=== PATIENT | female | born 1935 | race Caucasian/White ===

== ENCOUNTER 2018-07-14 20:12 | Emergency (ER) | payer MEDICARE, OTHER ==
[~2018-07-14] VITALS: Ht 170.2 cm; Wt 65.8 kg
[~2018-07-14 20:12] MED LIST: ATORVASTATIN CA10 MG PO; CLARITIN10 M1 PO; CLONIDINE HCL0.1 MG PO; FLONASE16 GM IH; HYDROXYZINE HCL10 MG PO; IBUPROFEN200 MG PO; LANSOPRAZOLE30 MG PO; LEVAQUIN500 MG PO; LOPRESSOR50 MG PO; LOSARTAN POTAS100 MG PO; MECLIZINE HCL12.5 MG PO; METOPROLOL TART50 MG PO; MIRALAX17 GM PO; MYRBETRIQ25 MG PO; NORCO 5-325 TA1 EACH PO; NORVASC10 MG PO; NORVASC5 MG PO; PRESERVISION T1 EACH PO; PRINIVIL10 MG PO; SUCRALFATE1 GM PO; TESSALON PERLE100 MG PO; XANAX0.25 MG PO; ZOLPIDEM TARTRA10 MG PO
--- OUTSIDE RECORDS SUMMARY | 2018-07-14 20:19 | XMS REPORT | Continuity of Care Document ---
Author Author [facility] Interface Address Unknown Phone Unavailable Problems Problem Status Onset Date Classification Date Reported Comments Source ABD PAIN Active 03/18/2016 [facility] PROCTITIS, CONSTIPATION, GI BLEED Active 03/18/2016 [facility] FECAL IMPACTION Active 03/18/2016 [facility] 241.0 THYROID NODULE Active 03/17/2014 [facility] VERTIGO Active 02/21/2013 [facility] DIZZINESS Active 02/21/2013 [facility] Nodular thyroid disease Active Problem 02/28/2018 [facility] Hyperlipidemia, unspecified Active Problem 02/28/2018 [facility] Nodular goiter Active Problem 05/25/2017 [facility] GERD Active Problem 02/28/2018 [facility] Insomnia Active Problem 02/28/2018 [facility] Hyperlipidemia Active Problem 02/28/2018 [facility] CIDP Active Problem 02/28/2018 [facility] Other pruritus Active Problem 02/28/2018 [facility] Anxiety Active Problem 02/28/2018 [facility] Vertigo Active Problem 02/28/2018 [facility] Schatzki's ring Active Problem 02/28/2018 [facility] Dysphagia, unspecified type Active Problem 02/28/2018 [facility] Generalized anxiety disorder Active Diagnosis 02/28/2018 [facility] Benign essential hypertension Active Problem 02/28/2018 [facility] Diverticulosis of intestine without bleeding, unspecified intestinal tract location Active Problem 02/28/2018 [facility] Goiter Active Problem 02/28/2018 [facility] Hiatal hernia Active Problem 02/28/2018 [facility] Benign essential tremor Active Problem 02/28/2018 [facility] Gastroesophageal reflux disease, esophagitis presence not specified Active Problem 02/28/2018 [facility] Primary insomnia Active Problem 02/28/2018 [facility] Insomnia Active Problem 09/26/2014 [facility] URI Active Diagnosis 12/24/2013 [facility] Cough Active Diagnosis 02/16/2013 [facility] Anxiety Active Problem 09/26/2014 [facility] GERD Active Problem 09/26/2014 [facility] HTN Active Problem 09/04/2014 [facility] CIDP Active Problem 09/26/2014 [facility] Allergic dermatitis Active Diagnosis 04/15/2014 [facility] Generalized anxiety disorder Active Problem 09/26/2014 [facility] Adverse effect of unspecified drugs, medicaments and biological substances, initial encounter Active Diagnosis 05/17/2017 [facility] HTN , benign Active Problem 09/26/2014 [facility] Seasonal allergies Active Diagnosis 12/24/2013 [facility] Left shoulder pain Active Diagnosis 12/24/2013 [facility] Thyroid nodule Active Problem 03/11/2016 [facility] Goiter Active Problem 09/26/2014 [facility] Benign essential tremor Active Problem 09/26/2014 [facility] Allergic rhinitis Active Diagnosis 04/15/2014 [facility] Post-nasal drip Active Diagnosis 04/15/2014 [facility] Radiculopathy Active Diagnosis 12/24/2013 [facility] Benign positional vertigo Active Diagnosis 12/24/2013 [facility] Radiculopathy affecting upper extremity Active Diagnosis 12/24/2013 [facility] Vertigo Active Diagnosis 04/15/2014 [facility] Itchy skin Active Diagnosis 04/15/2014 [facility] Edema, lower extremity Active Diagnosis 04/15/2014 [facility] Hospital discharge follow-up Active Diagnosis 04/15/2014 [facility] Cellulitis of hand Active Diagnosis 04/15/2014 [facility] HLD Active Problem 09/26/2014 [facility] Hematuria Active Diagnosis 07/29/2015 [facility] Body mass index of 22.0 to 22.9 in adult Active Diagnosis 07/16/2015 [facility] Hyperglycemia Active Diagnosis 07/22/2015 [facility] Normal body mass index Active Diagnosis 07/16/2015 [facility] Abnormal finding on urinalysis Active Diagnosis 07/16/2015 [facility] Pneumonia Active Diagnosis 08/05/2015 [facility] Essential tremor Active Diagnosis 07/16/2015 [facility] Cough Active Diagnosis 08/05/2015 [facility] Urinary tract infection Active Diagnosis 08/05/2015 [facility] Essential hypertension Active Diagnosis 07/22/2015 [facility] Prediabetes Active Diagnosis 07/22/2015 [facility] Dysuria Active Diagnosis 07/22/2015 [facility] Sinusitis Active Diagnosis 11/20/2015 [facility] Chronic hoarseness Active Diagnosis 11/20/2015 [facility] Gastroenteritis Active Diagnosis 07/11/2015 [facility] Abdominal pain Active Diagnosis 07/11/2015 [facility] Lower respiratory tract infection Active Diagnosis 07/11/2015 [facility] Recurrent pneumonia Active Diagnosis 10/27/2015 [facility] URI with cough and congestion Active Diagnosis 07/25/2016 [facility] Body mass index of 19 or less in adult Active Diagnosis 06/09/2016 [facility] Underweight Active Diagnosis 06/09/2016 [facility] Upper respiratory tract infection, unspecified type Active Diagnosis 06/09/2016 [facility] Routine general medical examination at a health care facility Active Diagnosis 06/09/2016 [facility] Degenerative disc disease Resolved Problem 03/24/2016 [facility] Hiatal hernia Resolved Problem 03/24/2016 [facility] Hypertension Resolved Problem 03/24/2016 [facility] Impaired glucose tolerance Resolved Problem 03/24/2016 [facility] Neuropathy Resolved Problem 03/24/2016 [facility] NONTOX UNINODULAR GOITER Active [facility] FECAL IMPACTION Active [facility] Medications Medication Details Route Status Patient Instructions Ordering Provider Order Date Source Toprol XL 1 tablet Orally Active 25 MG Orally Once a day Harrison 05/30/2017 [facility] Ceftin 1 tablet Orally Active 250 MG Orally Twice a day Lewis 07/14/2016 [facility] Amoxicillin 1 capsule Orally Active 250 MG Orally every 8 hrs Rendon Orourke 06/01/2016 [facility] Tylenol 650 mg, 2 tab, Route: PO, Drug form: TAB, Q6H, Dosing Weight 58.182, kg, PRN Pain Score 4-6, Start date: 03/20/16 15:41:00 [employer], Duration: 30 day, Stop date: 04/19/16 15:40:00 CSTNotes: Do not exceed 4 gm/day. (Same as: Tylenol) No Longer Active 03/20/2016 [facility] Losartan 100 mg, 2 tab, Route: PO, Drug form: TAB, QAM, Dosing Weight 58.182, kg, Start date: 03/20/16 9:00:00 [employer], Duration: 30 day, Stop date: 04/18/16 9:00:00 CSTNotes: (Same as: Cozamicaela) No Longer Active 03/20/2016 [facility] Streptococcus pneumoniae serotype 1 capsular antigen diphtheria [id number] protein conjugate vaccine / Streptococcus pneumoniae serotype 14 capsular antigen diphtheria [id number] protein conjugate vaccine / Streptococcus pneumoniae serotype 18C capsular antigen d 0.5 mL, Route: IM, Drug Form: INJ, Daily, Start date: 03/20/16 9:00:00 [employer], Stop date: 03/20/16 15:00:00 CSTNotes: Lightly roll vial (DO NOT SHAKE) before administration. (Same as: Prevnar 13) Inactive 03/20/2016 [facility] zolpidem 5 mg, 1 tab, Route: PO, Drug form: TAB, Bedtime, Dosing Weight 58.182, kg, Start date: 03/19/16 21:00:00 [employer], Duration: 30 day, Stop date: 04/17/16 21:00:00 CSTNotes: (Same As: Ambien) No Longer Active 03/20/2016 [facility] Dulcolax Laxative 10 mg, 1 supp, Route: ID, Drug form: SUPP, BID, Dosing Weight 58.182, kg, Start date: 03/19/16 17:00:00 [employer], Duration: 30 day, Stop date: 04/18/16 9:00:00 CSTNotes: (Same As: Dulcolax, Bisco-Lax) No Longer Active 03/19/2016 [facility] Miralax 17 gm, 1 pkt, Route: PO, Drug form: PWDR, BID, Dosing Weight 58.182, kg, Start date: 03/19/16 17:00:00 [employer], Duration: 30 day, Stop date: 04/18/16 9:00:00 CSTNotes: Dissolve in 8 oz of water or juice. (Same as: Miralax) No Longer Active 03/19/2016 [facility] oxybutynin 5 mg, 1 tab, Route: PO, Drug form: TAB, BID, Dosing Weight 58.182, kg, Start date: 03/19/16 17:00:00 [employer], Duration: 30 day, Stop date: 04/18/16 9:00:00 CSTNotes: Same as: Ditropan) No Longer Active 03/19/2016 [facility] Amlodipine 5 mg, 1 tab, Route: PO, Drug form: TAB, QPM, Dosing Weight 58.182, kg, Start date: 03/19/16 17:00:00 [employer], Duration: 30 day, Stop date: 04/17/16 17:00:00 CSTNotes: (Same as: Norvasc) No Longer Active 03/19/2016 [facility] Protonix 40 mg, 1 pkt, Route: NG, Drug form: GRAN/REC, Before Dinner, Dosing Weight 58.182, kg, Start date: 03/19/16 16:30:00 [employer], Duration: 30 day, Stop date: 04/17/16 16:30:00 [employer] No Longer Active 03/19/2016 [facility] Sodium Chloride 0.154 MEQ/ML Injectable Solution 1,000 mL, Rate: 100 ml/hr, Infuse over: 10 hr, Route: IV, Dosing Weight 58.182 kg, Total Volume: 1,000, Start date: 03/19/16 12:33:00 [employer], Duration: 30 day, Stop date: 04/18/16 12:32:00 [employer] No Longer Active 03/19/2016 [facility] Golytely 4,000 ml, Route: PO, Drug Form: PDR/REC, Dosing Weight 58.182, kg, ONCE, Start date: 03/19/16 12:32:00 [employer], Duration: 1 doses or times, Stop date: 03/19/16 12:32:00 CSTNotes: (polyethylene glycol electr olyte solution 4 Liter bottle) (Same as: Golytely, Colyte) Inactive 03/19/2016 [facility] Lactulose 20 gm, 30 ml, Route: PO, Drug Form: SYRP, Dosing Weight 58.182, kg, Daily, PRN Constipation, Start date: 03/19/16 12:32:00 [employer], Duration: 30 day, Stop date: 04/18/16 12:31:00 CSTNotes: (Same as:Chronulac) No Longer Active 03/19/2016 [facility] zolpidem 5 mg, 1 tab, Route: PO, Drug form: TAB, Bedtime, Dosing Weight 58.182, kg, PRN Sleep, Start date: 03/19/16 12:30:00 [employer], Duration: 30 day, Stop date: 04/18/16 12:29:00 CSTNotes: (Same As: Ambien) No Longer Active 03/19/2016 [facility] Meclizine 25 mg, 1 tab, Route: PO, Drug form: TAB, TID, Dosing Weight 58.182, kg, PRN Dizziness, Start date: 03/19/16 12:30:00 [employer], Duration: 30 day, Stop date: 04/18/16 12:29:00 CSTNotes: (Same as: Antivert) No Longer Active 03/19/2016 [facility] Clonidine Hydrochloride 0.1 MG Oral Tablet 0.1 mg, 1 tab, Route: PO, Drug form: TAB, Daily, Dosing Weight 58.182, kg, PRN Elevated BP, Start date: 03/19/16 12:29:00 [employer], Duration: 30 day, Stop date: 04/18/16 12:28:00 [employer] DES[employer], htnNotes: (Same As: Catapres) No Longer Active 03/19/2016 [facility] Alprazolam 0.25 MG Oral Tablet 0.25 mg, 1 tab, Route: PO, Drug form: TAB, BID, Dosing Weight 58.182, kg, PRN as needed for anxiety, Start date: 03/19/16 12:29:00 [employer], Duration: 30 day, Stop date: 04/18/16 12:28:00 CSTNotes: With food or milk (Same as: Xanax) No Longer Active 03/19/2016 [facility] oxybutynin 5 mg oral tablet 5 mg=1 tab, PO, BID, # 60 tab, 1 Refill(s) Active 03/19/2016 [facility] Alprazolam 0.25 MG Oral Tablet 0.25 mg=1 tab, PO, BID, PRN anxiety, stress, # 20 tab, 0 Refill(s) Active 03/19/2016 [facility] meclizine 25 mg oral tablet 25 mg=1 tab, PO, TID, PRN for dizziness, # 60 tab, 0 Refill(s) Active 03/19/2016 [facility] zolpidem 10 mg oral tablet 10 mg=1 tab, PO, Bedtime, # 14 tab, 0 Refill(s) No Longer Active 03/19/2016 [facility] Ondansetron 4 mg, 2 mL, Route: IVP, Drug form: INJ, Q6H, Dosing Weight 54.545, kg, PRN Nausea & Vomiting, Start date: 03/19/16 9:22:00 [employer], Duration: 30 day, Stop date: 04/18/16 9:21:00 CSTNotes: (Same as: Zofran) MEDICATION WASTE Product Size: 4 mg Product Wasted: ___ mg No Longer Active 03/19/2016 [facility] Docusate 100 mg, 1 cap, Route: PO, Drug form: CAP, BID, Dosing Weight 54.545, kg, PRN Constipation, Start date: 03/19/16 9:22:00 [employer], Duration: 30 day, Stop date: 04/18/16 9:21:00 CSTNotes: (Same as: Colace) (Do Not Crush) No Longer Active 03/19/2016 [facility] Zofran 4 mg, Route: IVP, Drug form: INJ, ONCE, Dosing Weight 54.545, kg, Priority: STAT, Start date: 03/19/16 7:28:00 [employer] DES[employer], Stop date: 03/19/16 7:28:00 [employer] Inactive 03/19/2016 [facility] Medrol (Mathew) as directed Orally Active 4 mg Orally as directed [facility] 11/05/2015 [facility] Augmentin 1 tablet Orally Active 875-125 MG Orally every 12 hrs Justice Orourke 10/21/2015 [facility] Macrobid 1 capsule with food Orally Active 100 mg Orally every 12 hrs Silvestre 07/31/2015 [facility] Bromfed DM 10 ml as needed Orally Active 30-2-10 MG/5ML Orally every 6 hrs prn Perry 07/31/2015 [facility] Zithromax Z-Mathew 2 tablets on the first day, then 1 tablet daily for 4 days Orally Active 250 MG Orally Once a day Perry 07/31/2015 [facility] Macrobid 1 capsule with food Orally Active 100 mg Orally every 12 hrs Silvestre 07/17/2015 [facility] Zithromax Z-Mathew 2 tablets on the first day, then 1 tablet daily for 4 days Orally Active 250 MG Orally Once a day Perry 07/17/2015 [facility] Medrol (Mathew) as directed Orally Active 4 mg Orally as directed [facility] Orourke 07/08/2015 [facility] Levaquin 1 tablet Orally No Longer Active 500 mg Orally Once a day Silvestre 07/07/2015 [facility] Klonopin 1/2 half tablet Orally No Longer Active 1 MG Orally Twice a day JusticeSharad 08/26/2014 [facility] Lipitor 1 tablet Orally Active 10 mg Orally Once a day Ghebranious 08/26/2014 [facility] Hydrochlorothiazide 1 tablet Orally Active 25 MG Orally Once a day Ghebranious 04/08/2014 [facility] Antivert 1 tablet Orally Active 25 MG Orally tid as needed for dizziness Justice Orourke 03/17/2014 [facility] Antivert 1 tablet Orally Active 25 MG Orally tid as needed for dizziness Lewis 03/17/2014 [facility] HydrOXYzine HCl 1 tablet as needed Orally Active 10 mg Orally Three times a day prn Lewis 11/12/2013 [facility] Bromfed DM 10 ml as needed Orally Active 30-2-10 MG/5ML Orally every 6 hrs Ghebranious 11/04/2013 [facility] Zanaflex 1 tablet as needed Orally Active 2 MG Orally qhs prn Ghebranious 11/04/2013 [facility] Naprosyn 1 tablet as needed Orally Active 500 mg Orally every 12 hrs Ghebranious 11/04/2013 [facility] Keflex 1 capsule Orally Active 500 mg Orally Twice a day Ghebranious 11/04/2013 [facility] Ceftin 1 tablet Orally Active 250 MG Orally twice a day (bid) Ghebranious 03/11/2013 [facility] Neurontin 1 capsule Orally Active 100 mg Orally Three times a day Ghebranious 02/25/2013 [facility] zolpidem 10 mg oral tablet 10 mg, 1 tab, PO, Bedtime, PRN, 30 tab, Insomnia, Substitution Allowed, TAB Active 02/23/2013 [facility] meclizine 25 mg oral tablet 25 mg, 1 tab, PO, TID, 90 tab, Substitution Allowed, TAB Active 02/23/2013 [facility] losartan 50 mg oral tablet 100 mg, 2 tab, PO, QAM, 30 tab, Substitution Allowed, TAB Active 02/23/2013 [facility] fluocinonide topical 0.05% cream 1 appl, TOP, BID, 60 gm, Substitution Allowed, CRM Active 02/23/2013 [facility] clonidine 0.1 mg oral tablet 0.1 mg, 1 tab, PO, Daily, PRN, 30 tab, Other -See Comment | SBP>135, Substitution Allowed, TAB Active 02/23/2013 [facility] amLODipine 5 mg oral tablet 5 mg, 1 tab, PO, QPM, 30 tab, Substitution Allowed, TAB Active 02/23/2013 [facility] losartan 100 mg, 2 tab, Route: PO, Drug form: TAB, QAM, Dosing Weight 68.182, kg, Start date: 02/23/13 9:00:00, Duration: 30 day, Stop date: 03/24/13 9:00:00(Same as: Hiwot) Inactive 02/23/2013 [facility] lansoprazole 30 mg, Route: PO, Drug form: DRC, QAM, Dosing Weight 68.182, kg, Start date: 02/23/13 9:00:00, Duration: 30 day, Stop date: 03/24/13 9:00:00 No Longer Active 02/23/2013 [facility] Protonix 40 mg, 1 tab, Route: PO, Drug form: ECTAB, Before Breakfast, Start date: 02/23/13 7:30:00, Duration: 30 day, Stop date: 03/24/13 7:30:00Tablet should not be chewed or crushed. (Same as: Protonix) Inactive Ghebranious 02/23/2013 [facility] fluocinonide topical 0.05% cream 1 appl, Route: TOP, BID, Drug form: CRM, Start date: 02/22/13 17:00:00, Duration: 30 day, Stop date: 03/24/13 9:00:00(Same as: Lidex) No Longer Active ebranious 02/22/2013 [facility] amLODipine 5 mg, 1 tab, Route: PO, Drug form: TAB, QPM, Dosing Weight 68.182, kg, Start date: 02/22/13 17:00:00, Duration: 30 day, Stop date: 03/23/13 17:00:00(Same as: Norvasc) No Longer Active ebranious 02/22/2013 [facility] zolpidem 10 mg, 1 tab, Route: PO, Drug form: TAB, Bedtime, Dosing Weight 68.182, kg, PRN Insomnia, Start date: 02/22/13 13:19:00, Duration: 30 day, Stop date: 03/24/13 13:18:00(Same As: Ambien) No Longer Active ebranious 02/22/2013 [facility] clonidine 0.1 mg oral tablet 0.1 mg, 1 tab, Route: PO, Drug form: TAB, Daily, Dosing Weight 68.182, kg, PRN Other -See Comment, Start date: 02/22/13 13:19:00, Duration: 30 day, Stop date: 03/24/13 13:18:00, SBP>135(Same As: Catapres) [facility] meclizine 25 mg oral tablet, chewable 25 mg, 1 tab, CHEW, TID, PRN, 60 tab, for motion sickness, Substitution Allowed, CHEWTAB On Hold Ghebranious 02/22/2013 [facility] Pepcid 20 mg, 1 tab, Route: PO, Drug form: TAB, BID, Dosing Weight 68.182, kg, Start date: 02/22/13 9:00:00, Duration: 30 day, Stop date: 03/23/13 17:00:00(Same as: Pepcid) No Longer Active [place] 02/22/2013 [facility] aspirin 325 mg tablet 325 mg, Route: PO, Drug form: TAB, Daily, Dosing Weight 68.182, kg, Start date: 02/22/13 9:00:00, Duration: 30 day, Stop date: 03/23/13 9:00:00 No Longer Active Jassi 02/22/2013 [facility] Antivert 25 mg, 1 tab, Route: PO, Drug form: TAB, TID, Dosing Weight 68.182, kg, Start date: 02/22/13 9:00:00, Duration: 30 day, Stop date: 03/23/13 17:00:00(Same as: Antivert) [facility] SoluMedrol 100 mg, 1.6 mL, Route: IVP, Drug form: INJ, ONCE, Dosing Weight 68.182, kg, Priority: NOW, Start date: 02/22/13 8:46:00, Stop date: 02/22/13 8:46:00(Same as:Solu-Medrol, A-Methapred) [facility] atropine 0.5 mg, 5 mL, Route: IVP, Drug form: INJ, PRN, PRN Bradycardia, Start date: 02/21/13 17:59:00, Duration: 30 day, Stop date: 03/23/13 16:58:00 [facility] nitroglycerin 0.4 mg sublingual tablet 0.4 mg, 1 tab, Route: SL, Drug form: TAB, Q5Min, PRN Chest Pain, Start date: 02/21/13 17:59:00, Duration: 30 day, Stop date: 03/23/13 16:58:00(Same as:Nitroquick, Nitrostat) "Do Not Crush" Sublingual tablet [facility] Saline Flush 0.9% 5 ml, Route: IVP, Drug Form: INJ, Dosing Weight 68.182, kg, PRN, PRN Line Flush, Start date: 02/21/13 17:06:00, Duration: 30 day, Stop date: 03/23/13 16:05:00Same as: BD Posiflush Sterile No Longer Active [facility] 02/21/2013 [facility] ondansetron 4 mg, 2 mL, Route: IVP, Drug form: INJ, Q8H, Dosing Weight 68.182, kg, PRN Nausea & Vomiting, Start date: 02/21/13 17:06:00, Duration: 30 day, Stop date: 03/23/13 17:05:00(Same as: Zofran) No Longer Active [facility] 02/21/2013 [facility] acetaminophen 650 mg, 20.3 mL, Route: PO, Drug form: LIQ, Q4H, Dosing Weight 68.182, kg, PRN Pain 1-3/Temp > 100.4 F, Start date: 02/21/13 17:06:00, Duration: 30 day, Stop date: 03/23/13 17:05:00Max [id number]/day (4 gm/day). (Same as: Tylenol) No Longer Active [facility] 02/21/2013 [facility] docusate 100 mg, 1 cap, Route: PO, Drug form: CAP, BID, Dosing Weight 68.182, kg, PRN Constipation, Start date: 02/21/13 17:06:00, Duration: 30 day, Stop date: 03/23/13 17:05:00(Same as: Colace) (Do Not Crush) No Longer Active [facility] 02/21/2013 [facility] meclizine 25 mg, 1 tab, Route: PO, Drug form: TAB, QID, Dosing Weight 68.182, kg, Priority: STAT, Start date: 02/21/13 17:06:00, Duration: 30 day, Stop date: 03/23/13 17:00:00(Same as: Antivert) No Longer Active [facility] 02/21/2013 [facility] clonidine 0.1 mg oral tablet 0.1 mg, PO, Daily, PRN, 60 tab, as needed for diastolic BP > 90, Substitution Allowed On Hold [facility] 02/21/2013 [facility] fluocinonide topical 0.05% cream 1 appl, TOP, BID, 15 gm, Substitution Allowed, to affected area, CRMto affected area [facility] zolpidem 10 mg oral tablet 10 mg, 1 tab, PO, Bedtime, PRN, for sleep, Substitution Allowed, TAB On Hold ious 02/21/2013 [facility] amLODipine 5 mg oral tablet 5 mg, 1 tab, PO, QPM, 30 tab, Substitution Allowed, TAB [facility] losartan 100 mg oral tablet 100 mg, 1 tab, PO, QAM, 30 tab, Substitution Allowed, TAB [facility] lansoprazole 30 mg oral delayed release capsule 30 mg, 1 cap, PO, QAM, 30 cap, Substitution Allowed On Hold 02/21/2013 [facility] aspirin 81 mg tablet, chewable 1 tab, Route: PO, ONCE, Dosing Weight 68.182, kg, Start date: 02/21/13 11:21:00, Stop date: 02/21/13 11:21:00 Inactive Jassi 02/21/2013 [facility] SoluMedrol 100 mg, Route: IV, ONCE, Dosing Weight 68.182, kg, Start date: 02/21/13 11:21:00, Stop date: 02/21/13 11:21:00 Inactive Jassi 02/21/2013 [facility] meclizine 25 mg, Route: PO, Drug form: TAB, ONCE, Dosing Weight 68.182, kg, Priority: STAT, Start date: 02/21/13 11:20:00, Stop date: 02/21/13 11:20:00 Inactive Jassi 02/21/2013 [facility] Lidex as directed Externally Active 0.05 % Externally twice a day (bid) as needed (prn) Gilberto 02/11/2013 [facility] Lidex as directed Externally Active 0.05 % Externally twice a day (bid) as needed (prn) Ghebranious 02/11/2013 [facility] Zolpidem Tartrate 1 tablet orally Active 10 mg orally once every night as needed Justice Orourke 12/26/2012 [facility] Zolpidem Tartrate 1 tablet Orally Active 5 MG Orally once every night as needed ebranious 12/26/2012 [facility] Zolpidem Tartrate 1 tablet PO Active 10 mg PO once every night as needed Ghebranious 12/26/2012 [facility] Zolpidem Tartrate 1 tablet at bedtime Orally Active 5 MG Orally qhs Ghebranious 12/26/2012 [facility] Zolpidem Tartrate 1 tablet orally Active 10 mg orally once every night as needed Lewis 12/26/2012 [facility] Alprazolam 1 tablet Orally Active 0.25 MG Orally once a day prn USE SPARINGLY Justice Orourke 09/13/2012 [facility] Alprazolam 1 tablet Orally Active 0.25 MG Orally once a day prn Rendon Orourke 09/13/2012 [facility] Alprazolam 1 tablet Orally Active 0.25 MG Orally daily as needed ebranious 09/13/2012 [facility] Atorvastatin Calcium 1 tablet Orally Active 10 mg Orally Once a day Justice Orourke [facility] Losartan Potassium 1 tablet orally Active 100 mg orally Once a day Justice Orourke [facility] Lansoprazole 1 tablet Orally Active 30 mg Orally once a day Lewis [facility] Clonidine HCl 1 tablet Orally No Longer Active 0.1 MG Orally once every night Justice Orourke [facility] Amlodipine Besylate 1 tablet orally Active 5 MG orally once a day Ghebranious [facility] HydrOXYzine HCl TAKE 1 TABLET THREE TIMES DAILY NEEDED NA Active 10 MG Justice Orourke [facility] Lipitor 1 tablet Orally Active 10 Orally Once a day Justice Orourke [facility] Atorvastatin Calcium 1 tablet Orally Active 10 MG Orally Once a day Justice Orourke [facility] Lansoprazole TAKE 1 CAPSULE EVERY DAY NA Active 30 MG Justice Orourke [facility] Amlodipine Besylate 1 tablet by mouth Active 5 MG by mouth daily Justice Orourke [facility] Losartan Potassium 1 tablet Orally Active 100 mg Orally Once a day Justice Orourke [facility] Oxybutynin Chloride 1 tablet Orally Active 5 MG Orally Twice a day Justice Orourke [facility] Antivert 1 tablet as needed Orally Active 25 MG Orally three times a day (tid) as needed (prn) Melquiades [facility] Zofran Unknown Orally Active 4 MG Orally Ghebranious [facility] Amlodipine Besylate 1 tablet orally Active 5 MG orally once a day Justice Orourke [facility] Oxybutynin Chloride 1 tablet Orally Active 5 MG Orally Twice a day Lewis [facility] Losartan Potassium TAKE 1 TABLET ONE TIME DAILY NA Active 100 MG Lewis [facility] Allergies, Adverse Reactions, Alerts Substance Category Reaction Severity Reaction type Status Date Reported Comments Source Morphine Sulfate Adverse Reaction Info Not Available Adverse Reaction Active 05/12/2017 [facility] Aspir-81 Adverse Reaction Info Not Available Adverse Reaction Active 05/12/2017 [facility] aspirin drug allergy Allergy [facility] morphine drug allergy Allergy [facility] Immunizations Immunization Date Given Site Status Last Updated Comments Source pneumococcal 13-valent vaccine 03/20/2016 Not Given [facility] Results Order Name Results Value Reference Range Date Interpretation Comments Source CHEM PANEL eGFR 86 mL/min/1.73m2 03/21/2016 Result Comment: The eGFR is calculated using the CKD-EPI formula. In most young, healthy individuals the eGFR will be >90 mL/min/1.73m2. The eGFR declines with age. An eGFR of 60-89 may be normal in some populations, particularly the elderly, for whom the CKD-EPI formula has not been extensively validated. Use of the eGFR is not recommended in the following populations: Individuals with unstable creatinine concentrations, including patients and those with serious co-morbid conditions. Patients with extremes in muscle mass or diet. The data above are obtained from the National Kidney Disease Education Program (NKDEP) which additionally recommends that when the eGFR is used in patients with extremes of body mass index for purposes of drug dosing, the eGFR should be multiplied by the estimated BMI. [facility] CHEM PANEL Chloride Lvl 109 meq/L 95 - 109 03/21/2016 [facility] CHEM PANEL Potassium Lvl 3.1 meq/L 3.5 - 5.1 03/21/2016 [facility] CHEM PANEL Sodium Lvl 145 meq/L 135 - 145 03/21/2016 [facility] CHEM PANEL Calcium Lvl 7.6 mg/dL 8.5 - 10.5 03/21/2016 [facility] CHEM PANEL CO2 28 meq/L 24 - 32 03/21/2016 [facility] CHEM PANEL Creatinine Lvl 0.58 mg/dL 0.50 - 1.40 03/21/2016 [facility] CHEM PANEL BUN 6 mg/dL 7 - 22 03/21/2016 [facility] CHEM PANEL Glucose Lvl 69 mg/dL 70 - 99 03/21/2016 [facility] CHEM PANEL AGAP 11.1 meq/L 10.0 - 20.0 03/21/2016 [facility] HEMATOLOGY WBC 6.1 K/CMM 3.7 - 10.4 03/21/2016 [facility] HEMATOLOGY RBC 3.60 M/CMM 4.20 - 5.40 03/21/2016 [facility] HEMATOLOGY Hct 31.1 % 36.0 - 48.0 03/21/2016 [facility] HEMATOLOGY Hgb 10.0 g/dL 12.0 - 16.0 03/21/2016 [facility] HEMATOLOGY MPV 9.1 fL 7.4 - 10.4 03/21/2016 [facility] MCH 27.8 pg 27.0 - 31.0 03/21/2016 [facility] MCHC 32.2 g/dL 32.0 - 36.0 03/21/2016 [facility] HEMATOLOGY RDW 13.7 % 11.5 - 14.5 03/21/2016 [facility] HEMATOLOGY Platelet 158 K/CMM 133 - 450 03/21/2016 [facility] HEMATOLOGY MCV 86.5 fL 80.0 - 98.0 03/21/2016 [facility] HEMATOLOGY Lymphocytes 39.3 % 20.0 - 40.0 03/21/2016 [facility] Lymphocytes # 2.4 K/CMM 1.0 - 5.5 03/21/2016 [facility] HEMATOLOGY Segs-Bands # 3.1 K/CMM 1.5 - 8.1 03/21/2016 [facility] HEMATOLOGY Monocytes # 0.5 K/CMM 0.0 - 0.8 03/21/2016 [facility] HEMATOLOGY Eosinophils # 0.1 K/CMM 0.0 - 0.5 03/21/2016 [facility] HEMATOLOGY Segs 50.0 % 45.0 - 75.0 03/21/2016 [facility] HEMATOLOGY Monocytes 8.5 % 2.0 - 12.0 03/21/2016 [facility] HEMATOLOGY Eosinophils 1.8 % 0.0 - 4.0 03/21/2016 [facility] HEMATOLOGY Basophils 0.4 % 0.0 - 1.0 03/21/2016 [facility] HEMATOLOGY Hct 32.6 % 36.0 - 48.0 03/19/2016 [facility] HEMATOLOGY Hgb 10.6 g/dL 12.0 - 16.0 03/19/2016 [facility] URINE AND STOOL Occult Bld Stl Positive *ABN* (03/19/16 5:42 AM) Negative 03/19/2016 [facility] URINE AND STOOL UA Sq Epi Occasional /LPF Few /LPF 03/19/2016 [facility] URINE AND STOOL UA WBC 1 /HPF 0 - 5 03/19/2016 [facility] URINE AND STOOL UA Urobilinogen <=1.0 mg/dL 0.1 - 1.0 03/19/2016 [facility] URINE AND STOOL UA RBC 1 /HPF 0 - 2 03/19/2016 [facility] URINE AND STOOL UA Color Ltyellow 03/19/2016 [facility] URINE AND STOOL UA pH 7.0 5.0 - 8.0 03/19/2016 [facility] URINE AND STOOL UA Protein Negative mg/dL Negative mg/dL 03/19/2016 [facility] URINE AND STOOL UA Spec Grav 1.016 <=1.030 03/19/2016 [facility] URINE AND STOOL UA Glucose Negative mg/dL Negative mg/dL 03/19/2016 [facility] URINE AND STOOL UA Turbidity Clear (03/19/16 5:16 AM) Clear 03/19/2016 [facility] URINE AND STOOL UA Blood Negative (03/19/16 5:16 AM) Negative 03/19/2016 [facility] URINE AND STOOL UA Nitrite Negative (03/19/16 5:16 AM) Negative 03/19/2016 [facility] URINE AND STOOL UA Ketones Negative mg/dL Negative mg/dL 03/19/2016 [facility] URINE AND STOOL UA Bili Negative *NA* (03/19/16 5:16 AM) Negative 03/19/2016 [facility] URINE AND STOOL UA Leuk Est Negative (03/19/16 5:16 AM) Negative 03/19/2016 [facility] BLOOD BANK RESULTS ABO/Rh A POS 03/19/2016 [facility] BLOOD BANK RESULTS Antibody Scrn Negative (03/19/16 3:34 AM) 03/19/2016 [facility] HEMATOLOGY PT 13.0 s 12.0 - 14.7 03/19/2016 [facility] HEMATOLOGY INR 0.96 0.85 - 1.17 03/19/2016 [facility] HEMATOLOGY PTT 33.7 s 22.9 - 35.8 03/19/2016 [facility] CHEM PANEL Lipase Lvl 239 unit/L 73 - 393 03/19/2016 [facility] ELECTROLYTES AGAP 12.3 meq/L 10.0 - 20.0 03/19/2016 [facility] ELECTROLYTES A/G Ratio 1.2 0.7 - 1.6 03/19/2016 [facility] ELECTROLYTES B/C Ratio 23 6 - 25 03/19/2016 [facility] ELECTROLYTES Globulin 3.2 g/dL 2.7 - 4.2 03/19/2016 [facility] ELECTROLYTES eGFR 81 mL/min/1.73m2 03/19/2016 Result Comment: The eGFR is calculated using the CKD-EPI formula. In most young, healthy individuals the eGFR will be >90 mL/min/1.73m2. The eGFR declines with age. An eGFR of 60-89 may be normal in some populations, particularly the elderly, for whom the CKD-EPI formula has not been extensively validated. Use of the eGFR is not recommended in the following populations: Individuals with unstable creatinine concentrations, including patients and those with serious co-morbid conditions. Patients with extremes in muscle mass or diet. The data above are obtained from the National Kidney Disease Education Program (NKDEP) which additionally recommends that when the eGFR is used in patients with extremes of body mass index for purposes of drug dosing, the eGFR should be multiplied by the estimated BMI. [facility] ELECTROLYTES Albumin Lvl 3.9 g/dL 3.5 - 5.0 03/19/2016 [facility] ELECTROLYTES Calcium Lvl 8.9 mg/dL 8.5 - 10.5 03/19/2016 [facility] ELECTROLYTES ALT 20 unit/L 0 - 65 03/19/2016 [facility] ELECTROLYTES Total Protein 7.1 g/dL 6.4 - 8.4 03/19/2016 [facility] ELECTROLYTES Bili Total 0.4 mg/dL 0.2 - 1.3 03/19/2016 [facility] ELECTROLYTES CO2 28 meq/L 24 - 32 03/19/2016 [facility] ELECTROLYTES Chloride Lvl 104 meq/L 95 - 109 03/19/2016 [facility] ELECTROLYTES AST 21 unit/L 0 - 37 03/19/2016 [facility] ELECTROLYTES Alk Phos 51 unit/L 39 - 136 03/19/2016 [facility] ELECTROLYTES Sodium Lvl 141 meq/L 135 - 145 03/19/2016 [facility] ELECTROLYTES Creatinine Lvl 0.69 mg/dL 0.50 - 1.40 03/19/2016 [facility] ELECTROLYTES BUN 16 mg/dL 7 - 22 03/19/2016 [facility] ELECTROLYTES Glucose Lvl 93 mg/dL 70 - 99 03/19/2016 [facility] ELECTROLYTES Potassium Lvl 3.3 meq/L 3.5 - 5.1 03/19/2016 [facility] HEMATOLOGY Monocytes # 0.8 K/CMM 0.0 - 0.8 03/19/2016 [facility] Lymphocytes 16.8 % 20.0 - 40.0 03/19/2016 [facility] HEMATOLOGY Segs 75.4 % 45.0 - 75.0 03/19/2016 [facility] HEMATOLOGY Basophils 0.2 % 0.0 - 1.0 03/19/2016 [facility] Monocytes 7.2 % 2.0 - 12.0 03/19/2016 [facility] HEMATOLOGY Eosinophils 0.4 % 0.0 - 4.0 03/19/2016 [facility] Segs-Bands # 7.9 K/CMM 1.5 - 8.1 03/19/2016 [facility] Lymphocytes # 1.8 K/CMM 1.0 - 5.5 03/19/2016 [facility] MPV 9.0 fL 7.4 - 10.4 03/19/2016 [facility] MCHC 33.8 g/dL 32.0 - 36.0 03/19/2016 [facility] MCH 28.9 pg 27.0 - 31.0 03/19/2016 [facility] Platelet 173 K/CMM 133 - 450 03/19/2016 [facility] RDW 13.6 % 11.5 - 14.5 03/19/2016 [facility] MCV 85.5 fL 80.0 - 98.0 03/19/2016 [facility] WBC 10.5 K/CMM 3.7 - 10.4 03/19/2016 [facility] Hct 36.0 % 36.0 - 48.0 03/19/2016 [facility] Hgb 12.2 g/dL 12.0 - 16.0 03/19/2016 [facility] RBC 4.21 M/CMM 4.20 - 5.40 03/19/2016 [facility] ED Abdomen/Pelvis IV contrast only CT ED Abdomen/Pelvis IV contrast only CT CT ABDOMEN AND PELVIS WITH CONTRAST DATED 03/19/2016. CLINICAL INDICATION: Acute abdominal pain. COMPARISON: None. TECHNIQUE: A CT of the abdomen and pelvis was performed using helical images from the thoracic outlet through the pubic symphysis after the intravenous administration of 100cc Omnipaque 300. The study was ordered without bowel contrast. Sagittal and coronal reconstructions were performed. Delayed postcontrast images were obtained. CT Radiation Dose: JMP=[id number] mGy-cm FINDINGS: SOLID ORGANS: No acute CT abnormalities of the liver, spleen, pancreas, adrenal glands or kidneys are detected. There is no CT evidence of acute renal collecting system obstruction or calcified renal collecting system stone. BILIARY: The patient is status post cholecystectomy with mild postcholecystectomy ectasia of the common bile duct and proximal hepatic ducts. BOWEL: Bowel assessment is limited by the absence of bowel contrast. The wall of the rectum appears thickened with mild injection of the perirectal fat. This appearance suggests proctitis. Several colonic diverticula are identified without CT evidence of acute diverticulitis. Increased fluid is identified within nondilated small bowel as well as in the ascending and transverse colon. No intestinal dilatation is identified to suggest obstruction. The appendix is not identified and may be surgically absent. No secondary signs concerning for appendicitis are noted. PERITONEUM: No free intraperitoneal air or significant free intraperitoneal fluid. RETROPERITONEUM: The abdominal aorta is normal in caliber. No retroperitoneal mass or adenopathy. PELVIS: The patient is status post hysterectomy. The ovaries are not identified and may be surgically absent. No adnexal masses are noted. The urinary bladder is unremarkable. LOWER CHEST: The lung bases appear clear of acute disease. A hiatal hernia is identified in the lower mediastinum. ADDITIONAL COMMENTS: None. IMPRESSION: 1. CT findings suspicious for acute proctitis. 2. Increased fluid is identified within nondilated small bowel. While nonspecific, this pattern could indicate gastroenteritis SL: 131 03/19/2016 - - Read by: Romeo Raza MD Dictated Date/time: 03/19/16 04:19 Electronically Signed by: Romeo Raza MD 03/19/16 04:36 FINAL REPORT [facility] Thyroid scan - Multiple uptakes MS Thyroid scan - Multiple uptakes NM THYROID SCAN AND UPTAKE: HISTORY: Thyroid nodule. PROCEDURE: The patient ingested 233 uCi of I-123 sodium orally followed by uptakes at 6 and 24 hours. Multiplanar imaging of the gland was done at 6 hours. FINDINGS: The 6 hour uptake is 10.7% (normal 6-24%). The 24 hour uptake is 20.1% (normal 10-30%). There is homogeneous uptake of activity in both lobes which appear normal in size. There is no evidence of hot or cold nodules. IMPRESSION: 1. Normal thyroid uptakes. 2. Normal imaging of the thyroid gland. Correlation with ultrasound is suggested to evaluate the clinically described nodule. SL:13 03/26/2014 - - Read by: Abdirahman Iqbal MD Dictated Date/time: 03/27/14 09:15 Electronically Signed by: Abdirahman Iqbal MD 03/27/14 09:19 FINAL REPORT [facility] URINALYSIS UA Color Ltyellow 02/21/2013 [facility] URINALYSIS UA Urobilinogen <=1.0 mg/dL 0.1 - 1.0 02/21/2013 [facility] URINALYSIS UA Nitrite Negative (02/21/2013 13:15:52) Negative 02/21/2013 Normal [facility] URINALYSIS UA Leuk Est Negative (02/21/2013 13:15:52) Negative 02/21/2013 Normal [facility] URINALYSIS UA Sq Epi Occasional /LPF Few 02/21/2013 [facility] URINALYSIS UA WBC 2 /HPF 0 - 5 02/21/2013 Normal [facility] URINALYSIS UA RBC 1 /HPF 0 - 2 02/21/2013 Normal [facility] URINALYSIS UA Blood Negative (02/21/2013 13:15:52) Negative 02/21/2013 Normal [facility] URINALYSIS UA Bili Negative *NA* (02/21/2013 13:15:52) Negative 02/21/2013 [facility] URINALYSIS UA Ketones Negative mg/dL Negative 02/21/2013 [facility] URINALYSIS UA Glucose Negative mg/dL Negative 02/21/2013 [facility] URINALYSIS UA pH 7.0 5.0 - 8.0 02/21/2013 Normal [facility] URINALYSIS UA Protein Negative mg/dL Negative 02/21/2013 Normal [facility] URINALYSIS UA Spec Grav 1.013 <=1.030 02/21/2013 Normal [facility] URINALYSIS UA Turbidity Clear (02/21/2013 13:15:52) Clear 02/21/2013 Normal [facility] CHEMISTRY eGFR 61 mL/min/1.73m2 02/21/2013 1Result Comment: The eGFR is calculated using the CKD-EPI formula. In most young, healthy individuals the eGFR will be >90 mL/min/1.73m2. The eGFR declines with age. An eGFR of 60-89 may be normal in some populations, particularly the elderly, for whom the CKD-EPI formula has not been extensively validated. Use of the eGFR is not recommended in the following populations: Individuals with unstable creatinine concentrations, including patients and those with serious co-morbid conditions. Patients with extremes in muscle mass or diet. The data above are obtained from the National Kidney Disease Education Program (NKDEP) which additionally recommends that when the eGFR is used in patients with extremes of body mass index for purposes of drug dosing, the eGFR should be multiplied by the estimated BMI. [facility] CHEMISTRY Total Protein 7.2 g/dL 6.4 - 8.4 02/21/2013 Normal [facility] CHEMISTRY ALANINE AMINOTRANSFERASE 22 unit/L 0 - 65 02/21/2013 Normal [facility] CHEMISTRY Albumin Lvl 3.9 g/dL 3.5 - 5.0 02/21/2013 Normal [facility] CHEMISTRY ASPARTATE TRANSAMINASE 14 unit/L 0 - 37 02/21/2013 Normal [facility] CHEMISTRY Glucose Lvl 108 mg/dL 70 - 99 02/21/2013 HI 2Interpretive Data: Adult reference range values reflect the clinical guidelines of the [place] [employer]. [facility] CHEMISTRY Creatinine Lvl 0.9 mg/dL 0.5 - 1.4 02/21/2013 Normal [facility] CHEMISTRY BUN 22 mg/dL 7 - 22 02/21/2013 Normal [facility] CHEMISTRY Calcium Lvl 8.9 mg/dL 8.5 - 10.5 02/21/2013 Normal [facility] CHEMISTRY CO2 29 meq/L 24 - 32 02/21/2013 Normal [facility] CHEMISTRY Alk Phos 74 unit/L 39 - 136 02/21/2013 Normal [facility] CHEMISTRY Bili Total 0.2 mg/dL 0.2 - 1.3 02/21/2013 Normal [facility] CHEMISTRY Potassium Lvl 3.8 meq/L 3.5 - 5.1 02/21/2013 Normal [facility] CHEMISTRY Chloride Lvl 108 meq/L 95 - 109 02/21/2013 Normal [facility] CHEMISTRY Sodium Lvl 145 meq/L 135 - 145 02/21/2013 Normal [facility] CHEMISTRY Globulin 3.3 g/dL 2.0 - 4.0 02/21/2013 Normal [facility] CHEMISTRY B/C Ratio 24 6 - 25 02/21/2013 Normal [facility] CHEMISTRY A/G Ratio 1.2 0.7 - 1.6 02/21/2013 Normal [facility] CHEMISTRY AGAP 11.8 meq/L 10.0 - 20.0 02/21/2013 Normal [facility] HEMATOLOGY Lymphocytes # 1.7 K/CMM 1.0 - 5.5 02/21/2013 Normal [facility] HEMATOLOGY Monocytes # 0.6 K/CMM 0.0 - 0.8 02/21/2013 [facility] HEMATOLOGY Basophils # 0.0 K/CMM 0.0 - 0.2 02/21/2013 [facility] HEMATOLOGY Eosinophils # 0.0 K/CMM 0.0 - 0.5 02/21/2013 Normal [facility] HEMATOLOGY Eosinophils 0.5 % 0.0 - 4.0 02/21/2013 Normal [facility] HEMATOLOGY Segs-Bands # 6.5 K/CMM 1.5 - 8.1 02/21/2013 Normal [facility] HEMATOLOGY Basophils 0.2 % 0.0 - 1.0 02/21/2013 Normal [facility] HEMATOLOGY Segs 73.8 % 45.0 - 75.0 02/21/2013 Normal [facility] HEMATOLOGY Lymphocytes 19.2 % 20.0 - 40.0 02/21/2013 LOW [facility] HEMATOLOGY Monocytes 6.3 % 2.0 - 12.0 02/21/2013 Normal [facility] HEMATOLOGY MPV 9.6 fL 7.4 - 10.4 02/21/2013 Normal [facility] HEMATOLOGY Platelet 221 K/CMM 133 - 450 02/21/2013 Normal [facility] HEMATOLOGY RDW 14.0 % 11.5 - 14.5 02/21/2013 Normal [facility] HEMATOLOGY Hct 37.8 % 36.0 - 48.0 02/21/2013 Normal [facility] HEMATOLOGY Hgb 12.1 g/dL 12.0 - 16.0 02/21/2013 Normal [facility] HEMATOLOGY RBC X 10x6 4.23 M/CMM 4.20 - 5.40 02/21/2013 Normal [facility] HEMATOLOGY WBC X 10x3 8.8 K/CMM 3.7 - 10.4 02/21/2013 Normal [facility] HEMATOLOGY MCV 89.4 fL 81.0 - 99.0 02/21/2013 Normal [facility] HEMATOLOGY MCH 28.7 pg 27.0 - 31.0 02/21/2013 Normal [facility] HEMATOLOGY MCHC 32.1 g/dL 32.0 - 36.0 02/21/2013 Normal [facility] Brain wo contrast CT Brain wo contrast CT CT BRAIN WITHOUT CONTRAST INDICATION: Vertigo COMPARISON: None FINDINGS: There are microangiopathic changes of the brain and age-appropriate generalized involutional changes. There is no evidence of acute vascular insults, space occupying lesions, hemorrhage, hydrocephalus, midline shift, or extra-axial collections. The calvarium is intact. IMPRESSION: 1. Chronic age related changes of the brain. 2. No acute intracranial abnormalities are visualized. SL: 16 02/21/2013 - - Read by: Perry Chu Date/time: 02/21/13 14:07 Electronically Signed by: Perry Chu MD 02/21/13 14:08 FINAL REPORT [facility] Vital Signs Vital Sign Value Date Comments Source Weight 137 05/12/2017 [facility] Height 66 05/12/2017 [facility] Heart Rate 70 05/12/2017 [facility] Diastolic (mm Hg) 70 05/12/2017 [facility] Systolic (mm Hg) 136 05/12/2017 [facility] Weight 121 07/14/2016 [facility] Height 66 07/14/2016 [facility] Temperature Oral (F) 98.4 F 07/14/2016 [facility] Diastolic (mm Hg) 70 07/14/2016 [facility] Systolic (mm Hg) 140 07/14/2016 [facility] Weight 123 06/01/2016 [facility] Height 66 06/01/2016 [facility] Heart Rate 68 06/01/2016 [facility] Diastolic (mm Hg) 68 06/01/2016 [facility] Systolic (mm Hg) 158 06/01/2016 [facility] Respitory Rate 18 03/21/2016 [facility] Systolic (mm Hg) 127 03/21/2016 [facility] Diastolic (mm Hg) 61 03/21/2016 [facility] Temperature Oral (F) 98.3 F 03/21/2016 [facility] Heart Rate 72 03/21/2016 [facility] Systolic (mm Hg) 149 03/21/2016 [facility] Diastolic (mm Hg) 68 03/21/2016 [facility] Respitory Rate 16 03/21/2016 [facility] Heart Rate 70 03/21/2016 [facility] Temperature Oral (F) 98.4 F 03/21/2016 [facility] Temperature Oral (F) 97.7 F 03/21/2016 [facility] Respitory Rate 18 03/21/2016 [facility] Systolic (mm Hg) 129 03/21/2016 [facility] Diastolic (mm Hg) 67 03/21/2016 [facility] Heart Rate 66 03/21/2016 [facility] Weight 58.182 03/20/2016 [facility] BMI Calculated 20.09 03/19/2016 [facility] Weight 58.182 03/19/2016 [facility] Height 170.18 cm 03/19/2016 [facility] BMI Calculated 20.64 03/19/2016 [facility] Weight 54.545 03/19/2016 [facility] Height 162.56 cm 03/19/2016 [facility] Weight 137 11/05/2015 [facility] Height 66 11/05/2015 [facility] Heart Rate 78 11/05/2015 [facility] Diastolic (mm Hg) 78 11/05/2015 [facility] Systolic (mm Hg) 150 11/05/2015 [facility] Weight 138 10/21/2015 [facility] [facility] Height 66 10/21/2015 [facility] Heart Rate 85 10/21/2015 [facility] Diastolic (mm Hg) 72 10/21/2015 [facility] Systolic (mm Hg) 128 10/21/2015 [facility] Weight 140 07/31/2015 [facility] Height 66 07/31/2015 [facility] Heart Rate 73 07/31/2015 [facility] Diastolic (mm Hg) 64 07/31/2015 [facility] Systolic (mm Hg) 128 07/31/2015 [facility] Weight 137 07/17/2015 [facility] Height 66 07/17/2015 [facility] Heart Rate 74 07/17/2015 [facility] Diastolic (mm Hg) 74 07/17/2015 [facility] Systolic (mm Hg) 128 07/17/2015 [facility] Weight 141 07/09/2015 [facility] Height 66 07/09/2015 [facility] Heart Rate 70 07/09/2015 [facility] Diastolic (mm Hg) 72 07/09/2015 [facility] Systolic (mm Hg) 148 07/09/2015 [facility] Weight 140 07/07/2015 [facility] Height 66 07/07/2015 [facility] Temperature Oral (F) 98.4 F 07/07/2015 [facility] Heart Rate 69 07/07/2015 [facility] Diastolic (mm Hg) 70 07/07/2015 [facility] Systolic (mm Hg) 130 07/07/2015 [facility] Weight 143 04/14/2015 [facility] Height 66 04/14/2015 [facility] Heart Rate 62 04/14/2015 [facility] Diastolic (mm Hg) 82 04/14/2015 [facility] Systolic (mm Hg) 140 04/14/2015 [facility] Weight 142 09/23/2014 [facility] Height 66 09/23/2014 [facility] Heart Rate 77 09/23/2014 [facility] Diastolic (mm Hg) 86 09/23/2014 [facility] Systolic (mm Hg) 164 09/23/2014 [facility] Weight 141 04/08/2014 [facility] Height 66 04/08/2014 [facility] Heart Rate 74 04/08/2014 [facility] Diastolic (mm Hg) 84 04/08/2014 [facility] Systolic (mm Hg) 162 04/08/2014 [facility] Weight 141 03/12/2014 [facility] Height 66 03/12/2014 [facility] Heart Rate 68 03/12/2014 [facility] Diastolic (mm Hg) 86 03/12/2014 [facility] Systolic (mm Hg) 162 03/12/2014 [facility] Weight 141 02/17/2014 [facility] Height 66 02/17/2014 [facility] Temperature Oral (F) 98.8 F 02/17/2014 [facility] Heart Rate 68 02/17/2014 [facility] Diastolic (mm Hg) 72 02/17/2014 [facility] Systolic (mm Hg) 140 02/17/2014 [facility] Weight 146 11/12/2013 [facility] Height 66 11/12/2013 [facility] Heart Rate 78 11/12/2013 [facility] Diastolic (mm Hg) 72 11/12/2013 [facility] Systolic (mm Hg) 132 11/12/2013 [facility] Weight 146 11/04/2013 [facility] Height 66 11/04/2013 [facility] Temperature Oral (F) 99.1 F 11/04/2013 [facility] Heart Rate 76 11/04/2013 [facility] Diastolic (mm Hg) 80 11/04/2013 [facility] Systolic (mm Hg) 152 11/04/2013 [facility] Weight 144 02/25/2013 [facility] Height 66 02/25/2013 [facility] Temperature Oral (F) 98.2 F 02/25/2013 [facility] Heart Rate 72 02/25/2013 [facility] Diastolic (mm Hg) 68 02/25/2013 [facility] Systolic (mm Hg) 126 02/25/2013 [facility] Diastolic (mm Hg) 78 02/23/2013 [facility] Systolic (mm Hg) 170 02/23/2013 [facility] Respitory Rate 18 02/23/2013 [facility] Heart Rate 63 02/23/2013 [facility] Temperature Oral (F) 98.2 F 02/23/2013 [facility] Rate 18 02/23/2013 [facility] Diastolic (mm Hg) 67 02/23/2013 [facility] Systolic (mm Hg) 153 02/23/2013 [facility] Heart Rate 67 02/23/2013 [facility] Temperature Oral (F) 97.9 F 02/23/2013 [facility] Temperature Oral (F) 97.9 F 02/23/2013 [facility] Heart Rate 74 02/23/2013 [facility] Diastolic (mm Hg) 62 02/23/2013 [facility] Systolic (mm Hg) 144 02/23/2013 [facility] Respitory Rate 18 02/23/2013 [facility] Weight 68.182 02/21/2013 [facility] Height 170.18 cm 02/21/2013 [facility] Weight 149 02/11/2013 [facility] Height 66 02/11/2013 [facility] Temperature Oral (F) 98.3 F 02/11/2013 [facility] Encounters Location Location Details Encounter Type Encounter Number Reason For Visit Attending Provider ADM Date DC Date Status Source [facility] R[facility] [id number] 02/11/2013 02/11/2013 [facility] [id number] 02/11/2013 02/11/2013 [facility] RASH [id number] 02/11/2013 02/11/2013 [facility] RASH [id number] 02/11/2013 02/11/2013 [facility] [id number] 02/11/2013 02/11/2013 [facility] RASH [id number] 02/11/2013 02/11/2013 [facility] [id number] 02/11/2013 02/11/2013 [facility] [id number] 02/11/2013 02/11/2013 [facility] R[facility] [id number] 02/11/2013 02/11/2013 [facility] RASH [id number] 02/11/2013 02/11/2013 [facility] [id number] 02/11/2013 02/11/2013 [facility] [id number] 02/11/2013 02/11/2013 [facility] [id number] 02/11/2013 02/11/2013 [facility] [id number] 02/11/2013 02/11/2013 [facility] [id number] 02/11/2013 02/11/2013 [facility] RASH [id number] 02/11/2013 02/11/2013 [facility] [id number] 02/11/2013 02/11/2013 [facility] R[facility] [id number] 02/11/2013 02/11/2013 [facility] [id number] 02/11/2013 02/11/2013 [facility] [id number] 02/11/2013 02/11/2013 [facility] [id number] 02/11/2013 02/11/2013 [facility] [id number] 02/11/2013 02/11/2013 [facility] [id number] 02/11/2013 02/11/2013 [facility] [id number] 02/11/2013 02/11/2013 [facility] [id number] 02/11/2013 02/11/2013 [facility] [id number] 02/11/2013 02/11/2013 [facility] [id number] 02/11/2013 02/11/2013 [facility] [id number] 02/11/2013 02/11/2013 [facility] [id number] 02/11/2013 02/11/2013 [facility] [id number] 02/11/2013 02/11/2013 [facility] [id number] 02/11/2013 02/11/2013 [facility] [id number] 02/11/2013 02/11/2013 [facility] [id number] 02/11/2013 02/11/2013 [facility] [id number] 02/11/2013 02/11/2013 [facility] Unknown [id number] 02/15/2013 02/15/2013 [facility] Unknown [id number] 02/15/2013 02/15/2013 [facility] Unknown [id number] 02/15/2013 02/15/2013 [facility] Unknown [id number] 02/15/2013 02/15/2013 [facility] Unknown [id number] 02/15/2013 02/15/2013 [facility] Unknown [id number] 02/15/2013 02/15/2013 [facility] Unknown [id number] 02/15/2013 02/15/2013 [facility] Unknown [id number] 02/15/2013 02/15/2013 [facility] Unknown [id number] 02/15/2013 02/15/2013 [facility] Unknown [id number] 02/15/2013 02/15/2013 [facility] Unknown [id number] 02/15/2013 02/15/2013 [facility] Unknown [id number] 02/15/2013 02/15/2013 [facility] Unknown [id number] 02/15/2013 02/15/2013 [facility] [id number] 02/15/2013 02/15/2013 [facility] Unknown [id number] 02/15/2013 02/15/2013 [facility] Unknown [id number] 02/15/2013 02/15/2013 [facility] Unknown [id number] 02/15/2013 02/15/2013 [facility] Unknown [id number] 02/15/2013 02/15/2013 [facility] Unknown [id number] 02/15/2013 02/15/2013 [facility] [id number] 02/15/2013 02/15/2013 [facility] Unknown [id number] 02/15/2013 02/15/2013 [facility] Unknown [id number] 02/15/2013 02/15/2013 [facility] Unknown [id number] 02/15/2013 02/15/2013 [facility] Unknown [id number] 02/15/2013 02/15/2013 [facility] Unknown [id number] 02/15/2013 02/15/2013 [facility] Unknown [id number] 02/15/2013 02/15/2013 [facility] Unknown [id number] 02/15/2013 02/15/2013 [facility] Unknown [id number] 02/15/2013 02/15/2013 [facility] Unknown [id number] 02/15/2013 02/15/2013 [facility] Unknown [id number] 02/15/2013 02/15/2013 [facility] Unknown [id number] 02/15/2013 02/15/2013 [facility] Unknown [id number] 02/15/2013 02/15/2013 [facility] Unknown [id number] 02/15/2013 02/15/2013 [facility] Unknown [id number] 02/15/2013 02/15/2013 [facility] depomedrol 120/Decadron 4mg IM [id number] 02/15/2013 02/15/2013 [facility] depomedrol 120/Decadron 4mg IM [id number] 02/15/2013 02/15/2013 [facility] depomedrol 120/Decadron 4mg IM [id number] 02/15/2013 02/15/2013 [facility] depomedrol 120/Decadron 4mg IM [id number] 02/15/2013 02/15/2013 [facility] depomedrol 120/Decadron 4mg IM [id number] 02/15/2013 02/15/2013 [facility] depomedrol 120/Decadron 4mg IM [id number] 02/15/2013 02/15/2013 [facility] depomedrol 120/Decadron 4mg IM [id number] 02/15/2013 02/15/2013 [facility] depomedrol 120/Decadron 4mg IM [id number] 02/15/2013 02/15/2013 [facility] depomedrol 120/Decadron 4mg IM [id number] 02/15/2013 02/15/2013 [facility] depomedrol 120/Decadron 4mg IM [id number] 02/15/2013 02/15/2013 [facility] depomedrol 120/Decadron 4mg IM [id number] 02/15/2013 02/15/2013 [facility] depomedrol 120/Decadron 4mg IM [id number] 02/15/2013 02/15/2013 [facility] depomedrol 120/Decadron 4mg IM [id number] 02/15/2013 02/15/2013 [facility] depomedrol 120/Decadron 4mg IM [id number] 02/15/2013 02/15/2013 [facility] depomedrol 120/Decadron 4mg IM [id number] 02/15/2013 02/15/2013 [facility] depomedrol 120/Decadron 4mg IM [id number] 02/15/2013 02/15/2013 [facility] depomedrol 120/Decadron 4mg IM [id number] 02/15/2013 02/15/2013 [facility] depomedrol 120/Decadron 4mg IM [id number] 02/15/2013 02/15/2013 [facility] depomedrol 120/Decadron 4mg IM [id number] 02/15/2013 02/15/2013 [facility] depomedrol 120/Decadron 4mg IM [id number] 02/15/2013 02/15/2013 [facility] depomedrol 120/Decadron 4mg IM [id number] 02/15/2013 02/15/2013 [facility] depomedrol 120/Decadron 4mg IM [id number] 02/15/2013 02/15/2013 [facility] depomedrol 120/Decadron 4mg IM [id number] 02/15/2013 02/15/2013 [facility] depomedrol 120/Decadron 4mg IM [id number] 02/15/2013 02/15/2013 [facility] depomedrol 120/Decadron 4mg IM [id number] 02/15/2013 02/15/2013 [facility] depomedrol 120/Decadron 4mg IM [id number] 02/15/2013 02/15/2013 [facility] depomedrol 120/Decadron 4mg IM [id number] 02/15/2013 02/15/2013 [facility] depomedrol 120/Decadron 4mg IM [id number] 02/15/2013 02/15/2013 [facility] depomedrol 120/Decadron 4mg IM [id number] 02/15/2013 02/15/2013 [facility] depomedrol 120/Decadron 4mg IM [id number] 02/15/2013 02/15/2013 [facility] depomedrol 120/Decadron 4mg IM [id number] 02/15/2013 02/15/2013 [facility] depomedrol 120/Decadron 4mg IM [id number] 02/15/2013 02/15/2013 [facility] [id number] GAGE 02/21/2013 02/23/2013 [facility] [id number] 02/25/2013 02/25/2013 [facility] [id number] 02/25/2013 02/25/2013 [facility] [id number] 02/25/2013 02/25/2013 [facility] [id number] 02/25/2013 02/25/2013 [facility] [id number] 02/25/2013 02/25/2013 [facility] [id number] 02/25/2013 02/25/2013 [facility] [id number] 02/25/2013 02/25/2013 [facility] Internal [facility] [id number] 02/25/2013 02/25/2013 [facility] [id number] 02/25/2013 02/25/2013 [facility] [id number] 02/25/2013 02/25/2013 [facility] [id number] 02/25/2013 02/25/2013 [facility] Internal [facility] [id number] 02/25/2013 02/25/2013 [facility] [id number] 02/25/2013 02/25/2013 [facility] [id number] 02/25/2013 02/25/2013 [facility] [id number] 02/25/2013 02/25/2013 [facility] [id number] 02/25/2013 02/25/2013 [facility] Internal [facility] [id number] 02/25/2013 02/25/2013 [facility] Internal [facility] [id number] 02/25/2013 02/25/2013 [facility] Internal [facility] [id number] 02/25/2013 02/25/2013 [facility] [id number] 02/25/2013 02/25/2013 [facility] Internal [facility] [id number] 02/25/2013 02/25/2013 [facility] [id number] 02/25/2013 02/25/2013 [facility] [id number] 02/25/2013 02/25/2013 [facility] [id number] 02/25/2013 02/25/2013 [facility] [id number] 02/25/2013 02/25/2013 [facility] [id number] 02/25/2013 02/25/2013 [facility] Internal [facility] [id number] 02/25/2013 02/25/2013 [facility] [id number] 02/25/2013 02/25/2013 [facility] [id number] 02/25/2013 02/25/2013 [facility] Unknown [id number] 03/11/2013 03/11/2013 [facility] Unknown [id number] 03/11/2013 03/11/2013 [facility] Unknown [id number] 03/11/2013 03/11/2013 [facility] Unknown [id number] 03/11/2013 03/11/2013 [facility] Unknown [id number] 03/11/2013 03/11/2013 [facility] Unknown [id number] 03/11/2013 03/11/2013 [facility] Unknown [id number] 03/11/2013 03/11/2013 [facility] Unknown [id number] 03/11/2013 03/11/2013 [facility] Unknown [id number] 03/11/2013 03/11/2013 [facility] Unknown [id number] 03/11/2013 03/11/2013 [facility] Unknown [id number] 03/11/2013 03/11/2013 [facility] Unknown [id number] 03/11/2013 03/11/2013 [facility] Unknown [id number] 03/11/2013 03/11/2013 [facility] Unknown [id number] 03/11/2013 03/11/2013 [facility] Unknown [id number] 03/11/2013 03/11/2013 [facility] Unknown [id number] 03/11/2013 03/11/2013 [facility] Unknown [id number] 03/11/2013 03/11/2013 [facility] Unknown [id number] 03/11/2013 03/11/2013 [facility] Unknown [id number] 03/11/2013 03/11/2013 [facility] Unknown [id number] 03/11/2013 03/11/2013 [facility] Unknown [id number] 03/11/2013 03/11/2013 [facility] Unknown [id number] 03/11/2013 03/11/2013 [facility] Unknown [id number] 03/11/2013 03/11/2013 [facility] Unknown [id number] 03/11/2013 03/11/2013 [facility] Unknown [id number] 03/11/2013 03/11/2013 [facility] Unknown [id number] 03/11/2013 03/11/2013 [facility] Unknown [id number] 03/11/2013 03/11/2013 [facility] Unknown [id number] 03/11/2013 03/11/2013 [facility] Unknown [id number] 03/11/2013 03/11/2013 [facility] Unknown [id number] 03/11/2013 03/11/2013 [facility] Unknown [id number] 03/11/2013 03/11/2013 [facility] Unknown [id number] 08/13/2013 08/13/2013 [facility] Unknown [id number] 08/13/2013 08/13/2013 [facility] Unknown [id number] 08/13/2013 08/13/2013 [facility] Unknown [id number] 08/13/2013 08/13/2013 [facility] Unknown [id number] 08/13/2013 08/13/2013 [facility] Unknown [id number] 08/13/2013 08/13/2013 [facility] Unknown [id number] 08/13/2013 08/13/2013 [facility] Unknown [id number] 08/13/2013 08/13/2013 [facility] Unknown [id number] 08/13/2013 08/13/2013 [facility] Unknown [id number] 08/13/2013 08/13/2013 [facility] Unknown [id number] 08/13/2013 08/13/2013 [facility] Unknown [id number] 08/13/2013 08/13/2013 [facility] Unknown [id number] 08/13/2013 08/13/2013 [facility] Unknown [id number] 08/13/2013 08/13/2013 [facility] Unknown [id number] 08/13/2013 08/13/2013 [facility] Unknown [id number] 08/13/2013 08/13/2013 [facility] Unknown [id number] 08/13/2013 08/13/2013 [facility] Unknown [id number] 08/13/2013 08/13/2013 [facility] Unknown [id number] 08/13/2013 08/13/2013 [facility] Unknown [id number] 08/13/2013 08/13/2013 [facility] Unknown [id number] 08/13/2013 08/13/2013 [facility] Unknown [id number] 08/13/2013 08/13/2013 [facility] Unknown [id number] 08/13/2013 08/13/2013 [facility] Unknown [id number] 08/13/2013 08/13/2013 [facility] Unknown [id number] 08/13/2013 08/13/2013 [facility] Unknown [id number] 08/13/2013 08/13/2013 [facility] Unknown [id number] 08/13/2013 08/13/2013 [facility] Unknown [id number] 08/13/2013 08/13/2013 [facility] Unknown [id number] 08/13/2013 08/13/2013 [facility] Unknown [id number] 08/13/2013 08/13/2013 [facility] MED REFILL/ SHOULDER PAIN [id number] 11/04/2013 11/04/2013 [facility] MED REFILL/ SHOULDER PAIN [id number] 11/04/2013 11/04/2013 [facility] MED REFILL/ SHOULDER PAIN [id number] 11/04/2013 11/04/2013 [facility] MED REFILL/ SHOULDER PAIN [id number] 11/04/2013 11/04/2013 [facility] MED REFILL/ SHOULDER PAIN [id number] 11/04/2013 11/04/2013 [facility] MED REFILL/ SHOULDER PAIN [id number] 11/04/2013 11/04/2013 [facility] MED REFILL/ SHOULDER PAIN [id number] 11/04/2013 11/04/2013 [facility] MED REFILL/ SHOULDER PAIN [id number] 11/04/2013 11/04/2013 [facility] MED REFILL/ SHOULDER PAIN [id number] 11/04/2013 11/04/2013 [facility] MED REFILL/ SHOULDER PAIN [id number] 11/04/2013 11/04/2013 [facility] MED REFILL/ SHOULDER PAIN [id number] 11/04/2013 11/04/2013 [facility] MED REFILL/ SHOULDER PAIN [id number] 11/04/2013 11/04/2013 [facility] MED REFILL/ SHOULDER PAIN [id number] 11/04/2013 11/04/2013 [facility] MED REFILL/ SHOULDER PAIN [id number] 11/04/2013 11/04/2013 [facility] MED REFILL/ SHOULDER PAIN [id number] 11/04/2013 11/04/2013 [facility] MED REFILL/ SHOULDER PAIN [id number] 11/04/2013 11/04/2013 [facility] MED REFILL/ SHOULDER PAIN [id number] 11/04/2013 11/04/2013 [facility] MED REFILL/ SHOULDER PAIN [id number] 11/04/2013 11/04/2013 [facility] MED REFILL/ SHOULDER PAIN [id number] 11/04/2013 11/04/2013 [facility] MED REFILL/ SHOULDER PAIN [id number] 11/04/2013 11/04/2013 [facility] MED REFILL/ SHOULDER PAIN [id number] 11/04/2013 11/04/2013 [facility] MED REFILL/ SHOULDER PAIN [id number] 11/04/2013 11/04/2013 [facility] MED REFILL/ SHOULDER PAIN [id number] 11/04/2013 11/04/2013 [facility] MED REFILL/ SHOULDER PAIN [id number] 11/04/2013 11/04/2013 [facility] MED REFILL/ SHOULDER PAIN [id number] 11/04/2013 11/04/2013 [facility] MED REFILL/ SHOULDER PAIN [id number] 11/04/2013 11/04/2013 [facility] MED REFILL/ SHOULDER PAIN [id number] 11/04/2013 11/04/2013 [facility] MED REFILL/ SHOULDER PAIN [id number] 11/04/2013 11/04/2013 [facility] MED REFILL/ SHOULDER PAIN [id number] 11/04/2013 11/04/2013 [facility] Eye swelling [id number] 11/12/2013 11/12/2013 [facility] Eye swelling [id number] 11/12/2013 11/12/2013 [facility] Eye swelling [id number] 11/12/2013 11/12/2013 [facility] Eye swelling [id number] 11/12/2013 11/12/2013 [facility] Eye swelling [id number] 11/12/2013 11/12/2013 [facility] Eye swelling [id number] 11/12/2013 11/12/2013 [facility] Eye swelling [id number] 11/12/2013 11/12/2013 [facility] Eye swelling [id number] 11/12/2013 11/12/2013 [facility] Eye swelling [id number] 11/12/2013 11/12/2013 [facility] Eye swelling [id number] 11/12/2013 11/12/2013 [facility] Eye swelling [id number] 11/12/2013 11/12/2013 [facility] Eye swelling [id number] 11/12/2013 11/12/2013 [facility] Eye swelling [id number] 11/12/2013 11/12/2013 [facility] Eye swelling [id number] 11/12/2013 11/12/2013 [facility] Eye swelling [id number] 11/12/2013 11/12/2013 [facility] Eye swelling [id number] 11/12/2013 11/12/2013 [facility] Eye swelling [id number] 11/12/2013 11/12/2013 [facility] Eye swelling [id number] 11/12/2013 11/12/2013 [facility] Eye swelling [id number] 11/12/2013 11/12/2013 [facility] Eye swelling [id number] 11/12/2013 11/12/2013 [facility] Eye swelling [id number] 11/12/2013 11/12/2013 [facility] Eye swelling [id number] 11/12/2013 11/12/2013 [facility] Eye swelling [id number] 11/12/2013 11/12/2013 [facility] Eye swelling [id number] 11/12/2013 11/12/2013 [facility] Eye swelling [id number] 11/12/2013 11/12/2013 [facility] Eye swelling [id number] 11/12/2013 11/12/2013 [facility] Eye swelling [id number] 11/12/2013 11/12/2013 [facility] Eye swelling [id number] 11/12/2013 11/12/2013 [facility] Eye swelling [id number] 11/12/2013 11/12/2013 [facility] 90daysRF [id number] 11/21/2013 11/21/2013 [facility] 90daysRF [id number] 11/21/2013 11/21/2013 [facility] 90daysRF [id number] 11/21/2013 11/21/2013 [facility] 90daysRF [id number] 11/21/2013 11/21/2013 [facility] 90daysRF [id number] 11/21/2013 11/21/2013 [facility] 90daysRF [id number] 11/21/2013 11/21/2013 [facility] 90daysRF [id number] 11/21/2013 11/21/2013 [facility] 90daysRF [id number] 11/21/2013 11/21/2013 [facility] 90daysRF [id number] 11/21/2013 11/21/2013 [facility] 90daysRF [id number] 11/21/2013 11/21/2013 [facility] 90daysRF [id number] 11/21/2013 11/21/2013 [facility] 90daysRF [id number] 11/21/2013 11/21/2013 [facility] 90daysRF [id number] 11/21/2013 11/21/2013 [facility] 90daysRF [id number] 11/21/2013 11/21/2013 [facility] 90daysRF [id number] 11/21/2013 11/21/2013 [facility] 90daysRF [id number] 11/21/2013 11/21/2013 [facility] 90daysRF [id number] 11/21/2013 11/21/2013 [facility] 90daysRF [id number] 11/21/2013 11/21/2013 [facility] 90daysRF [id number] 11/21/2013 11/21/2013 [facility] 90daysRF [id number] 11/21/2013 11/21/2013 [facility] 90daysRF [id number] 11/21/2013 11/21/2013 [facility] 90daysRF [id number] 11/21/2013 11/21/2013 [facility] 90daysRF [id number] 11/21/2013 11/21/2013 [facility] 90daysRF [id number] 11/21/2013 11/21/2013 [facility] 90daysRF [id number] 11/21/2013 11/21/2013 [facility] 90daysRF [id number] 11/21/2013 11/21/2013 [facility] 90daysRF [id number] 11/21/2013 11/21/2013 [facility] 90daysRF [id number] 11/21/2013 11/21/2013 [facility] 90daysRF [id number] 11/21/2013 11/21/2013 [facility] [id number] 02/17/2014 02/17/2014 [facility] [id number] 02/17/2014 02/17/2014 [facility] [id number] 02/17/2014 02/17/2014 [facility] [id number] 02/17/2014 02/17/2014 [facility] [id number] 02/17/2014 02/17/2014 [facility] [id number] 02/17/2014 02/17/2014 [facility] [id number] 02/17/2014 02/17/2014 [facility] [id number] 02/17/2014 02/17/2014 [facility] [id number] 02/17/2014 02/17/2014 [facility] [id number] 02/17/2014 02/17/2014 [facility] [id number] 02/17/2014 02/17/2014 [facility] [id number] 02/17/2014 02/17/2014 [facility] [id number] 02/17/2014 02/17/2014 [facility] [id number] 02/17/2014 02/17/2014 [facility] [id number] 02/17/2014 02/17/2014 [facility] [id number] 02/17/2014 02/17/2014 [facility] [id number] 02/17/2014 02/17/2014 [facility] [id number] 02/17/2014 02/17/2014 [facility] [id number] 02/17/2014 02/17/2014 [facility] [id number] 02/17/2014 02/17/2014 [facility] [id number] 02/17/2014 02/17/2014 [facility] [id number] 02/17/2014 02/17/2014 [facility] [id number] 02/17/2014 02/17/2014 [facility] [id number] 02/17/2014 02/17/2014 [facility] [id number] 02/17/2014 02/17/2014 [facility] US/THYROID [id number] 02/26/2014 02/26/2014 [facility] US/THYROID [id number] 02/26/2014 02/26/2014 [facility] US/THYROID [id number] 02/26/2014 02/26/2014 [facility] US/THYROID [id number] 02/26/2014 02/26/2014 [facility] US/THYROID [id number] 02/26/2014 02/26/2014 [facility] US/THYROID [id number] 02/26/2014 02/26/2014 [facility] US/THYROID [id number] 02/26/2014 02/26/2014 [facility] US/THYROID [id number] 02/26/2014 02/26/2014 [facility] US/THYROID [id number] 02/26/2014 02/26/2014 [facility] US/THYROID [id number] 02/26/2014 02/26/2014 [facility] US/THYROID [id number] 02/26/2014 02/26/2014 [facility] US/THYROID [id number] 02/26/2014 02/26/2014 [facility] US/THYROID [id number] 02/26/2014 02/26/2014 [facility] US/THYROID [id number] 02/26/2014 02/26/2014 [facility] US/THYROID [id number] 02/26/2014 02/26/2014 [facility] US/THYROID [id number] 02/26/2014 02/26/2014 [facility] US/THYROID [id number] 02/26/2014 02/26/2014 [facility] US/THYROID [id number] 02/26/2014 02/26/2014 [facility] US/THYROID [id number] 02/26/2014 02/26/2014 [facility] US/THYROID [id number] 02/26/2014 02/26/2014 [facility] US/THYROID [id number] 02/26/2014 02/26/2014 [facility] US/THYROID [id number] 02/26/2014 02/26/2014 [facility] US/THYROID [id number] 02/26/2014 02/26/2014 [facility] US/THYROID [id number] 02/26/2014 02/26/2014 [facility] US/THYROID [id number] 02/26/2014 02/26/2014 [facility] 2 week follow up /ECHO RESULTS [id number] 03/12/2014 03/12/2014 [facility] 2 week follow up /ECHO RESULTS [id number] 03/12/2014 03/12/2014 [facility] 2 week follow up /ECHO RESULTS [id number] 03/12/2014 03/12/2014 [facility] 2 week follow up /ECHO RESULTS [id number] 03/12/2014 03/12/2014 [facility] 2 week follow up /ECHO RESULTS [id number] 03/12/2014 03/12/2014 [facility] 2 week follow up /ECHO RESULTS [id number] 03/12/2014 03/12/2014 [facility] 2 week follow up /ECHO RESULTS [id number] 03/12/2014 03/12/2014 [facility] 2 week follow up /ECHO RESULTS [id number] 03/12/2014 03/12/2014 [facility] 2 week follow up /ECHO RESULTS [id number] 03/12/2014 03/12/2014 [facility] 2 week follow up /ECHO RESULTS [id number] 03/12/2014 03/12/2014 [facility] 2 week follow up /ECHO RESULTS [id number] 03/12/2014 03/12/2014 [facility] 2 week follow up /ECHO RESULTS [id number] 03/12/2014 03/12/2014 [facility] 2 week follow up /ECHO RESULTS [id number] 03/12/2014 03/12/2014 [facility] 2 week follow up /ECHO RESULTS [id number] 03/12/2014 03/12/2014 [facility] 2 week follow up /ECHO RESULTS [id number] 03/12/2014 03/12/2014 [facility] 2 week follow up /ECHO RESULTS [id number] 03/12/2014 03/12/2014 [facility] 2 week follow up /ECHO RESULTS [id number] 03/12/2014 03/12/2014 [facility] /ECHO RESULTS [id number] 03/12/2014 03/12/2014 [facility] follow up /ECHO RESULTS [id number] 03/12/2014 03/12/2014 [facility] 2 week follow up /ECHO RESULTS [id number] 03/12/2014 03/12/2014 [facility] 2 week follow up /ECHO RESULTS [id number] 03/12/2014 03/12/2014 [facility] 2 week follow up /ECHO RESULTS [id number] 03/12/2014 03/12/2014 [facility] 2 week follow up /ECHO RESULTS [id number] 03/12/2014 03/12/2014 [facility] 2 week follow up /ECHO RESULTS [id number] 03/12/2014 03/12/2014 [facility] 2 week follow up /ECHO RESULTS [id number] 03/12/2014 03/12/2014 [facility] Needs call back from Medical Staff [id number] 03/17/2014 03/17/2014 [facility] Needs call back from Medical Staff [id number] 03/17/2014 03/17/2014 [facility] Needs call back from Medical Staff [id number] 03/17/2014 03/17/2014 [facility] Needs call back from Medical Staff [id number] 03/17/2014 03/17/2014 [facility] Needs call back from Medical Staff [id number] 03/17/2014 03/17/2014 [facility] Needs call back from Medical Staff [id number] 03/17/2014 03/17/2014 [facility] Needs call back from Medical Staff [id number] 03/17/2014 03/17/2014 [facility] Needs call back from Medical Staff [id number] 03/17/2014 03/17/2014 [facility] Needs call back from Medical Staff [id number] 03/17/2014 03/17/2014 [facility] Needs call back from Medical Staff [id number] 03/17/2014 03/17/2014 [facility] Needs call back from Medical Staff [id number] 03/17/2014 03/17/2014 [facility] Needs call back from Medical Staff [id number] 03/17/2014 03/17/2014 [facility] Needs call back from Medical Staff [id number] 03/17/2014 03/17/2014 [facility] Needs call back from Medical Staff [id number] 03/17/2014 03/17/2014 [facility] Needs call back from Medical Staff [id number] 03/17/2014 03/17/2014 [facility] Needs call back from Medical Staff [id number] 03/17/2014 03/17/2014 [facility] Needs call back from Medical Staff [id number] 03/17/2014 03/17/2014 [facility] Needs call back from Medical Staff [id number] 03/17/2014 03/17/2014 [facility] Needs call back from Medical Staff [id number] 03/17/2014 03/17/2014 [facility] Needs call back from Medical Staff [id number] 03/17/2014 03/17/2014 [facility] Needs call back from Medical Staff [id number] 03/17/2014 03/17/2014 [facility] Needs call back from Medical Staff [id number] 03/17/2014 03/17/2014 [facility] Needs call back from Medical Staff [id number] 03/17/2014 03/17/2014 [facility] Needs call back from Medical Staff [id number] 03/17/2014 03/17/2014 [facility] Needs call back from Medical Staff [id number] 03/17/2014 03/17/2014 [facility] Outpatient [id number] Katarzyna Gage 03/26/2014 03/27/2014 [facility] RESULTS [id number] 04/08/2014 04/08/2014 [facility] RESULTS [id number] 04/08/2014 04/08/2014 [facility] RESULTS [id number] 04/08/2014 04/08/2014 [facility] RESULTS [id number] 04/08/2014 04/08/2014 [facility] RESULTS [id number] 04/08/2014 04/08/2014 [facility] RESULTS [id number] 04/08/2014 04/08/2014 [facility] RESULTS [id number] 04/08/2014 04/08/2014 [facility] RESULTS [id number] 04/08/2014 04/08/2014 [facility] RESULTS [id number] 04/08/2014 04/08/2014 [facility] RESULTS [id number] 04/08/2014 04/08/2014 [facility] RESULTS [id number] 04/08/2014 04/08/2014 [facility] RESULTS [id number] 04/08/2014 04/08/2014 [facility] RESULTS [id number] 04/08/2014 04/08/2014 [facility] RESULTS [id number] 04/08/2014 04/08/2014 [facility] RESULTS [id number] 04/08/2014 04/08/2014 [facility] RESULTS [id number] 04/08/2014 04/08/2014 [facility] RESULTS [id number] 04/08/2014 04/08/2014 [facility] RESULTS [id number] 04/08/2014 04/08/2014 [facility] RESULTS [id number] 04/08/2014 04/08/2014 [facility] RESULTS [id number] 04/08/2014 04/08/2014 [facility] RESULTS [id number] 04/08/2014 04/08/2014 [facility] RESULTS [id number] 04/08/2014 04/08/2014 [facility] RESULTS [id number] 04/08/2014 04/08/2014 [facility] RESULTS [id number] 04/08/2014 04/08/2014 [facility] RESULTS [id number] 04/08/2014 04/08/2014 [facility] Refill [id number] 04/23/2014 04/23/2014 [facility] Refill [id number] 04/23/2014 04/23/2014 [facility] Refill [id number] 04/23/2014 04/23/2014 [facility] Refill [id number] 04/23/2014 04/23/2014 [facility] Refill [id number] 04/23/2014 04/23/2014 [facility] Refill [id number] 04/23/2014 04/23/2014 [facility] Refill [id number] 04/23/2014 04/23/2014 [facility] Refill [id number] 04/23/2014 04/23/2014 [facility] Refill [id number] 04/23/2014 04/23/2014 [facility] Refill [id number] 04/23/2014 04/23/2014 [facility] Refill [id number] 04/23/2014 04/23/2014 [facility] Refill [id number] 04/23/2014 04/23/2014 [facility] Refill [id number] 04/23/2014 04/23/2014 [facility] Refill [id number] 04/23/2014 04/23/2014 [facility] Refill [id number] 04/23/2014 04/23/2014 [facility] Refill [id number] 04/23/2014 04/23/2014 [facility] Refill [id number] 04/23/2014 04/23/2014 [facility] Refill [id number] 04/23/2014 04/23/2014 [facility] Refill [id number] 04/23/2014 04/23/2014 [facility] Refill [id number] 04/23/2014 04/23/2014 [facility] Unknown [id number] 07/23/2014 07/23/2014 [facility] Unknown [id number] 07/23/2014 07/23/2014 [facility] Unknown [id number] 07/23/2014 07/23/2014 [facility] Unknown [id number] 07/23/2014 07/23/2014 [facility] Unknown [id number] 07/23/2014 07/23/2014 [facility] Unknown [id number] 07/23/2014 07/23/2014 [facility] Unknown [id number] 07/23/2014 07/23/2014 [facility] Unknown [id number] 07/23/2014 07/23/2014 [facility] Unknown [id number] 07/23/2014 07/23/2014 [facility] Unknown [id number] 07/23/2014 07/23/2014 [facility] Unknown [id number] 07/23/2014 07/23/2014 [facility] Unknown [id number] 07/23/2014 07/23/2014 [facility] Unknown [id number] 07/23/2014 07/23/2014 [facility] Unknown [id number] 07/23/2014 07/23/2014 [facility] Unknown [id number] 07/23/2014 07/23/2014 [facility] Unknown [id number] 07/23/2014 07/23/2014 [facility] Unknown [id number] 07/23/2014 07/23/2014 [facility] Unknown [id number] 07/23/2014 07/23/2014 [facility] Unknown [id number] 07/23/2014 07/23/2014 [facility] Unknown [id number] 08/08/2014 08/08/2014 [facility] Unknown [id number] 08/08/2014 08/08/2014 [facility] Unknown [id number] 08/08/2014 08/08/2014 [facility] Unknown [id number] 08/08/2014 08/08/2014 [facility] Unknown [id number] 08/08/2014 08/08/2014 [facility] Unknown [id number] 08/08/2014 08/08/2014 [facility] Unknown [id number] 08/08/2014 08/08/2014 [facility] Unknown [id number] 08/08/2014 08/08/2014 [facility] Unknown [id number] 08/08/2014 08/08/2014 [facility] Unknown [id number] 08/08/2014 08/08/2014 [facility] Unknown [id number] 08/08/2014 08/08/2014 [facility] Unknown [id number] 08/08/2014 08/08/2014 [facility] Unknown [id number] 08/08/2014 08/08/2014 [facility] Unknown [id number] 08/08/2014 08/08/2014 [facility] Unknown [id number] 08/08/2014 08/08/2014 [facility] Unknown [id number] 08/08/2014 08/08/2014 [facility] Unknown [id number] 08/08/2014 08/08/2014 [facility] Unknown [id number] 08/08/2014 08/08/2014 [facility] Unknown [id number] 08/08/2014 08/08/2014 [facility] Unknown [id number] 08/26/2014 08/26/2014 [facility] Unknown [id number] 08/26/2014 08/26/2014 [facility] Unknown [id number] 08/26/2014 08/26/2014 [facility] Unknown [id number] 08/26/2014 08/26/2014 [facility] Unknown [id number] 08/26/2014 08/26/2014 [facility] Unknown [id number] 08/26/2014 08/26/2014 [facility] Unknown [id number] 08/26/2014 08/26/2014 [facility] Unknown [id number] 08/26/2014 08/26/2014 [facility] Unknown [id number] 08/26/2014 08/26/2014 [facility] Unknown [id number] 08/26/2014 08/26/2014 [facility] Unknown [id number] 08/26/2014 08/26/2014 [facility] Unknown [id number] 08/26/2014 08/26/2014 [facility] Unknown [id number] 08/26/2014 08/26/2014 [facility] Unknown [id number] 08/26/2014 08/26/2014 [facility] Unknown [id number] 08/26/2014 08/26/2014 [facility] Unknown [id number] 08/26/2014 08/26/2014 [facility] Unknown [id number] 08/26/2014 08/26/2014 [facility] Unknown [id number] 08/26/2014 08/26/2014 [facility] Unknown [id number] 08/26/2014 08/26/2014 [facility] question [id number] 08/27/2014 08/27/2014 [facility] question [id number] 08/27/2014 08/27/2014 [facility] question [id number] 08/27/2014 08/27/2014 [facility] question [id number] 08/27/2014 08/27/2014 [facility] question [id number] 08/27/2014 08/27/2014 [facility] question [id number] 08/27/2014 08/27/2014 [facility] question [id number] 08/27/2014 08/27/2014 [facility] question [id number] 08/27/2014 08/27/2014 [facility] question [id number] 08/27/2014 08/27/2014 [facility] question [id number] 08/27/2014 08/27/2014 [facility] question [id number] 08/27/2014 08/27/2014 [facility] question [id number] 08/27/2014 08/27/2014 [facility] question [id number] 08/27/2014 08/27/2014 [facility] question [id number] 08/27/2014 08/27/2014 [facility] question [id number] 08/27/2014 08/27/2014 [facility] question [id number] 08/27/2014 08/27/2014 [facility] question [id number] 08/27/2014 08/27/2014 [facility] question [id number] 08/27/2014 08/27/2014 [facility] question [id number] 08/27/2014 08/27/2014 [facility] Unknown [id number] 09/02/2014 09/02/2014 [facility] Unknown [id number] 09/02/2014 09/02/2014 [facility] Unknown [id number] 09/02/2014 09/02/2014 [facility] Unknown [id number] 09/02/2014 09/02/2014 [facility] Unknown [id number] 09/02/2014 09/02/2014 [facility] Unknown [id number] 09/02/2014 09/02/2014 [facility] Unknown [id number] 09/02/2014 09/02/2014 [facility] Unknown [id number] 09/02/2014 09/02/2014 [facility] Unknown [id number] 09/02/2014 09/02/2014 [facility] Unknown [id number] 09/02/2014 09/02/2014 [facility] Unknown [id number] 09/02/2014 09/02/2014 [facility] Unknown [id number] 09/02/2014 09/02/2014 [facility] Unknown [id number] 09/02/2014 09/02/2014 [facility] Unknown [id number] 09/02/2014 09/02/2014 [facility] Unknown [id number] 09/02/2014 09/02/2014 [facility] Unknown [id number] 09/02/2014 09/02/2014 [facility] Unknown [id number] 09/02/2014 09/02/2014 [facility] Unknown [id number] 09/02/2014 09/02/2014 [facility] Unknown [id number] 09/02/2014 09/02/2014 [facility] [facility] 4 week follow up [id number] 09/23/2014 09/23/2014 [facility] 4 week follow up [id number] 09/23/2014 09/23/2014 [facility] 4 week follow up [id number] 09/23/2014 09/23/2014 [facility] 4 week follow up [id number] 09/23/2014 09/23/2014 [facility] 4 week follow up [id number] 09/23/2014 09/23/2014 [facility] 4 week follow up [id number] 09/23/2014 09/23/2014 [facility] 4 week follow up [id number] 09/23/2014 09/23/2014 [facility] 4 week follow up [id number] 09/23/2014 09/23/2014 [facility] 4 week follow up [id number] 09/23/2014 09/23/2014 [facility] 4 week follow up [id number] 09/23/2014 09/23/2014 [facility] 4 week follow up [id number] 09/23/2014 09/23/2014 [facility] 4 week follow up [id number] 09/23/2014 09/23/2014 [facility] 4 week follow up [id number] 09/23/2014 09/23/2014 [facility] 4 week follow up [id number] 09/23/2014 09/23/2014 [facility] 4 week follow up [id number] 09/23/2014 09/23/2014 [facility] 4 week follow up [id number] 09/23/2014 09/23/2014 [facility] 4 week follow up [id number] 09/23/2014 09/23/2014 [facility] 4 week follow up [id number] 09/23/2014 09/23/2014 [facility] physical exam [id number] 04/14/2015 04/14/2015 [facility] physical exam [id number] 04/14/2015 04/14/2015 [facility] physical exam [id number] 04/14/2015 04/14/2015 [facility] physical exam [id number] 04/14/2015 04/14/2015 [facility] physical exam [id number] 04/14/2015 04/14/2015 [facility] physical exam [id number] 04/14/2015 04/14/2015 [facility] physical exam [id number] 04/14/2015 04/14/2015 [facility] physical exam [id number] 04/14/2015 04/14/2015 [facility] physical exam [id number] 04/14/2015 04/14/2015 [facility] physical exam [id number] 04/14/2015 04/14/2015 [facility] physical exam [id number] 04/14/2015 04/14/2015 [facility] physical exam [id number] 04/14/2015 04/14/2015 [facility] physical exam [id number] 04/14/2015 04/14/2015 [facility] physical exam [id number] 04/14/2015 04/14/2015 [facility] physical exam [id number] 04/14/2015 04/14/2015 [facility] physical exam [id number] 04/14/2015 04/14/2015 [facility] physical exam [id number] 04/14/2015 04/14/2015 [facility] Unknown [id number] 04/21/2015 04/21/2015 [facility] Unknown [id number] 04/21/2015 04/21/2015 [facility] Unknown [id number] 04/21/2015 04/21/2015 [facility] Unknown [id number] 04/21/2015 04/21/2015 [facility] Unknown [id number] 04/21/2015 04/21/2015 [facility] Unknown [id number] 04/21/2015 04/21/2015 [facility] Unknown [id number] 04/21/2015 04/21/2015 [facility] Unknown [id number] 04/21/2015 04/21/2015 [facility] Unknown [id number] 04/21/2015 04/21/2015 [facility] Unknown [id number] 04/21/2015 04/21/2015 [facility] Unknown [id number] 04/21/2015 04/21/2015 [facility] Unknown [id number] 04/21/2015 04/21/2015 [facility] Unknown [id number] 04/21/2015 04/21/2015 [facility] Unknown [id number] 04/21/2015 04/21/2015 [facility] Unknown [id number] 04/21/2015 04/21/2015 [facility] Unknown [id number] 04/21/2015 04/21/2015 [facility] Refill [id number] 05/04/2015 05/04/2015 [facility] Refill [id number] 05/04/2015 05/04/2015 [facility] Refill [id number] 05/04/2015 05/04/2015 [facility] Refill [id number] 05/04/2015 05/04/2015 [facility] Refill [id number] 05/04/2015 05/04/2015 [facility] Refill [id number] 05/04/2015 05/04/2015 [facility] Refill [id number] 05/04/2015 05/04/2015 [facility] Refill [id number] 05/04/2015 05/04/2015 [facility] Refill [id number] 05/04/2015 05/04/2015 [facility] Refill [id number] 05/04/2015 05/04/2015 [facility] Refill [id number] 05/04/2015 05/04/2015 [facility] Refill [id number] 05/04/2015 05/04/2015 [facility] Refill [id number] 05/04/2015 05/04/2015 [facility] Refill [id number] 05/04/2015 05/04/2015 [facility] Refill [id number] 05/04/2015 05/04/2015 [facility] stomach virus? chills [id number] 07/07/2015 07/07/2015 [facility] stomach virus? chills [id number] 07/07/2015 07/07/2015 [facility] stomach virus? marcelino [id number] 07/07/2015 07/07/2015 [facility] stomach virus? marcelino [id number] 07/07/2015 07/07/2015 [facility] stomach virus? marcelino [id number] 07/07/2015 07/07/2015 [facility] stomach virus? marcelino [id number] 07/07/2015 07/07/2015 [facility] stomach virus? marcelino [id number] 07/07/2015 07/07/2015 [facility] stomach virus? marcelino [id number] 07/07/2015 07/07/2015 [facility] stomach virus? marcelino [id number] 07/07/2015 07/07/2015 [facility] Unknown [id number] 07/07/2015 07/07/2015 [facility] Unknown [id number] 07/07/2015 07/07/2015 [facility] Unknown [id number] 07/07/2015 07/07/2015 [facility] Unknown [id number] 07/07/2015 07/07/2015 [facility] Unknown [id number] 07/07/2015 07/07/2015 [facility] Unknown [id number] 07/07/2015 07/07/2015 [facility] Unknown [id number] 07/07/2015 07/07/2015 [facility] Unknown [id number] 07/07/2015 07/07/2015 [facility] Unknown [id number] 07/07/2015 07/07/2015 [facility] stomach virus? marcelino [id number] 07/07/2015 07/07/2015 [facility] stomach virus? marcelino [id number] 07/07/2015 07/07/2015 [facility] stomach virus? marcelino [id number] 07/07/2015 07/07/2015 [facility] stomach virus? marcelino [id number] 07/07/2015 07/07/2015 [facility] Unknown [id number] 07/07/2015 07/07/2015 [facility] Unknown [id number] 07/07/2015 07/07/2015 [facility] Unknown [id number] 07/07/2015 07/07/2015 [facility] Unknown [id number] 07/07/2015 07/07/2015 [facility] Unknown [id number] 07/07/2015 07/07/2015 [facility] follow up [id number] 07/09/2015 07/09/2015 [facility] follow up [id number] 07/09/2015 07/09/2015 [facility] follow up [id number] 07/09/2015 07/09/2015 [facility] follow up [id number] 07/09/2015 07/09/2015 [facility] follow up [id number] 07/09/2015 07/09/2015 [facility] follow up [id number] 07/09/2015 07/09/2015 [facility] follow up [id number] 07/09/2015 07/09/2015 [facility] follow up [id number] 07/09/2015 07/09/2015 [facility] follow up [id number] 07/09/2015 07/09/2015 [facility] follow up [id number] 07/09/2015 07/09/2015 [facility] follow up [id number] 07/09/2015 07/09/2015 [facility] follow up [id number] 07/09/2015 07/09/2015 [facility] Unknown [id number] 07/16/2015 07/16/2015 [facility] Unknown [id number] 07/16/2015 07/16/2015 [facility] Unknown [id number] 07/16/2015 07/16/2015 [facility] Unknown [id number] 07/16/2015 07/16/2015 [facility] Unknown [id number] 07/16/2015 07/16/2015 [facility] Unknown [id number] 07/16/2015 07/16/2015 [facility] Unknown [id number] 07/16/2015 07/16/2015 [facility] Unknown [id number] 07/16/2015 07/16/2015 [facility] Unknown [id number] 07/16/2015 07/16/2015 [facility] Unknown [id number] 07/16/2015 07/16/2015 [facility] Unknown [id number] 07/16/2015 07/16/2015 [facility] 2 week follow up [id number] 07/17/2015 07/17/2015 [facility] 2 week follow up [id number] 07/17/2015 07/17/2015 [facility] 2 week follow up [id number] 07/17/2015 07/17/2015 [facility] 2 week follow up [id number] 07/17/2015 07/17/2015 [facility] 2 week follow up [id number] 07/17/2015 07/17/2015 [facility] 2 week follow up [id number] 07/17/2015 07/17/2015 [facility] 2 week follow up [id number] 07/17/2015 07/17/2015 [facility] 2 week follow up [id number] 07/17/2015 07/17/2015 [facility] 2 week follow up [id number] 07/17/2015 07/17/2015 [facility] 2 week follow up [id number] 07/17/2015 07/17/2015 [facility] still has UTI [id number] 07/28/2015 07/28/2015 [facility] still has UTI [id number] 07/28/2015 07/28/2015 [facility] still has UTI [id number] 07/28/2015 07/28/2015 [facility] still has UTI [id number] 07/28/2015 07/28/2015 [facility] still has UTI [id number] 07/28/2015 07/28/2015 [facility] still has UTI [id number] 07/28/2015 07/28/2015 [facility] still has UTI [id number] 07/28/2015 07/28/2015 [facility] still has UTI [id number] 07/28/2015 07/28/2015 [facility] still has UTI [id number] 07/28/2015 07/28/2015 [facility] UTI and Pneumonia [id number] 07/31/2015 07/31/2015 [facility] UTI and Pneumonia [id number] 07/31/2015 07/31/2015 [facility] UTI and Pneumonia [id number] 07/31/2015 07/31/2015 [facility] UTI and Pneumonia [id number] 07/31/2015 07/31/2015 [facility] UTI and Pneumonia [id number] 07/31/2015 07/31/2015 [facility] UTI and Pneumonia [id number] 07/31/2015 07/31/2015 [facility] UTI and Pneumonia [id number] 07/31/2015 07/31/2015 [facility] UTI and Pneumonia [id number] 07/31/2015 07/31/2015 [facility] Unknown [id number] 09/23/2015 09/23/2015 [facility] Unknown [id number] 09/23/2015 09/23/2015 [facility] Unknown [id number] 09/23/2015 09/23/2015 [facility] Unknown [id number] 09/23/2015 09/23/2015 [facility] Unknown [id number] 09/23/2015 09/23/2015 [facility] Unknown [id number] 09/23/2015 09/23/2015 [facility] Unknown [id number] 09/23/2015 09/23/2015 [facility] Unknown [id number] 10/07/2015 10/07/2015 [facility] Unknown [id number] 10/07/2015 10/07/2015 [facility] Unknown [id number] 10/07/2015 10/07/2015 [facility] Unknown [id number] 10/07/2015 10/07/2015 [facility] Unknown [id number] 10/07/2015 10/07/2015 [facility] Unknown [id number] 10/07/2015 10/07/2015 [facility] 3 MONTH FOLLOW UP [id number] 10/21/2015 10/21/2015 [facility] 3 MONTH FOLLOW UP [id number] 10/21/2015 10/21/2015 [facility] 3 MONTH FOLLOW UP [id number] 10/21/2015 10/21/2015 [facility] 3 MONTH FOLLOW UP [id number] 10/21/2015 10/21/2015 [facility] 3 MONTH FOLLOW UP [id number] 10/21/2015 10/21/2015 [facility] 2 week follow up [id number] 11/05/2015 11/05/2015 [facility] 2 week follow up [id number] 11/05/2015 11/05/2015 [facility] 2 week follow up [id number] 11/05/2015 11/05/2015 [facility] 2 week follow up [id number] 11/05/2015 11/05/2015 [facility] Refill [id number] 03/09/2016 03/09/2016 [facility] Refill [id number] 03/09/2016 03/09/2016 [facility] Refill [id number] 03/09/2016 03/09/2016 [facility] Inpatient [id number] Karieo Kaminiourbill 03/19/2016 03/21/2016 [facility] physical exam [id number] 06/01/2016 06/01/2016 [facility] Unknown [id number] 06/07/2016 06/07/2016 [facility] Unknown [id number] 06/07/2016 06/07/2016 [facility] Procedures Procedure Code Date Perfomer Comments Source Emergency department visit for the evaluation and management of a patient, which requires these 3 nicholson components within the constraints imposed by the urgency of the patient's clinical condition and/or mental status: A comprehensive history; A comprehensi 24908 02/21/2013 [facility] Cataract surgery [id number] [facility] Cholecystectomy [id number] [facility] Colonoscopy [id number] [facility]
--- OUTSIDE RECORDS SUMMARY | 2018-07-14 20:20 | XMS REPORT ---
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 Problem Hyperlipidemia E78.5 Active Problem Other pruritus L29.8 Active Problem Anxiety F41.9 Active Problem GERD (gastroesophageal reflux disease) K21.9 Active Problem Vertigo R42 Active Problem Schatzki's ring K22.2 Active Problem Diverticulosis of intestine without bleeding, unspecified intestinal tract location K57.90 Active Problem Generalized anxiety disorder F41.1 Active Problem Benign essential hypertension I10 Active Problem Hiatal hernia K44.9 Active Problem Benign essential tremor G25.0 Active Problem Dysphagia, unspecified type R13.10 Active Problem Goiter E04.9 Active Medications No Known Medications Results No Known Results Summary Purpose eClinicalWorks Submission
--- OUTSIDE RECORDS SUMMARY | 2018-07-14 20:20 | XMS REPORT ---
Author Author Nita Ohara [facility] eClinicalWorks Address Unknown Phone Unavailable Care Team Providers Care Well Shooter Name Role Phone Nita Ohara CP Unavailable [...] bleeding, unspecified intestinal tract location K57.90 Active Assessment Generalized anxiety disorder F41.1 Active Problem Generalized anxiety disorder F41.1 Active Problem Benign essential hypertension I10 Active Problem Hiatal hernia K44.9 Active Problem Benign essential tremor G25.0 Active Problem Dysphagia, unspecified type R13.10 Active Problem Goiter E04.9 Active Medications Medication Code System Code Instructions Start Date End Date Status Dosage Alprazolam [facility] [address]-47 0.25 MG Orally once a day prn September 13, 2012 Active 1 tablet Results No Known Results Summary Purpose eClinicalWorks Submission
--- OUTSIDE RECORDS SUMMARY | 2018-07-14 20:20 | XMS REPORT ---
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 Problem Gastroesophageal reflux disease, esophagitis presence not specified K21.9 Active Problem Hyperlipidemia E78.5 Active Problem Primary insomnia F51.01 Active Problem Anxiety F41.9 Active Problem Vertigo R42 Active Problem GERD (gastroesophageal reflux disease) K21.9 Active Problem Insomnia G47.00 Active Problem Dysphagia, unspecified type R13.10 Active Problem Diverticulosis of intestine without bleeding, unspecified intestinal tract location K57.90 Active Problem Schatzki's ring K22.2 Active Problem Benign essential hypertension I10 Active Problem Goiter E04.9 Active Problem Hiatal hernia K44.9 Active Problem Benign essential tremor G25.0 Active Problem Generalized anxiety disorder F41.1 Active Problem Nodular thyroid disease E04.1 Active Medications Medication Code System Code Instructions Start Date End Date Status Dosage Atorvastatin Calcium [facility] 75423895071 10 mg Orally Once a day Active 1 tablet Results No Known Results Summary Purpose eClinicalWorks Submission
--- OUTSIDE RECORDS SUMMARY | 2018-07-14 20:20 | XMS REPORT ---
Author Author Marilia Macias [facility] eClinicalWorks Address Unknown Phone Unavailable Care Team Providers Care Hospital Medical Assistant Name Role Phone Marilia Macias Unavailable Encounters Encounter Location Date Unknown [facility] Feb 15, 2013 [facility] Feb 11, 2013 Problems Problem Type Condition ICD-9 Code Onset Dates Condition Status Problem HTN (hypertension) 401.9 Active Problem GERD (gastroesophageal reflux disease) 530.81 Active Problem 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 Problem Insomnia (Nonorganic sleep disorder, 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 Problem Anxiety 300.00 Active Problem Generalized anxiety disorder 300.02 Active Social History Social History Element Qualifiers Date Reported Where or with whom do you live ? . Spouse Feb 11, 2013 children . 2 Feb 11, 2013 Tobacco Use: . Are you a: never smoker Feb 11, 2013 Use of recreational / street drugs? . Answer: No Feb 11, 2013 Marital Status: . Feb 11, 2013 Do you drink alcohol? . Status: Yes, Type: Rarely Feb 11, 2013 Occupation: . Retired Feb 11, 2013 Vital Signs Date/Time: Feb 11, 2013 Weight 149 lbs Height 66 inches Temperature 98.3 F Summary Purpose eClinicalWorks Submission
--- OUTSIDE RECORDS SUMMARY | 2018-07-14 20:20 | XMS REPORT ---
Author Author Katarzyna Hodgson [facility] eClinicalWorks Address Unknown Phone Unavailable Care Team Providers Care Hawk Missile System Crewmember Name Role Phone Katarzyna oHdgson CP Unavailable Allergies, Adverse Reactions, Alerts Substance Reaction Event Type Morphine Sulfate Info Not Available Drug Allergy Aspir-81 Info Not Available Drug Allergy Encounters Encounter Location Date Unknown [facility] Mar 11, 2013 Unknown [facility] August 13, 2013 [id number] [facility] November 21, 2013 Eye swelling [facility] November 12, 2013 Unknown [facility] Feb 15, 2013 RASH [facility] Feb 11, 2013 depomedrol 120/Decadron 4mg IM [facility] Feb 15, 2013 MED REFILL/ SHOULDER PAIN [facility] November 04, 2013 HOSPITAL [facility] Feb 25, 2013 Problems Problem Type Condition ICD-9 Code Onset Dates Condition Status Assessment GERD (gastroesophageal reflux disease) 530.81 Active Assessment HTN (hypertension), benign 401.1 Active Assessment Anxiety 300.00 Active Problem 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 Problem GERD (gastroesophageal reflux disease) 530.81 Active Problem HTN (hypertension), benign 401.1 Active Problem Insomnia (Nonorganic sleep disorder, 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 Assessment Left shoulder pain 719.41 Active Problem Anxiety 300.00 Active Problem Generalized anxiety disorder 300.02 Active Assessment URI (upper respiratory infection) 465.9 Active Assessment Insomnia (Nonorganic sleep disorder, 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 Assessment 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 Medications Medication Code System Code Instructions Start Date End Date Status Dosage [facility]em [facility]rate [facility] [address]-74 10 mg PO once every night as needed Dec 26, 2012 Active 1 tablet Keflex [facility] [address]-36 500 mg Orally Twice a day November 04, 2013 November 11, 2013 Active 1 capsule Clonidine HCl [facility] [address]-25 0.1 MG Orally once every night Active 1 tablet Bromfed DM [facility] [address]-44 30-2-10 MG/5ML Orally every 6 hrs November 04, 2013 December 04, 2013 Active 10 ml as needed Zanaflex [facility] [address]-77 2 MG Orally qhs prn November 04, 2013 December 04, 2013 Active 1 tablet as needed Amlodipine Besylate [facility] [address]-78 5 MG orally once a day Active 1 tablet Lansoprazole [facility] [address]-87 30 mg Orally once a day Active 1 tablet Antivert [facility] [address]-17 25 MG Orally three times a day (tid) as needed (prn) Active 1 tablet as needed Zofran [facility] [address]-87 4 MG Orally Active Unknown Losartan Potassium [facility] [address]-64 100 mg orally Once a day Active 1 tablet Neurontin [facility] [address]-32 100 mg Orally Three times a day Feb 25, 2013 Active 1 capsule Alprazolam [facility] [address]-25 0.25 MG Orally daily as needed September 13, 2012 Active 1 tablet Naprosyn [facility] [address]-08 500 mg Orally every 12 hrs November 04, 2013 December 04, 2013 Active 1 tablet as needed Social History Social History Element Qualifiers Date Reported Where or with whom do you live ? . Spouse November 12, 2013 children . 2 November 12, 2013 Tobacco Use: . Are you a: never smoker November 12, 2013 Use of recreational / street drugs? . Answer: No November 12, 2013 Marital Status: . November 12, 2013 Do you drink alcohol? . Status: Yes, Type: Rarely November 12, 2013 Occupation: . Retired November 12, 2013 Vital Signs Date/Time: November 04, 2013 Weight 146 lbs Height 66 in Temperature 99.1 F Cardiac Monitoring Heart Rate 76 /min Blood Pressure Diastolic 80 mm Hg Blood Pressure Systolic 152 mm Hg Results CBC Platelets(- ) 228 NEUTROPHILS(- ) MID-0.4,GRA-3.0 MCHC(- ) 32.3 MCH(- ) 29.5 MCV(- ) 91.4 WBC(- ) 5.1 RBC(- ) 3.69L Hemoglobin(- ) 10.9L Hematocrit(- ) 33.7L Shoulder 2 view- Left Xray Summary Purpose eClinicalWorks Submission
--- OUTSIDE RECORDS SUMMARY | 2018-07-14 20:20 | XMS REPORT ---
Author Author Nita Ohara [facility] eClinicalWorks Address Unknown Phone Unavailable Care Team Providers Care Process Validation Engineer Name Role Phone Nita Ohara CP Unavailable [...] Assessment Generalized anxiety disorder F41.1 Active Problem Schatzki's ring K22.2 Active Problem Benign essential hypertension I10 Active Problem Goiter E04.9 Active Problem Hiatal hernia K44.9 Active Problem Benign essential tremor G25.0 Active Problem Generalized anxiety disorder F41.1 Active Problem Nodular thyroid disease E04.1 Active Medications Medication Code System Code Instructions Start Date End Date Status Dosage Alprazolam [facility] 92900988564 0.25 MG Orally once a day prn USE SPARINGLY September 13, 2012 Active 1 tablet Results No Known Results Summary Purpose eClinicalWorks Submission
--- OUTSIDE RECORDS SUMMARY | 2018-07-14 20:20 | XMS REPORT ---
Author Author Katarzyna Hodgson [facility] eClinicalWorks Address Unknown Phone Unavailable Care Team Providers Care Wood Barrel Reconditioner Name Role Phone Katarzyna Hodgson CP Unavailable Allergies, Adverse Reactions, Alerts Substance Reaction Event Type Morphine Sulfate Info Not Available Drug Allergy Aspir-81 Info Not Available Drug Allergy Encounters Encounter Location Date Unknown [facility] Mar 11, 2013 Unknown [facility] August 13, 2013 [id number] [facility] November 21, 2013 Eye swelling [facility] November 12, 2013 Unknown [facility] Feb 15, 2013 RASH [facility] Feb 11, 2013 depomedrol 120/Decadron 4mg IM [facility] Feb 15, 2013 [facility] Feb 17, 2014 MED REFILL/ SHOULDER PAIN [facility] November 04, 2013 [facility] Feb 25, 2013 Needs call back from Medical Staff [facility] Mar 17, 2014 RESULTS [facility] Apr 08, 2014 US/THYROID DR.[facility] Feb 26, 2014 2 week follow up /ECHO RESULTS [facility] Mar 12, 2014 Problems Problem Type Condition ICD-9 Code Onset Dates Condition Status Problem Generalized anxiety disorder 300.02 Active Problem GERD (gastroesophageal reflux disease) 530.81 Active Problem Anxiety 300.00 Active Problem Thyroid nodule 241.0 Active Problem HTN (Unspecified essential hypertension) 401.9 Active Problem Nodular goiter 241.9 Active Problem HTN (hypertension), benign 401.1 Active Problem 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 Problem Goiter 240.9 Active Problem Benign essential tremor 333.1 Active Assessment Allergic dermatitis 692.9 Active Assessment Nodular goiter 241.9 Active Assessment Vertigo 780.4 Active Assessment Itchy skin 698.9 Active Assessment Insomnia (Nonorganic sleep disorder, 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 Assessment Edema, lower extremity 782.3 Active Assessment HTN (hypertension), benign 401.1 Active Assessment Goiter 240.9 Active Assessment GERD (gastroesophageal reflux disease) 530.81 Active Problem Insomnia (Nonorganic sleep disorder, 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 Medications Medication Code System Code Instructions Start Date End Date Status Dosage [facility]Yzine [facility] [address]-14 10 mg Orally Three times a day November 12, 2013 Active 1 tablet as needed Zofran [facility] [address]-47 4 MG Orally Active [facility] [address]-37 25 MG Orally tid as needed for dizziness Mar 17, 2014 Active 1 tablet Hydrochlorothiazide [facility] [address]-91 25 MG Orally Once a day Apr 08, 2014 Active 1 tablet Amlodipine Besylate [facility] [address]-01 5 MG orally once a day Active 1 tablet Neurontin [facility] [address]-47 100 mg Orally Three times a day Feb 25, 2013 Active 1 capsule Alprazolam [facility] [address]-89 0.25 MG Orally daily as needed September 13, 2012 Active 1 tablet Lansoprazole [facility] [address]-38 30 mg Orally once a day Active 1 tablet Zolpidem Tartrate [facility] [address]-21 10 mg PO once every night as needed Dec 26, 2012 Active 1 tablet Antivert [facility] [address]-36 25 MG Orally three times a day (tid) as needed (prn) Active 1 tablet as needed Losartan Potassium [facility] [address]-17 100 mg orally Once a day Active 1 tablet Clonidine HCl [facility] [address]-33 0.1 MG Orally once every night Active 1 tablet Social History Social History Element Qualifiers Date Reported Where or with whom do you live ? . Spouse Apr 08, 2014 children . 2 Apr 08, 2014 Tobacco Use: . Are you a: never smoker Apr 08, 2014 Use of recreational / street drugs? . Answer: No Apr 08, 2014 Marital Status: . Apr 08, 2014 Do you drink alcohol? . Status: Yes, Type: Rarely Apr 08, 2014 Occupation: . Retired Apr 08, 2014 Family history Qualifier Description Comment Date Reported Father Comment not available Apr 08, 2014 Mother stroke Apr 08, 2014 Siblings brother-hypertention, stroke Apr 08, 2014 Vital Signs Date/Time: Apr 08, 2014 Weight 141 lbs Height 66 in Cardiac Monitoring Heart Rate 74 /min Blood Pressure Diastolic 84 mm Hg Blood Pressure Systolic 162 mm Hg Summary Purpose eClinicalWorks Submission
--- OUTSIDE RECORDS SUMMARY | 2018-07-14 20:20 | XMS REPORT ---
Author Author Ivory Terry [facility] eClinicalWorks Address Unknown Phone Unavailable Care Team Providers Care Taxi Driver Supervisor Name Role Phone Ivory Terry CP Unavailable Allergies No Known Allergies Problems [...] Instructions Start Date End Date Status Dosage Toprol XL [facility] 44138366494 25 MG Orally Once a day May 30, 2017 Active 1 tablet Results No Known Results Summary Purpose eClinicalWorks Submission
--- OUTSIDE RECORDS SUMMARY | 2018-07-14 20:20 | XMS REPORT ---
Author Author Marilia Macias [facility] eClinicalWorks Address Unknown Phone Unavailable Care Team Providers Care Social Work Nurse Name Role Phone Marilia Macias Unavailable Encounters Encounter Location Date Unknown [facility] Feb 15, 2013 RASH [facility] Feb 11, 2013 depomedrol 120/Decadron 4mg IM [facility] Feb 15, 2013 Problems Problem Type Condition ICD-9 Code Onset Dates Condition Status Problem HTN (hypertension) 401.9 Active Problem GERD (gastroesophageal reflux disease) 530.81 Active Problem 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 Problem Insomnia (Nonorganic sleep disorder, 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 Assessment Allergic dermatitis 692.9 Active Problem Anxiety 300.00 Active Problem Generalized anxiety disorder 300.02 Active Medications Medication Code System Code Instructions Start Date End Date Status Dosage Clonidine HCl [facility] [address]-88 0.1 MG Orally Once a day Active 1 tablet at bedtime Zolpidem Tartrate [facility] [address]-53 5 MG Orally qhs Dec 26, 2012 Active 1 tablet at bedtime Amlodipine Besylate [facility] [address]-48 5 MG Active TAKE 1 TABLET ONE TIME DAILY Losartan Potassium [facility] [address]-05 100 MG Active TAKE 1 TABLET ONE TIME DAILY Lansoprazole [facility] [address]-20 30 MG Orally Once a day Active 1 capsule before a meal Lidex MULTUM 4980 0.05 % Externally twice a day (bid) as needed (prn) Feb 11, 2013 Apr 12, 2013 Active as directed Alprazolam [facility] [address]-54 0.25 MG Orally daily as needed September 13, 2012 Active 1 tablet Social History Social History [...] lbs Height 66 inches Temperature 98.3 F Results DECADRON 1MGx4 DEPO MEDROL 40MG X3 UNITS Summary Purpose eClinicalWorks Submission
--- OUTSIDE RECORDS SUMMARY | 2018-07-14 20:20 | XMS REPORT ---
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 Problem Other pruritus L29.8 Active Problem Anxiety F41.9 Active Problem Vertigo R42 Active Problem Schatzki's ring K22.2 Active Problem Dysphagia, unspecified type R13.10 Active Assessment Generalized anxiety disorder F41.1 Active Problem Generalized anxiety disorder F41.1 Active Problem Benign essential hypertension I10 Active Problem Diverticulosis of intestine without bleeding, unspecified intestinal tract location K57.90 Active Problem Goiter E04.9 Active Problem Hiatal hernia K44.9 Active Problem Benign essential tremor G25.0 Active Medications Medication Code System Code Instructions Start Date End Date Status Dosage Alprazolam [facility] 01511796182 0.25 MG Orally once a day prn September 13, 2012 Active 1 tablet Results No Known Results Summary Purpose eClinicalWorks Submission
--- OUTSIDE RECORDS SUMMARY | 2018-07-14 20:20 | XMS REPORT ---
Author Author Nita Ohara [facility] eClinicalWorks Address Unknown Phone Unavailable Care Team Providers Care Dry Transfer Man Name Role Phone Nita Ohara CP Unavailable [...] Date End Date Status Dosage Atorvastatin Calcium [facility] 27928710595 10 mg Orally Once a day Active 1 tablet Results No Known Results Summary Purpose eClinicalWorks Submission
--- OUTSIDE RECORDS SUMMARY | 2018-07-14 20:20 | XMS REPORT ---
Author Author Katarzyna Hodgson [facility] eClinicalWorks Address Unknown Phone Unavailable Care Team Providers Care Car Installations Supervisor Name Role Phone Katarzyna Hodgson CP Unavailable Allergies, Adverse Reactions, Alerts Substance Reaction Event Type Morphine Sulfate Info Not Available Drug Allergy Aspir-81 Info Not Available Drug Allergy Encounters Encounter Location Date Unknown [facility] Mar 11, 2013 Unknown [facility] August 13, 2013 [id number] [facility] November 21, 2013 Eye swelling [facility] November 12, 2013 Unknown [facility] Feb 15, 2013 RASH [facility] Feb 11, 2013 depomedrol 120/Decadron 4mg IM [facility] Feb 15, 2013 [facility] Feb 17, 2014 MED REFILL/ SHOULDER PAIN [facility] November 04, 2013 [facility] Feb 25, 2013 Needs call back from Medical Staff [facility] Mar 17, 2014 RESULTS [facility] Apr 08, 2014 US/THYROID DR.G Rendon [facility] Feb 26, 2014 2 week follow up /ECHO RESULTS [facility] Mar 12, 2014 [...] Benign essential tremor 333.1 Active Assessment Allergic rhinitis 477.9 Active Assessment HTN (Unspecified essential hypertension) 401.9 Active Assessment Post-nasal drip 784.91 Active Problem Insomnia (Nonorganic sleep disorder, 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 Medications Medication Code System Code Instructions Start Date End Date Status Dosage Amlodipine Besylate [facility] [address]-43 5 MG orally once a day Active 1 tablet Antivert [facility] [address]-29 25 MG Orally three times a day (tid) as needed (prn) Active 1 tablet as needed Zolpidem Tartrate [facility] [address]-71 10 mg PO once every night as needed Dec 26, 2012 Active 1 tablet Lansoprazole [facility] [address]-60 30 mg Orally once a day Active 1 tablet Zofran [facility] [address]-45 4 MG Orally Active Unknown Clonidine HCl [facility] [address]-07 0.1 MG Orally once every night Active 1 tablet Alprazolam [facility] [address]-09 0.25 MG Orally daily as needed September 13, 2012 Active 1 tablet HydrOXYzine HCl [facility] [address]-45 10 mg Orally Three times a day November 12, 2013 Active 1 tablet as needed Losartan Potassium [facility] [address]-78 100 mg orally Once a day Active 1 tablet Neurontin [facility] [address]-73 100 mg Orally Three times a day Feb 25, 2013 Active 1 capsule Social History Social History Element Qualifiers Date [...] stroke Apr 08, 2014 Vital Signs Date/Time: Mar 12, 2014 Weight 141 lbs Height 66 in Cardiac Monitoring Heart Rate 68 /min Blood Pressure Diastolic 86 mm Hg Blood Pressure Systolic 162 mm Hg Summary Purpose eClinicalWorks Submission
--- OUTSIDE RECORDS SUMMARY | 2018-07-14 20:20 | XMS REPORT ---
Author Author Nita Ohara [facility] eClinicalWorks Address Unknown Phone Unavailable Care Team Providers Care Body Welder Name Role Phone Nita Ohara CP Unavailable Allergies, Adverse Reactions, Alerts Substance Reaction Event Type Morphine Sulfate Info Not Available Drug Allergy Aspir-81 Info Not Available Drug Allergy Problems Problem Type Condition Code Onset Dates Condition Status Assessment Gastroesophageal reflux disease, esophagitis presence not specified K21.9 Active Assessment Primary insomnia F51.01 Active Assessment Other pruritus L29.8 Active Assessment Adverse effect of unspecified drugs, medicaments and biological substances, initial encounter T50.905A Active Problem Nodular thyroid disease E04.1 Active Assessment Benign essential tremor G25.0 Active Problem Nodular goiter 241.9 Active Assessment 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 Problem Hyperlipidemia, unspecified E78.5 Active Problem 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 Problem Other pruritus L29.8 Active Problem Primary insomnia F51.01 Active Problem Hyperlipidemia E78.5 Active Assessment Generalized anxiety disorder F41.1 Active Assessment Benign essential hypertension I10 Active Problem Gastroesophageal reflux disease, esophagitis presence not specified K21.9 Active Assessment Hyperlipidemia, unspecified E78.5 Active Problem Anxiety F41.9 Active Problem Vertigo R42 Active Problem GERD (gastroesophageal reflux disease) K21.9 Active Problem Insomnia G47.00 Active Problem Diverticulosis of intestine without bleeding, unspecified intestinal tract location K57.90 Active Problem Hiatal hernia K44.9 Active Problem Schatzki's ring K22.2 Active Problem Dysphagia, unspecified type R13.10 Active Problem Goiter E04.9 Active Problem Benign essential tremor G25.0 Active Problem Generalized anxiety disorder F41.1 Active Problem Benign essential hypertension I10 Active Medications Medication Code System Code Instructions Start Date End Date Status Dosage Zolpidem Tartrate [facility] 07660820005 10 mg orally once every night as needed Dec 26, 2012 Active 1 tablet Antivert ND 49874807264 25 MG Orally tid as needed for dizziness Mar 17, 2014 Active 1 tablet Lipitor [facility] 42818107883 10 MG Active TAKE 1 TABLET EVERY DAY Atorvastatin Calcium [facility] 44496775726 10 MG Orally Once a day Active 1 tablet Lansoprazole [facility] 44709839323 30 MG Active TAKE 1 CAPSULE EVERY DAY Amlodipine Besylate [facility] 93215528564 5 MG by mouth daily Active 1 tablet Lipitor [facility] 18201391365 10 Orally Once a day Active 1 tablet HydrOXYzine HCl [facility] 52390061431 10 MG Active TAKE 1 TABLET THREE TIMES DAILY NEEDED Alprazolam [facility] [address]-18 0.25 MG Orally once a day prn September 13, 2012 Active 1 tablet Oxybutynin Chloride [facility] 30528033707 5 MG Orally Twice a day Active 1 tablet Losartan Potassium [facility] 55233285652 100 mg Orally Once a day Active 1 tablet Vital Signs Date/Time: May 12, 2017 BMI 22.11 Index Weight 137 lbs Height 66 in Cardiac Monitoring Heart Rate 70 /min Blood Pressure Diastolic 70 mm Hg Blood Pressure Systolic 136 mm Hg Results No Known Results Summary Purpose eClinicalWorks Submission
--- OUTSIDE RECORDS SUMMARY | 2018-07-14 20:20 | XMS REPORT ---
Author Author Katarzyna Hodgson [facility] eClinicalWorks Address Unknown Phone Unavailable Care Team Providers Care Die Technician Name Role Phone Katarzyna Hodgson CP Unavailable Allergies, Adverse Reactions, Alerts Substance Reaction Event Type Morphine Sulfate Info Not Available Drug Allergy Aspir-81 Info Not Available Drug Allergy Encounters Encounter Location Date Unknown [facility] Mar 11, 2013 Unknown [facility] August 13, 2013 [id number] [facility] November 21, 2013 Eye swelling [facility] November 12, 2013 Unknown [facility] Feb 15, 2013 RASH [facility] Feb 11, 2013 depomedrol 120/Decadron 4mg IM [facility] Feb 15, 2013 MED REFILL/ SHOULDER PAIN [facility] November 04, [address] [facility] Feb 25, 2013 Problems Problem Type Condition ICD-9 Code Onset Dates Condition Status Assessment Radiculopathy 729.2 Active Assessment Benign positional vertigo 386.11 Active Assessment Radiculopathy affecting upper extremity 723.4 Active Problem GERD (gastroesophageal reflux disease) 530.81 Active Problem Anxiety 300.00 Active Problem 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 Assessment 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 Assessment Anxiety 300.00 Active Problem Generalized anxiety disorder 300.02 Active Problem Insomnia (Nonorganic sleep disorder, 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 Medications Medication Code System Code Instructions Start Date End Date Status Dosage Neurontin [facility] [address]-68 100 mg Orally Three times a day Feb 25, 2013 Active as directed [facility] [address]-71 5 MG Orally qhs Dec 26, 2012 Active 1 tablet at bedtime [facility]am [facility] [address]-06 0.25 MG Orally daily as needed September 13, 2012 Active 1 tablet Lansoprazole [facility] [address]-78 30 MG Orally Once a day Active 1 capsule before a meal Losartan Potassium [facility] [address]-62 100 MG Active TAKE 1 TABLET ONE TIME DAILY Lidex Unknown 0 0.05 % Externally twice a day (bid) as needed (prn) Feb 11, 2013 Apr 12, 2013 Active as directed Antivert [facility] [address]-71 25 MG Orally three times a day (tid) as needed (prn) Active 1 tablet as needed Amlodipine Besylate [facility] [address]-87 5 MG Active TAKE 1 TABLET ONE TIME DAILY Clonidine HCl [facility] [address]-99 0.1 MG Orally Once a day Active 1 tablet at bedtime Social History Social History Element Qualifiers Date [...] Retired November 12, 2013 Vital Signs Date/Time: Feb 25, 2013 Weight 144 lbs Temperature 98.2 F Cardiac Monitoring Heart Rate 72 /min Blood Pressure Diastolic 68 mm Hg Blood Pressure Systolic 126 mm Hg Summary Purpose eClinicalWorks Submission
--- OUTSIDE RECORDS SUMMARY | 2018-07-14 20:20 | XMS REPORT ---
Author Author Katarzyna Hodgson [facility] eClinicalWorks Address Unknown Phone Unavailable Care Team Providers Care Drying Tunnel Operator Name Role Phone Katarzyna Hodgson Unavailable Encounters Encounter Location Date Unknown [facility] Mar 11, [address] [facility] August 13, [address] [facility] Feb 15, 2013 RASH [facility] Feb 11, 2013 depomedrol 120/Decadron 4mg [facility] [...] Instructions Start Date End Date Status Dosage Losartan Potassium [facility] [address]-99 100 mg orally Once a day Active 1 tablet Zolpidem Tartrate [facility] [address]-38 5 MG Orally once every night as needed Dec 26, 2012 Active 1 tablet Lansoprazole [facility] [address]-96 30 mg Orally once a day Active 1 tablet Clonidine HCl [facility] [address]-71 0.1 MG Orally once every night Active 1 tablet Amlodipine Besylate [facility] [address]-10 5 MG orally once a day Active 1 tablet Neurontin [facility] [address]-00 100 mg Orally Three times a day Feb 25, 2013 Active 1 capsule Social History Social History Element Qualifiers Date Reported Where or with whom do you live ? . Spouse Feb 25, 2013 children . 2 Feb 25, 2013 Tobacco Use: . Are you a: never smoker Feb 25, 2013 Use of recreational / street drugs? . Answer: No Feb 25, 2013 Marital Status: . Feb 25, 2013 Do you drink alcohol? . Status: Yes, Type: Rarely Feb 25, 2013 Occupation: . Retired Feb 25, 2013 Vital Signs Date/Time: Feb 25, 2013 Weight 144 lbs Height 66 inches Temperature 98.2 F Cardiac Monitoring Heart Rate 72 Beats per Minute Blood Pressure Diastolic 68 mm Hg Blood Pressure Systolic 126 mm Hg Summary Purpose eClinicalWorks Submission
--- OUTSIDE RECORDS SUMMARY | 2018-07-14 20:20 | XMS REPORT ---
Author Author Marilia Macias [facility] eClinicalWorks Address Unknown Phone Unavailable Care Team Providers Care Appointment Scheduler Name Role Phone Marilia Macias CP Unavailable Allergies, Adverse Reactions, Alerts Substance Reaction Event Type Morphine Sulfate Info Not Available Drug Allergy Aspir-81 Info Not Available Drug Allergy Encounters Encounter Location Date Unknown [facility] Feb 15, 2013 RASH [facility] Feb 11, 2013 Problems Problem Type Condition ICD-9 Code Onset Dates Condition Status Assessment Insomnia (Nonorganic sleep disorder, 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 Assessment URI (upper respiratory infection) 465.9 Active Assessment Cough 786.2 Active Assessment Anxiety 300.00 Active Assessment GERD (gastroesophageal reflux disease) 530.81 Active Problem HTN (hypertension) 401.9 Active Problem GERD (gastroesophageal reflux disease) 530.81 Active Problem 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 Problem Insomnia (Nonorganic sleep disorder, 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 Assessment Allergic dermatitis 692.9 Active Problem Anxiety 300.00 Active Problem Generalized anxiety disorder 300.02 Active Medications Medication Code System Code Instructions Start Date End Date Status Dosage Losartan Potassium [facility] [address]-85 100 MG Active TAKE 1 TABLET ONE TIME DAILY Alprazolam [facility] [address]-86 0.25 MG Orally daily as needed September 13, 2012 Active 1 tablet Lansoprazole [facility] [address]-00 30 MG Orally Once a day Active 1 capsule before a meal Clonidine HCl [facility] [address]-18 0.1 MG Orally Once a day Active 1 tablet at bedtime Amlodipine Besylate [facility] [address]-42 5 MG Active TAKE 1 TABLET ONE TIME DAILY Zolpidem Tartrate [facility] [address]-39 5 MG Orally qhs Dec 26, 2012 Active 1 tablet at bedtime Lidex MULTUM 4980 0.05 % Externally twice a day (bid) as needed (prn) Feb 11, 2013 Apr 12, 2013 Active as directed Social History Social History Element Qualifiers Date [...] 2013 Occupation: . Retired Feb 11, 2013 Family history Qualifier Description Comment Date Reported Father Comment not available Feb 11, 2013 Mother stroke Feb 11, 2013 Siblings brother-hypertention, stroke Feb 11, 2013 Vital Signs Date/Time: Feb 11, 2013 Weight 149 lbs Height 66 inches Temperature 98.3 F Results KENALOG 10MG Summary Purpose eClinicalWorks Submission
--- OUTSIDE RECORDS SUMMARY | 2018-07-14 20:20 | XMS REPORT ---
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 Problem Other pruritus L29.8 Active Problem Primary insomnia F51.01 Active Problem Hyperlipidemia E78.5 Active Problem Gastroesophageal reflux disease, esophagitis presence not specified K21.9 Active Problem Anxiety F41.9 Active Problem Vertigo [...] Problem Nodular thyroid disease E04.1 Active Problem Benign essential hypertension I10 Active Problem Nodular goiter 241.9 Active Medications Medication Code System Code Instructions Start Date End Date Status Dosage HydrOXYzine HCl ND 91167655164 10 MG Active TAKE 1 TABLET THREE TIMES DAILY NEEDED Alprazolam ND 15956024707 0.25 MG Orally once a day prn September 13, 2012 Active 1 tablet Zolpidem Tartrate ND 29390569580 10 mg orally once every night as needed Dec 26, 2012 Active 1 tablet Lipitor ND 88293740275 10 Orally Once a day Active 1 tablet Atorvastatin Calcium ND 94985761111 10 MG Orally Once a day Active 1 tablet Lansoprazole [facility] 01512463236 30 MG Active TAKE 1 CAPSULE EVERY DAY Amlodipine Besylate ND 12806778708 5 MG by mouth daily Active 1 tablet Losartan Potassium ND 97092639007 100 mg Orally Once a day Active 1 tablet Oxybutynin Chloride ND 80989284580 5 MG Orally Twice a day Active 1 tablet Antivert [facility] 11940842015 25 MG Orally tid as needed for dizziness Mar 17, 2014 Active 1 tablet Results No Known Results Summary Purpose eClinicalWorks Submission
--- OUTSIDE RECORDS SUMMARY | 2018-07-14 20:20 | XMS REPORT ---
Author Author Katarzyna Hodgson [facility] eClinicalWorks Address Unknown Phone Unavailable Care Team Providers Care Fabric Worker Foreman Name Role Phone Katarzyna Hodgson CP Unavailable Encounters Encounter Location Date Unknown [facility] Mar 11, 2013 Unknown [facility] Feb 15, 2013 RASH [facility] Feb 11, 2013 depomedrol 120/Decadron 4mg IM [facility] Feb 15, 2013 [...] Instructions Start Date End Date Status Dosage Ceftin [facility] [address]-22 250 MG Orally twice a day (bid) Mar 11, 2013 Mar 18, 2013 Active 1 tablet Social History Social History [...]
--- OUTSIDE RECORDS SUMMARY | 2018-07-14 20:20 | XMS REPORT ---
Author Author Katarzyna Hodgson [facility] eClinicalWorks Address Unknown Phone Unavailable Care Team Providers Care Market Research Specialist Name Role Phone Katarzyna Hodgson Unavailable Encounters Encounter Location Date Unknown [facility] Mar 11, 2013 Unknown [facility] August 13, 2013 [id number] [facility] November 21, 2013 Eye swelling [facility] November 12, 2013 Unknown [facility] Feb 15, 2013 RASH [facility] Feb 11, 2013 depomedrol 120/Decadron 4mg IM [facility] Feb 15, 2013 MED REFILL/ SHOULDER PAIN [facility] November 04, [address] 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 Retired November 12, 2013 Summary Purpose eClinicalWorks Submission
--- OUTSIDE RECORDS SUMMARY | 2018-07-14 20:20 | XMS REPORT ---
Author Author Michael Saucedo Organization [employer] Address Unknown Phone Unavailable Care Team Providers Care Web Application Tester Name Role Phone Michael Saucedo CP Unavailable Allergies No Known Allergies Problems [...] Problem Dysphagia, unspecified type R13.10 Active Problem Generalized anxiety disorder F41.1 Active Problem Benign essential hypertension I10 Active Problem Diverticulosis of intestine without bleeding, unspecified intestinal tract location K57.90 Active Problem Goiter E04.9 Active Problem Hiatal hernia K44.9 Active Problem Benign essential tremor G25.0 Active Medications Medication Code System Code Instructions Start Date End Date Status Dosage Zolpidem Tartrate [facility] 70928940259 10 mg orally once every night as needed Dec 26, 2012 Active 1 tablet Results No Known Results Summary Purpose eClinicalWorks Submission
--- OUTSIDE RECORDS SUMMARY | 2018-07-14 20:20 | XMS REPORT ---
Author Author Katarzyna Hodgson [facility] [place] [employer] Address Unknown Phone Unavailable Care Team Providers Care Occasional Babysitter Name Role Phone Katarzyna Hodgson CP Unavailable Allergies, Adverse Reactions, Alerts Substance Reaction Event Type Morphine Sulfate Info Not Available Drug Allergy Aspir-81 Info Not Available Drug Allergy Encounters Encounter Location Date Unknown [facility] Mar 11, 2013 Unknown [facility] August 13, 2013 [email or web address] [facility] November 21, 2013 Eye swelling [facility] November 12, 2013 Unknown [facility] Feb 15, 2013 RASH [facility] Feb 11, 2013 depomedrol 120/Decadron 4mg IM [facility] Feb 15, 2013 MED REFILL/ SHOULDER PAIN [facility] November 04, 2013 [facility] Feb 25, 2013 Problems Problem Type Condition ICD-9 Code Onset Dates Condition Status Problem 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 Problem GERD (gastroesophageal reflux disease) 530.81 Active Problem HTN (hypertension), benign 401.1 Active Problem Insomnia (Nonorganic sleep disorder, 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 Assessment Seasonal allergies 477.9 Active Problem Anxiety 300.00 Active Problem Generalized anxiety disorder 300.02 Active Medications Medication Code System Code Instructions Start Date End Date Status Dosage Antivert MEDISPAN [address]-09 25 MG Orally three times a day (tid) as needed (prn) Active 1 tablet as needed Bromfed DM [facility] [address]-02 30-2-10 MG/5ML Orally every 6 hrs November 04, 2013 December 04, 2013 Active 10 ml as needed Amlodipine Besylate [facility] [address]-57 5 MG orally once a day Active 1 tablet Zolpidem Tartrate [facility] [address]-73 10 mg PO once every night as needed Dec 26, 2012 Active 1 tablet Zofran [facility] [address]-39 4 MG Orally Active Unknown Zanaflex [facility] [address]-22 2 MG Orally qhs prn November 04, 2013 December 04, 2013 Active 1 tablet as needed Naprosyn [facility] [address]-85 500 mg Orally every 12 hrs November 04, 2013 December 04, 2013 Active 1 tablet as needed Clonidine HCl [facility] [address]-08 0.1 MG Orally once every night Active 1 tablet Neurontin [facility] [address]-54 100 mg Orally Three times a day Feb 25, 2013 Active 1 capsule Losartan Potassium [facility] [address]-19 100 mg orally Once a day Active 1 tablet Alprazolam [facility] [address]-71 0.25 MG Orally daily as needed September 13, 2012 Active 1 tablet HydrOXYzine HCl [facility] [address]-77 10 mg Orally Three times a day November 12, 2013 Active 1 tablet as needed Lansoprazole [facility] [address]-02 30 mg Orally once a day Active [...] November 12, 2013 Vital Signs Date/Time: November 12, 2013 Weight 146 lbs Height 66 in Cardiac Monitoring Heart Rate 78 /min Blood Pressure Diastolic 72 mm Hg Blood Pressure Systolic 132 mm Hg Results DECADRON 1MGx4 DEPO MEDROL 40MG X3 UNITS Summary Purpose eClinicalWorks Submission
--- OUTSIDE RECORDS SUMMARY | 2018-07-14 20:21 | XMS REPORT ---
Author Author Tamy Rivers [facility] eClinicalWorks Address Unknown Phone Unavailable Care Team Providers Care Oyster Buyer Name Role Phone Tamy Rivers CP Unavailable Encounters Encounter Location Date [facility] Feb 17, 2014 Unknown [facility] August 08, 2014 Unknown [facility] August 26, 2014 Refill [facility] Apr 23, 2014 Unknown [facility] July 22, 2014 Needs call back from Medical Staff [facility] Mar 17, 2014 RESULTS [facility] Apr 08, 2014 US/THYROID [facility] Feb 26, 2014 2 week follow up /ECHO RESULTS [facility] Mar 12, 2014 question [facility] August 27, 2014 Unknown [facility] Mar 11, 2013 Unknown [facility] August 13, 2013 [email or web address] [facility] November 21, 2013 Eye swelling [facility] November 12, 2013 Unknown [facility] Feb 15, 2013 RASH [facility] Feb 11, 2013 depomedrol 120/Decadron 4mg IM [facility] Feb 15, 2013 4 week follow up [facility] September 23, 2014 Unknown [facility] September 02, 2014 MED REFILL/ SHOULDER PAIN [facility] November 04, 2013 [facility] Feb 25, 2013 physical exam [facility] Apr 14, 2015 Unknown [facility] Apr 21, 2015 Refill [facility] May 04, 2015 Unknown [facility] July 07, 2015 Problems Problem Type Condition ICD-9 Code Onset Dates Condition Status Problem Goiter E04.9 Active Problem Nodular goiter 241.9 Active Problem Thyroid nodule 241.0 Active Problem 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 Retired July 07, 2015 children . 2 July 07, 2015 Ethnicity . Status , Is korean your primary language? Yes July 07, 2015 Tobacco Use: . Are you a: never smoker July 07, 2015 Last Colonoscopy: . 2011July 07, 2015 Use of recreational / street drugs? . Answer: No July 07, 2015 Do you have pets? . Status: No July 07, 2015 Where or with whom do you live ? . Spouse July 07, 2015 Last Bone Density: . 2014July 07, 2015 Marital Status: . July 07, 2015 Caffeine intake? . Status: Yes, What type: Coffee, Tea, Soft Drinks July 07, 2015 Do you exercise? . Answer: No July 07, 2015 Flu Vaccine: . 2014July 07, 2015 Depression Screening: . negative July 07, 2015 Do you drink alcohol? . Status: Yes, Type: Rarely July 07, 2015 Summary Purpose eClinicalWorks Submission
--- OUTSIDE RECORDS SUMMARY | 2018-07-14 20:21 | XMS REPORT ---
Author Author Katarzyna Hodgson [facility] [employer]Works Address Unknown Phone Unavailable Care Team Providers Care Outreach Counselor Name Role Phone Katarzyna Hodgson Unavailable Encounters Encounter Location Date Unknown [facility] Mar 11, 2013 Unknown [facility] August 13, 2013 [id number] [facility] November 21, 2013 Eye swelling [facility] November 12, 2013 Unknown [facility] Feb 15, 2013 RASH [facility] Feb 11, 2013 depomedrol 120/Decadron 4mg IM [facility] Feb 15, 2013 [facility] Feb 17, 2014 Unknown [facility] September 02, 2014 MED REFILL/ SHOULDER PAIN [facility] November 04, 2013 [facility] Feb 25, 2013 Unknown [facility] August 08, 2014 Unknown [facility] August 26, 2014 Refill [facility] Apr 23, 2014 Unknown [facility] July 22, 2014 Needs call back from Medical Staff [facility] Mar 17, 2014 RESULTS [facility] Apr 08, 2014 US/THYROID DR[facility]G [facility] Feb 26, 2014 2 week follow up /ECHO RESULTS [facility] Mar 12, 2014 question [facility] August 27, 2014 Problems Problem Type Condition ICD-9 Code Onset Dates Condition Status Problem Generalized anxiety disorder 300.02 Active Problem GERD (gastroesophageal reflux disease) 530.81 Active Problem Anxiety 300.00 Active Problem Insomnia (Nonorganic sleep disorder, 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 Problem Thyroid nodule 241.0 Active Problem HTN (Unspecified essential hypertension) 401.9 Active Problem Nodular goiter 241.9 Active Problem HTN (hypertension), benign 401.1 Active Problem 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 . Spouse August 26, 2014 children . 2 August 26, 2014 Tobacco Use: . Are you a: never smoker August 26, 2014 Use of recreational / street drugs? . Answer: No August 26, 2014 Marital Status: . August 26, 2014 Do you drink alcohol? . Status: Yes, Type: Rarely August 26, 2014 Occupation: . Retired August 26, 2014 Summary Purpose eClinicalWorks Submission
--- OUTSIDE RECORDS SUMMARY | 2018-07-14 20:21 | XMS REPORT ---
Author Author Ntia Arnett [facility] eClinicalWorks Address Unknown Phone Unavailable Care Team Providers Care Brick Chimney Supervisor Name Role Phone Nita Arnett Unavailable Encounters Encounter Location Date Unknown [facility] Mar 11, 2013 Unknown [facility] August 13, 2013 [email or web address] [facility] November 21, 2013 Eye swelling [facility] November 12, 2013 Unknown [facility] Feb 15, 2013 RASH [facility] Feb 11, 2013 depomedrol 120/Decadron 4mg IM [facility] Feb 15, 2013 [facility] Feb 17, 2014 4 week follow up [facility] September 23, 2014 Unknown [facility] September 02, 2014 MED REFILL/ SHOULDER PAIN [facility] November 04, 2013 [facility] Feb 25, 2013 Unknown [facility] August 08, 2014 Unknown [facility] August 26, 2014 Refill [facility] Apr 23, 2014 Unknown [facility] July 22, 2014 physical exam [facility] Apr 14, 2015 Needs call back from Medical Staff [facility] Mar 17, 2014 Unknown [facility] Apr 21, 2015 RESULTS [facility] Apr 08, 2014 Refill [facility] May 04, 2015 US/THYROID [facility] Feb 26, 2014 2 week follow up /ECHO RESULTS [facility] Mar 12, 2014 question [facility] August 27, [...] do you live ? . Spouse Apr 14, 2015 children . 2 Apr 14, 2015 Tobacco Use: . Are you a: never smoker Apr 14, 2015 Use of recreational / street drugs? . Answer: No Apr 14, 2015 Marital Status: . Apr 14, 2015 Do you drink alcohol? . Status: Yes, Type: Rarely Apr 14, 2015 Occupation: . Retired Apr 14, 2015 Summary Purpose eClinicalWorks Submission
--- OUTSIDE RECORDS SUMMARY | 2018-07-14 20:21 | XMS REPORT ---
Author Author Nita Arnett [facility] [place] eClinicalWorks Address Unknown Phone Unavailable Care Team Providers Care Feeder Catcher Name Role Phone Nita Arnett Unavailable Encounters Encounter Location Date Unknown [facility] Mar 11, 2013 Unknown [facility] August 13, 2013 [email or web address] [facility] November 21, 2013 Eye swelling [facility] November 12, 2013 Unknown [facility] Feb 15, 2013 RASH [facility] Feb 11, 2013 depomedrol 120/Decadron 4mg IM [facility] Feb 15, 2013 [facility] Feb 17, 2014 4 week follow up [facility] September 23, 2014 Unknown [facility] September 02, 2014 MED REFILL/ SHOULDER PAIN [facility] November 04, 2013 [facility] Feb 25, 2013 Unknown [facility] August 08, 2014 Unknown [facility] August 26, 2014 Refill [facility] Apr 23, 2014 Unknown [facility] July 22, 2014 physical exam [facility] Apr 14, 2015 Needs call back from Medical Staff [facility] Mar 17, 2014 Unknown [facility] Apr 21, 2015 RESULTS [facility] Apr 08, 2014 US/THYROID [facility] Feb 26, 2014 2 week follow up /ECHO RESULTS [facility] Mar 12, 2014 question [facility] [...]
--- OUTSIDE RECORDS SUMMARY | 2018-07-14 20:21 | XMS REPORT ---
Author Author Nita Ohara [facility] eClinicalWorks Address Unknown Phone Unavailable Care Team Providers Care Slate Handler Name Role Phone Rendon Nita Orourke CP Unavailable Allergies, Adverse Reactions, Alerts Substance Reaction Event Type Morphine Sulfate Info Not Available Drug Allergy Aspir-81 Info Not Available Drug Allergy Encounters Encounter Location Date [facility] Feb 17, 2014 Unknown [facility] August 08, 2014 Unknown [facility] August 26, 2014 Refill [facility] Apr 23, 2014 Unknown [facility] July 22, 2014 Needs call back from Medical Staff [facility] Mar 17, 2014 RESULTS [facility] Apr 08, 2014 US/THYROID DR.G [facility] Feb 26, 2014 2 week follow up /ECHO RESULTS [facility] Mar 12, 2014 question [facility] August 27, 2014 Unknown [facility] Mar 11, 2013 Unknown [facility] August 13, 2013 [email or web address] [facility] November 21, 2013 Eye swelling [facility] November 12, 2013 Unknown [facility] Feb 15, 2013 RASH [facility] Feb 11, 2013 depomedrol 120/Decadron 4mg IM [facility] Feb 15, 2013 4 week follow up [facility] September 23, 2014 Unknown [facility] September 02, 2014 MED REFILL/ SHOULDER PAIN [facility] November 04, 2013 HOSPITAL [facility] Feb 25, 2013 stomach virus? chills [facility] July 07, 2015 follow up [facility] July 09, 2015 physical exam [facility] Apr 14, 2015 Unknown [facility] Apr 21, 2015 Refill [facility] May 04, 2015 Unknown [facility] July 07, [...] R42 Active Problem Other pruritus L29.8 Active Assessment Body mass index (BMI) of 22.0 to 22.9 in adult Z68.22 Active Assessment Hyperglycemia R73.9 Active Assessment Normal body mass index Z78.9 Active Assessment Abnormal finding on urinalysis R82.90 Active Problem Generalized anxiety disorder F41.1 Active Assessment Pneumonia J18.9 Active Problem Benign essential hypertension I10 Active Assessment Essential tremor G25.0 Active Problem Benign essential tremor G25.0 Active Medications Medication Code System Code Instructions Start Date End Date Status Dosage Amlodipine Besylate [facility] [address]-45 5 MG orally once a day Active 1 tablet Zolpidem Tartrate [facility] [address]-20 10 mg orally once every night as needed Dec 26, 2012 Active 1 tablet Alprazolam [facility] [address]-63 0.25 MG Orally once a day prn September 13, 2012 Active 1 tablet Levaquin [facility] [address]-44 500 mg Orally Once a day July 07, 2015 July 17, 2015 Active 1 tablet HydrOXYzine HCl [facility] [address]-98 10 mg Orally Three times a day prn November 12, 2013 Active 1 tablet as needed Lipitor [facility] 47417364231 10 Orally Once a day Active 1 tablet Medrol (Mathew) [facility] [address]-64 4 mg Orally as directed July 08, 2015 July 14, 2015 Active as directed Lansoprazole [facility] [address]-23 30 mg Orally once a day Active 1 tablet Clonidine HCl [facility] [address]-59 0.1 MG Orally once every night Active 1 tablet [facility] [address]-94 25 MG Orally tid as needed for dizziness Mar 17, 2014 Active 1 tablet Losartan Potassium [facility] [address]-28 100 mg orally Once a day Active 1 tablet Social History Social History Element Qualifiers Date Reported Occupation: . Retired July 09, 2015 children . 2 July 09, 2015 Ethnicity . Status , Is malay your primary language? Yes July 09, 2015 Tobacco Use: . Are you a: never smoker July 09, 2015 Last Colonoscopy: . 2011July 09, 2015 Use of recreational / street drugs? . Answer: No July 09, 2015 Do you have pets? . Status: No July 09, 2015 Where or with whom do you live ? . Spouse July 09, 2015 Last Bone Density: . 2014July 09, 2015 Marital Status: . July 09, 2015 Caffeine intake? . Status: Yes, What type: Coffee, Tea, Soft Drinks July 09, 2015 Do you exercise? . Answer: No July 09, 2015 Flu Vaccine: . 2014July 09, 2015 Depression Screening: . negative July 09, 2015 Do you drink alcohol? . Status: Yes, Type: Rarely July 09, 2015 Vital Signs Date/Time: July 09, 2015 Weight 141 lbs Height 66 in Cardiac Monitoring Heart Rate 70 /min Blood Pressure Diastolic 72 mm Hg Blood Pressure Systolic 148 mm Hg Summary Purpose eClinicalWorks Submission
--- OUTSIDE RECORDS SUMMARY | 2018-07-14 20:21 | XMS REPORT ---
Author Author Tamy Rivers [facility] eClinicalWorks Address Unknown Phone Unavailable Care Team Providers Care Open End Spinning Operator Name Role Phone Silvestre Tamy REED Unavailable Allergies, Adverse Reactions, Alerts Substance Reaction Event Type Morphine Sulfate Info Not Available Drug Allergy Aspir-81 Info Not Available Drug Allergy Encounters Encounter Location Date [facility] Feb 17, 2014 Unknown [facility] August 08, 2014 Unknown [facility] August 26, 2014 Refill [facility] Apr 23, 2014 Unknown [facility] July 22, 2014 Needs call back from Medical Staff [facility] Mar 17, 2014 RESULTS [facility] Apr 08, 2014 US/THYROID DR[facility]G [facility] Feb 26, 2014 2 week follow up /ECHO RESULTS [facility] Mar 12, 2014 question [facility] August 27, 2014 Unknown [facility] Mar 11, 2013 Unknown [facility] August 13, 2013 [email or web address] [facility] November 21, 2013 Eye swelling [facility] November 12, 2013 Unknown [facility] Feb 15, 2013 RASH [facility] Feb 11, 2013 depomedrol 120/Decadron 4mg IM [facility] Feb 15, 2013 4 week follow up [facility] September 23, 2014 Unknown [facility] September 02, 2014 MED REFILL/ SHOULDER PAIN [facility] November 04, 2013 [facility] Feb 25, 2013 stomach virus? chills [facility] July 07, 2015 follow up [facility] July 09, 2015 Unknown [facility] July 16, 2015 2 week follow up [facility] July 17, 2015 physical exam [facility] Apr 14, 2015 Unknown [facility] Apr 21, 2015 Refill [facility] May 04, 2015 Unknown [facility] July 07, 2015 Problems Problem Type Condition ICD-9 Code Onset Dates Condition Status Problem Thyroid nodule 241.0 Active Problem Hyperlipidemia, unspecified E78.5 Active Problem Nodular goiter 241.9 Active Problem Insomnia G47.00 Active Assessment Essential hypertension I10 Active Problem 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 Assessment Urinary tract infection N39.0 Active Problem Hyperlipidemia E78.5 Active Problem Other pruritus L29.8 Active Problem Anxiety F41.9 Active Problem GERD (gastroesophageal reflux disease) K21.9 Active Problem Vertigo R42 Active Assessment Hyperglycemia R73.9 Active Assessment Pneumonia J18.9 Active Assessment Hyperlipidemia E78.5 Active Assessment Prediabetes R73.09 Active Problem Generalized anxiety disorder F41.1 Active Problem Benign essential hypertension I10 Active Assessment Benign essential tremor G25.0 Active Problem Benign essential tremor G25.0 Active Assessment Dysuria R30.0 Active Problem Goiter E04.9 Active Medications Medication Code System Code Instructions Start Date End Date Status Dosage Lipitor [facility] 72158659949 10 Orally Once a day Active 1 tablet Antivert [facility] [address]-29 25 MG Orally tid as needed for dizziness Mar 17, 2014 Active 1 tablet Clonidine HCl [facility] [address]-74 0.1 MG Orally once every night Active 1 tablet Lansoprazole [facility] [address]-20 30 mg Orally once a day Active 1 tablet Zolpidem Tartrate [facility] [address]-04 10 mg orally once every night as needed Dec 26, 2012 Active 1 tablet Levaquin [facility] [address]-17 500 mg Orally Once a day July 07, 2015 July 17, 2015 Inactive 1 tablet Amlodipine Besylate [facility] [address]-05 5 MG orally once a day Active 1 tablet Alprazolam [facility] [address]-57 0.25 MG Orally once a day prn September 13, 2012 Active 1 tablet Macrobid [facility] [address]-66 100 mg Orally every 12 hrs July 17, 2015 July 24, 2015 Active 1 capsule with food Zithromax Z-Mathew [facility] [address]-15 250 MG Orally Once a day July 17, 2015 July 22, 2015 Active 2 tablets on the first day, then 1 tablet daily for 4 days HydrOXYzine HCl [facility] [address]-96 10 mg Orally Three times a day prn November 12, 2013 Active 1 tablet as needed Losartan Potassium [facility] [address]-51 100 mg orally Once a day Active 1 tablet Social History Social History Element Qualifiers Date Reported Occupation: . Retired July 17, 2015 children . 2 July 17, 2015 Ethnicity . Status , Is hungarian your primary language? Yes July 17, 2015 Tobacco Use: . Are you a: never smoker July 17, 2015 Last Colonoscopy: . 2011July 17, 2015 Use of recreational / street drugs? . Answer: No July 17, 2015 Do you have pets? . Status: No July 17, 2015 Where or with whom do you live ? . Spouse July 17, 2015 Last Bone Density: . 2014July 17, 2015 Marital Status: . July 17, 2015 Caffeine intake? . Status: Yes, What type: Coffee, Tea, Soft Drinks July 17, 2015 Do you exercise? . Answer: No July 17, 2015 Flu Vaccine: . 2014July 17, 2015 Depression Screening: . negative July 17, 2015 Do you drink alcohol? . Status: Yes, Type: Rarely July 17, 2015 Vital Signs Date/Time: July 17, 2015 Weight 137 lbs Height 66 in Cardiac Monitoring Heart Rate 74 /min Blood Pressure Diastolic 74 mm Hg Blood Pressure Systolic 128 mm Hg Results URINE AUTO W/O SCOPE Urine Culture, Routine Summary Purpose eClinicalWorks Submission
--- OUTSIDE RECORDS SUMMARY | 2018-07-14 20:21 | XMS REPORT ---
Author Author Katarzyna Hodgson [facility] eClinicalWorks Address Unknown Phone Unavailable Care Team Providers Care Director Mission Name Role Phone Katarzyna Hodgson CP Unavailable Allergies, Adverse Reactions, Alerts Substance Reaction Event Type Morphine Sulfate Info Not Available Drug Allergy Aspir-81 Info Not Available Drug Allergy Encounters Encounter Location Date Unknown [facility] Mar 11, 2013 Unknown [facility] August 13, 2013 [email or web address] [facility] November 21, 2013 Eye swelling [facility] November 12, 2013 Unknown [facility] Feb 15, 2013 RASH [facility] Feb 11, 2013 depomedrol 120/Decadron 4mg IM [facility] Feb 15, 2013 [facility] Feb 17, 2014 4 week follow up [facility] September 23, 2014 Unknown [facility] September 02, 2014 MED REFILL/ SHOULDER PAIN [facility] November 04, 2013 [facility] Feb 25, 2013 Unknown [facility] August 08, 2014 Unknown [facility] August 26, 2014 Refill [facility] Apr 23, 2014 Unknown [facility] July 22, 2014 Needs call back from Medical Staff [facility] Mar 17, 2014 RESULTS [facility] Apr 08, 2014 US/THYROID DR.G [facility] Feb 26, 2014 2 week follow up /ECHO RESULTS [facility] Mar 12, 2014 question [facility] August 27, 2014 Problems Problem Type Condition ICD-9 Code Onset Dates Condition Status Problem Generalized anxiety disorder 300.02 Active Problem GERD (gastroesophageal reflux disease) 530.81 Active Problem Anxiety 300.00 Active Problem Nodular goiter 241.9 Active Problem Thyroid nodule 241.0 Active Problem HLD (hyperlipidemia) 272.4 Active Problem HTN (hypertension), benign 401.1 Active Problem 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 Problem Goiter 240.9 Active Problem Benign essential tremor 333.1 Active Assessment HLD (hyperlipidemia) 272.4 Active Assessment Anxiety 300.00 Active Assessment HTN (hypertension), benign 401.1 Active Problem Insomnia (Nonorganic sleep disorder, 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 Medications Medication Code System Code Instructions Start Date End Date Status Dosage Losartan Potassium [facility] [address]-95 100 mg orally Once a day Active 1 tablet Lansoprazole [facility] [address]-17 30 mg Orally once a day Active 1 tablet Klonopin [facility] [address]-48 1 MG Orally Twice a day August 26, 2014 Active 1/2 half tablet Amlodipine Besylate [facility] [address]-03 5 MG orally once a day Active 1 tablet [facility] [address]-66 25 MG Orally tid as needed for dizziness Mar 17, 2014 Active 1 tablet Alprazolam [facility] [address]-54 0.25 MG Orally daily as needed September 13, 2012 Active 1 tablet [facility] [address]-32 25 MG Orally three times a day (tid) as needed (prn) Active 1 tablet as needed Zolpidem Tartrate [facility] [address]-18 10 mg orally once every night as needed Dec 26, 2012 Active 1 tablet HydrOXYzine HCl [facility] [address]-67 10 mg Orally Three times a day November 12, 2013 Active 1 tablet as needed Lipitor [facility] [address]-16 10 mg Orally Once a day August 26, 2014 Active 1 tablet Clonidine HCl [facility] [address]-75 0.1 MG Orally once every night Active 1 tablet Social History Social History Element Qualifiers Date Reported Where or with whom do you live ? . Spouse September 23, 2014 children . 2 September 23, 2014 Tobacco Use: . Are you a: never smoker September 23, 2014 Use of recreational / street drugs? . Answer: No September 23, 2014 Marital Status: . September 23, 2014 Do you drink alcohol? . Status: Yes, Type: Rarely September 23, 2014 Occupation: . Retired September 23, 2014 Family history Qualifier Description Comment Date Reported Maternal Grandmother Comment not available September 23, 2014 Paternal Grandmother Comment not available September 23, 2014 Siblings brother-hypertention, stroke September 23, 2014 Maternal Grandfather Comment not available September 23, 2014 Children Comment not available September 23, 2014 Father Comment not available September 23, 2014 Paternal Grandfather Comment not available September 23, 2014 Mother stroke September 23, 2014 Other: Comment not available September 23, 2014 Vital Signs Date/Time: September 23, 2014 Weight 142 lbs Height 66 in Cardiac Monitoring Heart Rate 77 /min Blood Pressure Diastolic 86 mm Hg Blood Pressure Systolic 164 mm Hg Summary Purpose eClinicalWorks Submission
--- OUTSIDE RECORDS SUMMARY | 2018-07-14 20:21 | XMS REPORT ---
Author Author Katarzyna Hodgson [facility] eClinicalWorks Address Unknown Phone Unavailable Care Team Providers Care Neon Pumper Name Role Phone Katarzyna Hodgson Unavailable Encounters Encounter Location Date Unknown [facility] Mar 11, 2013 Unknown [facility] August 13, 2013 [email or web address] [facility] November 21, 2013 Eye swelling [facility] November 12, 2013 Unknown [facility] Feb 15, 2013 RASH [facility] Feb 11, 2013 depomedrol 120/Decadron 4mg IM [facility] Feb 15, 2013 [facility] Feb 17, 2014 MED REFILL/ SHOULDER PAIN [facility] November 04, 2013 [facility] Feb 25, 2013 Needs call back from Medical Staff [facility] Mar 17, 2014 RESULTS [facility] Apr 08, 2014 US/THYROID DR.G [facility] Feb 26, 2014 2 week follow up /ECHO RESULTS [facility] Mar 12, 2014 Problems Problem Type Condition ICD-9 Code Onset Dates Condition Status Problem Insomnia (Nonorganic sleep disorder, 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 Assessment Goiter 240.9 Active Problem Benign essential tremor 333.1 Active Problem HTN (hypertension), benign 401.1 Active Problem Goiter 240.9 Active Problem Anxiety 300.00 Active Problem Generalized anxiety disorder 300.02 Active Problem 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 Problem GERD (gastroesophageal reflux disease) 530.81 Active Medications Medication Code System Code Instructions Start Date End Date Status Dosage HydrOXYzine HCl [facility] [address]-91 10 mg Orally Three times a day November 12, 2013 Active 1 tablet as needed Neurontin [facility] [address]-73 100 mg Orally Three times a day Feb 25, 2013 Active 1 capsule Zolpidem Tartrate [facility] [address]-09 10 mg PO once every night as needed Dec 26, 2012 Active 1 tablet Amlodipine Besylate [facility] [address]-08 5 MG orally once a day Active 1 tablet Clonidine HCl [facility] [address]-89 0.1 MG Orally once every night Active 1 tablet Zofran [facility] [address]-59 4 MG Orally Active Unknown Lansoprazole [facility] [address]-70 30 mg Orally once a day Active 1 tablet Alprazolam [facility] [address]-60 0.25 MG Orally daily as needed September 13, 2012 Active 1 tablet Losartan Potassium [facility] [address]-46 100 mg orally Once a day Active 1 tablet Antivert [facility] [address]-84 25 MG Orally three times a day (tid) as needed (prn) Active 1 tablet as needed Social History [...] 2014 Siblings brother-hypertention, stroke Apr 08, 2014 Summary Purpose eClinicalWorks Submission
--- OUTSIDE RECORDS SUMMARY | 2018-07-14 20:21 | XMS REPORT ---
Author Author Tamy Rivers [facility] eClinicalWorks Address Unknown Phone Unavailable Care Team Providers Care Quality Improvement Consultant Name Role Phone Silvestre Tamy REED Unavailable Allergies, Adverse Reactions, Alerts Substance Reaction Event Type Morphine Sulfate Info Not Available Drug Allergy Aspir-81 Info Not Available Drug Allergy Encounters Encounter Location Date [facility] Feb 17, 2014 UTI and Pneumonia [facility] July 31, 2015 still has UTI [facility] July 28, 2015 Unknown [facility] August 08, 2014 Unknown [facility] August 26, 2014 Refill [facility] Apr 23, 2014 Unknown [facility] July 22, 2014 Needs call back from Medical Staff [facility] Mar 17, 2014 RESULTS [facility] Apr 08, 2014 US/THYROID DR.G [facility] Feb 26, 2014 2 week follow up /ECHO RESULTS [facility] Mar 12, 2014 question [facility] August 27, 2014 Unknown [facility] Mar 11, 2013 Unknown [facility] August 13, 2013 [email or web address] [facility] November 21, 2013 Eye swelling [facility] November 12, 2013 Unknown [facility] Feb 15, 2013 RASH [facility] Feb 11, 2013 depomedrol 120/Decadron 4mg IM [facility] Feb 15, 2013 4 week follow up [facility] September 23, 2014 Unknown [facility] September 02, 2014 MED REFILL/ SHOULDER PAIN [facility] November 04, 2013 HOSPITAL [facility] Feb 25, 2013 stomach virus? chills [facility] July 07, 2015 follow up [facility] July 09, 2015 Unknown [facility] July 16, 2015 2 week follow up [facility] July 17, 2015 physical exam [facility] Apr 14, 2015 Unknown [facility] Apr 21, 2015 Refill Rendon [facility] May 04, 2015 Unknown [facility] July 07, 2015 Problems Problem Type Condition ICD-9 Code Onset Dates Condition Status Problem Thyroid nodule 241.0 Active Problem Hyperlipidemia, unspecified E78.5 Active Problem Nodular goiter 241.9 Active Problem Insomnia G47.00 Active Assessment Cough R05 Active Problem 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0 Active Assessment Urinary tract infection N39.0 Active Problem Goiter E04.9 Active Medications Medication Code System Code Instructions Start Date End Date Status Dosage Zolpidem Tartrate [facility] [address]-08 10 mg orally once every night as needed Dec 26, 2012 Active 1 tablet Antivert [facility] [address]-44 25 MG Orally tid as needed for dizziness Mar 17, 2014 Active 1 tablet Clonidine HCl [facility] [address]-57 0.1 MG Orally once every night Active 1 tablet Macrobid [facility] [address]-41 100 mg Orally every 12 hrs July 31, 2015 August 07, 2015 Active 1 capsule with food Bromfed DM [facility] [address]-94 30-2-10 MG/5ML Orally every 6 hrs prn July 31, 2015 August 10, 2015 Active 10 ml as needed Lipitor [facility] 59458538027 10 Orally Once a day Active 1 tablet [facility]artan [facility] [address]-56 100 mg orally Once a day Active 1 tablet Amlodipine Besylate [facility] [address]-58 5 MG orally once a day Active 1 tablet Alprazolam [facility] [address]-45 0.25 MG Orally once a day prn September 13, 2012 Active 1 tablet Lansoprazole [facility] [address]-06 30 mg Orally once a day Active 1 tablet HydrOXYzine HCl [facility] [address]-62 10 mg Orally Three times a day prn November 12, 2013 Active 1 tablet as needed Zithromax Z-Mathew [facility] [address]-40 250 MG Orally Once a day July 31, 2015 August 05, 2015 Active 2 tablets on the first day, then 1 tablet daily for 4 days Social History Social History Element Qualifiers Date Reported Occupation: . Retired July 31, 2015 children . 2 July 31, 2015 Ethnicity . Status , Is occitan your primary language? Yes July 31, 2015 Tobacco Use: . Are you a: never smoker July 31, 2015 Last Colonoscopy: . 2011July 31, 2015 Use of recreational / street drugs? . Answer: No July 31, 2015 Do you have pets? . Status: No July 31, 2015 Where or with whom do you live ? . Spouse July 31, 2015 Last Bone Density: . 2014July 31, 2015 Marital Status: . July 31, 2015 Caffeine intake? . Status: Yes, What type: Coffee, Tea, Soft Drinks July 31, 2015 Do you exercise? . Answer: No July 31, 2015 Flu Vaccine: . 2014July 31, 2015 Depression Screening: . negative July 31, 2015 Do you drink alcohol? . Status: Yes, Type: Rarely July 31, 2015 Vital Signs Date/Time: July 31, 2015 Weight 140 lbs Height 66 in Cardiac Monitoring Heart Rate 73 /min Blood Pressure Diastolic 64 mm Hg Blood Pressure Systolic 128 mm Hg Results URINE AUTO W/O SCOPE CBC With Differential/Platelet Summary Purpose eClinicalWorks Submission
--- OUTSIDE RECORDS SUMMARY | 2018-07-14 20:21 | XMS REPORT ---
Author Author Nita Arnett [facility] eClinicalWorks Address Unknown Phone Unavailable Care Team Providers Care Emergency Medical Service Manager Name Role Phone Nita Arnett CP Unavailable Allergies, Adverse Reactions, Alerts Substance Reaction Event Type Morphine Sulfate Info Not Available Drug Allergy Aspir-81 Info Not Available Drug Allergy Encounters Encounter Location Date Unknown [facility] Mar 11, 2013 Unknown [facility] August 13, 2013 [email or web address] [facility] November 21, 2013 Eye swelling [facility] November 12, 2013 Unknown [facility] Feb 15, 2013 RASH [facility] Feb 11, 2013 depomedrol 120/Decadron 4mg IM [facility] Feb 15, 2013 [facility] Feb 17, 2014 4 week follow up [facility] September 23, 2014 Unknown [facility] September 02, 2014 MED REFILL/ SHOULDER PAIN [facility] November 04, 2013 [facility] Feb 25, 2013 Unknown [facility] August 08, 2014 Unknown [facility] August 26, 2014 Refill [facility] Apr 23, 2014 Unknown [facility] July 22, 2014 physical exam [facility] Apr 14, 2015 Needs call back from Medical Staff [facility] Mar 17, 2014 RESULTS [facility] Apr 08, 2014 US/THYROID DR.G Rendon [facility] Feb 26, 2014 2 week follow up /ECHO RESULTS [facility] Mar 12, 2014 question [facility] August 27, 2014 Problems Problem Type Condition ICD-9 Code Onset Dates Condition Status Problem Goiter E04.9 Active Problem Nodular goiter 241.9 Active Problem Thyroid nodule 241.0 Active Problem 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 Assessment Insomnia G47.00 Active Problem GERD (gastroesophageal reflux disease) K21.9 Active Assessment Other pruritus L29.8 Active Assessment Anxiety F41.9 Active Problem Insomnia G47.00 Active Problem Anxiety F41.9 Active Problem Hyperlipidemia, unspecified E78.5 Active Problem Vertigo R42 Active Problem Other pruritus L29.8 Active Assessment Generalized anxiety disorder F41.1 Active Assessment Hyperlipidemia, unspecified E78.5 Active Assessment Vertigo R42 Active Assessment GERD (gastroesophageal reflux disease) K21.9 Active Assessment 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 Problem Generalized anxiety disorder F41.1 Active Assessment Benign essential tremor G25.0 Active Problem Benign essential hypertension I10 Active Assessment Annual physical exam Z00.00 Active Assessment Benign essential hypertension I10 Active Problem Benign essential tremor G25.0 Active Medications Medication Code System Code Instructions Start Date End Date Status Dosage Lansoprazole [facility] [address]-21 30 mg Orally once a day Active 1 tablet Amlodipine Besylate [facility] [address]-41 5 MG orally once a day Active 1 tablet Zolpidem Tartrate [facility] [address]-30 10 mg orally once every night as needed Dec 26, 2012 Active 1 tablet Lipitor [facility] 97510882334 10 Orally Once a day Active 1 tablet Antivert [facility] [address]-82 25 MG Orally tid as needed for dizziness Mar 17, 2014 Active 1 tablet Clonidine HCl [facility] [address]-72 0.1 MG Orally once every night Active 1 tablet Alprazolam [facility] [address]-54 0.25 MG Orally daily as needed September 13, 2012 Active 1 tablet HydrOXYzine HCl [facility] [address]-53 10 mg Orally Three times a day prn November 12, 2013 Active 1 tablet as needed Klonopin [facility] [address]-61 1 MG Orally Twice a day August 26, 2014 Inactive 1/2 half tablet Antivert [facility] [address]-39 25 MG Orally three times a day (tid) as needed (prn) Active 1 tablet as needed Losartan Potassium [facility] [address]-39 100 mg orally Once a day Active [...] 2015 Occupation: . Retired Apr 14, 2015 Vital Signs Date/Time: Apr 14, 2015 Weight 143 lbs Height 66 in Cardiac Monitoring Heart Rate 62 /min Blood Pressure Diastolic 82 mm Hg Blood Pressure Systolic 140 mm Hg Summary Purpose eClinicalWorks Submission
--- OUTSIDE RECORDS SUMMARY | 2018-07-14 20:21 | XMS REPORT ---
Author Author Katarzyna Hodgson [facility] eClinicalWorks Address Unknown Phone Unavailable Care Team Providers Care Sharepoint Net Developer Name Role Phone Katarzyna Hodgson Unavailable Encounters Encounter Location Date Unknown [facility] Mar 11, 2013 Unknown [facility] August 13, 2013 [email or web address] [facility] November 21, 2013 Eye swelling [facility] November 12, 2013 Unknown [facility] Feb 15, 2013 RASH [facility] Feb 11, 2013 depomedrol 120/Decadron 4mg IM [facility] Feb 15, 2013 [facility] Feb 17, 2014 MED REFILL/ SHOULDER PAIN [facility] November 04, 2013 [facility] Feb 25, 2013 Needs call back from Medical Staff [facility] Mar 17, 2014 RESULTS [facility] Apr 08, 2014 US/THYROID DR.G Rendon [facility] Feb 26, 2014 2 week follow up /ECHO RESULTS [facility] Mar [...] Date End Date Status Dosage Antivert [facility] [address]-08 25 MG Orally tid as needed for dizziness Mar 17, 2014 Active 1 tablet Social History Social History [...]
--- OUTSIDE RECORDS SUMMARY | 2018-07-14 20:21 | XMS REPORT ---
Author Author Tamy Rivers [facility] eClinicalWorks Address Unknown Phone Unavailable Care Team Providers Care Chicken Picker Name Role Phone Silvestre Tamy REED Unavailable Allergies, Adverse Reactions, Alerts Substance Reaction Event Type Morphine Sulfate Info Not Available Drug Allergy Aspir-81 Info Not Available Drug Allergy Encounters Encounter Location Date [facility] Feb 17, 2014 Unknown [facility] August 08, 2014 Unknown [facility] August 26, 2014 Refill [facility] Apr 23, 2014 Unknown [facility] July 22, 2014 Needs call back from Medical Staff [facility] Mar 17, 2014 RESULTS [facility] Apr 08, 2014 US/THYROID DR[facility]G [facility] Feb 26, 2014 2 week follow up /ECHO RESULTS [facility] Mar 12, 2014 question [facility] August 27, 2014 Unknown [facility] Mar 11, 2013 Unknown [facility] August 13, 2013 [email or web address] [facility] November 21, 2013 Eye swelling [facility] November 12, 2013 Unknown [facility] Feb 15, 2013 RASH [facility] Feb 11, 2013 depomedrol 120/Decadron 4mg IM [facility] Feb 15, 2013 4 week follow up [facility] September 23, 2014 Unknown [facility] September 02, 2014 MED REFILL/ SHOULDER PAIN [facility] November 04, 2013 [facility] Feb 25, 2013 stomach virus? chills [facility] July 07, 2015 physical exam [facility] Apr 14, 2015 Unknown [facility] Apr 21, 2015 Refill [facility] May 04, 2015 Unknown [facility] July 07, 2015 Problems Problem Type Condition ICD-9 Code Onset Dates Condition Status Problem Goiter E04.9 Active Problem Nodular goiter 241.9 Active Problem Thyroid nodule 241.0 Active Problem 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 Assessment Prediabetes R73.09 Active Problem GERD (gastroesophageal reflux disease) K21.9 Active Assessment Anxiety F41.9 Active Assessment Gastroenteritis K52.9 Active Problem Insomnia G47.00 Active Problem Anxiety F41.9 Active Problem Hyperlipidemia, unspecified E78.5 Active Problem Vertigo R42 Active Problem Other pruritus L29.8 Active Assessment GERD (gastroesophageal reflux disease) K21.9 Active Assessment Insomnia G47.00 Active Assessment Cough R05 Active Assessment Abdominal pain R10.9 Active Assessment Hyperlipidemia, unspecified E78.5 Active Problem Generalized anxiety disorder F41.1 Active Assessment Generalized anxiety disorder F41.1 Active Problem Benign essential hypertension I10 Active Assessment Lower respiratory tract infection J22 Active Assessment Benign essential hypertension I10 Active Problem Benign essential tremor G25.0 Active Medications Medication Code System Code Instructions Start Date End Date Status Dosage Antivert [facility] [address]-41 25 MG Orally tid as needed for dizziness Mar 17, 2014 Active 1 tablet Alprazolam [facility] [address]-23 0.25 MG Orally once a day prn September 13, 2012 Active 1 tablet Clonidine HCl [facility] [address]-23 0.1 MG Orally once every night Active 1 tablet Losartan Potassium [facility] [address]-80 100 mg orally Once a day Active 1 tablet Zolpidem Tartrate [facility] [address]-93 10 mg orally once every night as needed Dec 26, 2012 Active 1 tablet HydrOXYzine HCl [facility] [address]-29 10 mg Orally Three times a day prn November 12, 2013 Active 1 tablet as needed Medrol (Mathew) [facility] [address]-71 4 mg Orally as directed July 08, 2015 July 14, 2015 Active as directed Levaquin [facility] [address]-53 500 mg Orally Once a day July 07, 2015 July 17, 2015 Active 1 tablet Amlodipine Besylate [facility] [address]-97 5 MG orally once a day Active 1 tablet Lansoprazole [facility] [address]-43 30 mg Orally once a day Active 1 tablet Lipitor [facility] 85750373722 10 Orally Once a day Active 1 tablet Social History Social History Element Qualifiers Date Reported Occupation: . Retired July 09, 2015 children . 2 July 09, 2015 Ethnicity . Status , Is korean your primary language? Yes July 09, 2015 [...] July 09, 2015 Vital Signs Date/Time: July 07, 2015 Weight 140 lbs Height 66 in Temperature 98.4 F Cardiac Monitoring Heart Rate 69 /min Blood Pressure Diastolic 70 mm Hg Blood Pressure Systolic 130 mm Hg Results CBC Comp. Metabolic Panel (14) Summary Purpose eClinicalWorks Submission
--- OUTSIDE RECORDS SUMMARY | 2018-07-14 20:21 | XMS REPORT ---
Author Author Katarzyna Hodgson [facility] eClinicalWorks Address Unknown Phone Unavailable Care Team Providers Care Senior Web Applications Developer Name Role Phone Katarzyna Hodgson Unavailable Encounters Encounter Location Date Unknown [facility] Mar 11, 2013 Unknown [facility] August 13, 2013 [email or web address] [facility] November 21, 2013 Eye swelling [facility] November 12, 2013 Unknown [facility] Feb 15, 2013 RASH [facility] Feb 11, 2013 depomedrol 120/Decadron 4mg IM [facility] Feb 15, 2013 [facility] Feb 17, 2014 MED REFILL/ SHOULDER PAIN [facility] November 04, 2013 [facility] Feb 25, 2013 Refill [facility] Apr 23, 2014 Needs call back from Medical Staff [facility] Mar 17, 2014 RESULTS [facility] Apr 08, 2014 US/THYROID DR.G Rendon [facility] Feb 26, 2014 2 week follow up /ECHO RESULTS [facility] Mar [...] Date End Date Status Dosage Antivert [facility] [address]-61 25 MG Orally three times a day [...] 2014 Occupation: . Retired Apr 08, 2014 Summary Purpose eClinicalWorks Submission
--- OUTSIDE RECORDS SUMMARY | 2018-07-14 20:21 | XMS REPORT ---
Author Author Nita Ohara Organization [employer] Address Unknown Phone Unavailable Care Team Providers Care Filling Technician Name Role Phone Nita Ohara Unavailable Encounters Encounter Location Date Day [facility] Feb 17, 2014 Unknown [facility] August 08, 2014 Unknown [facility] August 26, 2014 Refill [facility] Apr 23, 2014 Unknown [facility] July 22, 2014 Needs call back from Medical Staff [facility] Mar 17, 2014 RESULTS [facility] Apr 08, 2014 US/THYROID DR[facility]G [facility] Feb 26, 2014 2 week follow up /ECHO RESULTS [facility] Mar 12, 2014 question [facility] August 27, 2014 Unknown [facility] Mar 11, 2013 Unknown [facility] August 13, 2013 [email or web address] [facility] November 21, 2013 Eye swelling [facility] November 12, 2013 Unknown [facility] Feb 15, 2013 RASH [facility] Feb 11, 2013 depomedrol 120/Decadron 4mg IM [facility] Feb 15, 2013 4 week follow up [facility] September 23, 2014 Unknown [facility] September 02, 2014 MED REFILL/ SHOULDER PAIN [facility] November 04, 2013 HOSPITAL [facility] Feb 25, 2013 stomach virus? chills [facility] July 07, 2015 follow up [facility] July 09, 2015 Unknown [facility] July 16, 2015 physical exam [facility] Apr 14, 2015 Unknown [facility] Apr 21, 2015 Refill [facility] May 04, 2015 Unknown [facility] July 07, [...] 17, 2015 Ethnicity . Status , Is sudanese your primary language? Yes July 17, 2015 [...] Status: Yes, Type: Rarely July 17, 2015 Summary Purpose [employer]Works Submission
--- OUTSIDE RECORDS SUMMARY | 2018-07-14 20:21 | XMS REPORT ---
Author Author Katarzyna Hodgson [facility] [employer] Address Unknown Phone Unavailable Care Team Providers Care Medical Library Assistant Name Role Phone Katarzyna Hodgson CP Unavailable Allergies, Adverse Reactions, Alerts Substance Reaction Event Type Morphine Sulfate Info Not Available Drug Allergy Aspir-81 Info Not Available Drug Allergy Encounters Encounter Location Date Unknown [facility] Mar 11, 2013 Unknown [facility] August 13, 2013 [email or web address] [facility] November 21, 2013 Eye swelling [facility] November 12, 2013 Unknown [facility] Feb 15, 2013 RASH [facility] Feb 11, 2013 depomedrol 120/Decadron 4mg IM [facility] Feb 15, 2013 [facility] Feb 17, 2014 MED REFILL/ SHOULDER PAIN [facility] November 04, 2013 [facility] Feb 25, 2013 Needs call back from Medical Staff [facility] Mar 17, 2014 RESULTS [facility] Apr 08, 2014 US/THYROID DR.G Rendon [facility] Feb 26, 2014 2 week follow up /ECHO RESULTS [facility] Mar 12, 2014 Problems Problem Type Condition ICD-9 Code Onset Dates Condition Status Assessment Anxiety 300.00 Active Problem Insomnia (Nonorganic sleep disorder, 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 Assessment Hospital discharge follow-up V67.59 Active Problem Benign essential tremor 333.1 Active Problem HTN (hypertension), benign 401.1 Active Problem Goiter 240.9 Active Problem Anxiety 300.00 Active Problem Generalized anxiety disorder 300.02 Active Problem 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 Problem GERD (gastroesophageal reflux disease) 530.81 Active Assessment Cellulitis of hand 682.4 Active Assessment HTN (hypertension), benign 401.1 Active Assessment Benign essential tremor 333.1 Active Assessment GERD (gastroesophageal reflux disease) 530.81 Active Assessment Goiter 240.9 Active Assessment Insomnia (Nonorganic sleep disorder, 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 Medications Medication Code System Code Instructions Start Date End Date Status Dosage Alprazolam [facility] [address]-20 0.25 MG Orally daily as needed September 13, 2012 Active 1 tablet Zolpidem Tartrate [facility] [address]-04 10 mg PO once every night as needed Dec 26, 2012 Active 1 tablet Losartan Potassium [facility] [address]-83 100 mg orally Once a day Active 1 tablet Amlodipine Besylate [facility] [address]-16 5 MG orally once a day Active 1 tablet Clonidine HCl [facility] [address]-55 0.1 MG Orally once every night Active 1 tablet Zofran [facility] [address]-51 4 MG Orally Active Unknown Neurontin [facility] [address]-98 100 mg Orally Three times a day Feb 25, 2013 Active 1 capsule Lansoprazole [facility] [address]-07 30 mg Orally once a day Active 1 tablet HydrOXYzine HCl [facility] [address]-41 10 mg Orally Three times a day November 12, 2013 Active 1 tablet as needed Antivert [facility] [address]-57 25 MG Orally three times a day [...] stroke Apr 08, 2014 Vital Signs Date/Time: Feb 17, 2014 Weight 141 lbs Height 66 in Temperature 98.8 F Cardiac Monitoring Heart Rate 68 /min Blood Pressure Diastolic 72 mm Hg Blood Pressure Systolic 140 mm Hg Summary Purpose eClinicalWorks Submission
--- OUTSIDE RECORDS SUMMARY | 2018-07-14 20:22 | XMS REPORT ---
Author Author Nita Ohara Organization [employer] Address Unknown Phone Unavailable Care Team Providers Care Developmental Mathematics Professor Name Role Phone Nita Ohara Unavailable Encounters Encounter Location Date [facility] Feb 17, 2014 Unknown [facility] September 23, 2015 UTI and Pneumonia [facility] July 31, 2015 still has UTI [facility] July 28, 2015 2 week follow up [facility] November 05, 2015 Unknown [facility] August 08, 2014 Refill [facility] Mar 09, 2016 Unknown [facility] August 26, 2014 Unknown [facility] October 07, 2015 Refill [facility] Apr 23, 2014 3 MONTH FOLLOW UP [facility] October 21, 2015 Unknown [facility] July 22, 2014 Needs call back from Medical Staff [facility] Mar 17, 2014 RESULTS [facility] Apr 08, 2014 Unknown [facility] Jun 07, 2016 US/THYROID DR.G [facility] Feb 26, 2014 2 week follow up /ECHO RESULTS [facility] Mar 12, 2014 question [facility] August 27, 2014 Unknown [facility] Mar 11, 2013 Unknown [facility] August 13, 2013 [email or web address] [facility] November 21, 2013 Eye swelling [facility] November 12, 2013 Unknown [facility] Feb 15, 2013 RASH [facility] Feb 11, 2013 depomedrol 120/Decadron 4mg IM [facility] Feb 15, 2013 4 week follow up [facility] September 23, 2014 Unknown [facility] September 02, 2014 MED REFILL/ SHOULDER PAIN [facility] November 04, 2013 [facility] Feb 25, 2013 stomach virus? chills [facility] July 07, 2015 follow up [facility] July 09, 2015 Unknown [facility] July 16, 2015 2 week follow up [facility] July 17, 2015 physical exam [facility] Apr 14, 2015 Unknown [facility] Apr 21, 2015 Refill [facility] May 04, 2015 Unknown [facility] July 07, 2015 Problems Problem Type Condition ICD-9 Code Onset Dates Condition Status Problem Nodular [...] unspecified intestinal tract location K57.90 Active Assessment Insomnia G47.00 Active Problem Generalized anxiety disorder F41.1 Active Problem Benign essential hypertension I10 Active Problem Hiatal hernia K44.9 Active Problem Benign essential tremor G25.0 Active Problem Dysphagia, unspecified type R13.10 Active Problem Goiter E04.9 Active Medications Medication Code System Code Instructions Start Date End Date Status Dosage Zolpidem Tartrate [facility] [address]-23 10 mg orally once every night as needed Dec 26, 2012 Active 1 tablet Social History Social History Element Qualifiers Date Reported Occupation: . Retired Jun 01, 2016 children . 2 Jun 01, 2016 Ethnicity . Status , Is montenegrin your primary language? Yes Jun 01, 2016 Tobacco Use: . Are you a: never smoker Jun 01, 2016 Last Colonoscopy: . 10/17/15-normal Jun 01, 2016 Use of recreational / street drugs? . Answer: No Jun 01, 2016 Do you have pets? . Status: No Jun 01, 2016 Where or with whom do you live ? . Spouse Jun 01, 2016 Fall Risk: . none in the past year Jun 01, 2016 Marital Status: . Jun 01, 2016 Last Bone Density: . unknown, possible 2016 Jun 01, 2016 Caffeine intake? . Status: Yes, What type: Coffee, Tea, Soft Drinks Jun 01, 2016 Do you exercise? . Answer: No Jun 01, 2016 Flu Vaccine: . 2014Jun 01, 2016 Depression Screening: . negative Jun 01, 2016 Do you drink alcohol? . Status: Yes, Type: Rarely Jun 01, 2016 Summary Purpose eClinicalWorks Submission
--- OUTSIDE RECORDS SUMMARY | 2018-07-14 20:22 | XMS REPORT ---
Author Author Tamy Rivers [facility] [employer]Works Address Unknown Phone Unavailable Care Team Providers Care Boatwright Name Role Phone Tamy Rivers CP Unavailable Encounters Encounter Location Date [facility] Feb 17, 2014 still has UTI [facility] July 28, 2015 Unknown [facility] August 08, 2014 Unknown [facility] August 26, 2014 Refill [facility] Apr 23, 2014 Unknown [facility] July 22, 2014 Needs call back from Medical Staff [facility] Mar 17, 2014 RESULTS [facility] Apr 08, 2014 US/THYROID DR[facility]G [facility] Feb 26, 2014 2 week follow up /ECHO RESULTS [facility] Mar 12, 2014 question [facility] August 27, 2014 Unknown [facility] Mar 11, 2013 Unknown [facility] August 13, 2013 [email or web address] [facility] November 21, 2013 Eye swelling [facility] November 12, 2013 Unknown [facility] Feb 15, 2013 RASH [facility] Feb 11, 2013 depomedrol 120/Decadron 4mg IM [facility] Feb 15, 2013 4 week follow up [facility] September 23, 2014 Unknown [facility] September 02, 2014 MED REFILL/ SHOULDER PAIN [facility] November 04, 2013 HOSPITAL [facility] Feb 25, 2013 stomach virus? chills [facility] July 07, 2015 follow up [facility] July 09, 2015 Unknown [facility] July 16, 2015 2 week follow up [facility] July 17, 2015 physical exam [facility] Apr 14, 2015 Unknown [facility] Apr 21, 2015 Refill [facility] May 04, 2015 Unknown [facility] July 07, 2015 Problems Problem Type Condition ICD-9 Code Onset Dates Condition Status Problem Thyroid nodule 241.0 Active Problem Hyperlipidemia, unspecified E78.5 Active Problem Nodular goiter 241.9 Active Problem Insomnia G47.00 Active Problem 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 Retired July 17, 2015 children . 2 July 17, 2015 Ethnicity . Status , Is pashto your primary language? Yes July 17, 2015 [...]
--- OUTSIDE RECORDS SUMMARY | 2018-07-14 20:22 | XMS REPORT | CCD ---
Author Author Auto Generated Organization [facility] Address Unknown Phone Unavailable Care Team Providers Care Die Cleaner Name Role Phone Katarzyna Hodgson CP Allergies, Adverse Reactions, Alerts Substance Reaction Status aspirin Active morphine Active Problem List Condition Effective Dates Status Degenerative disc disease Resolved Hiatal hernia Resolved Hypertension Resolved Impaired glucose tolerance Resolved Neuropathy Resolved Medications Medication Instructions Start Date End Date Status meclizine 25 mg oral 25 mg, 1 tab, PO, TID, 90 tab, 02/23/2013 Ordered tablet Substitution Allowed, TAB losartan 50 mg oral 100 mg, 2 tab, PO, QAM, 30 tab, 02/23/2013 Ordered tablet Substitution Allowed, TAB fluocinonide topical 1 appl, TOP, BID, 60 gm, 02/23/2013 Ordered 0.05% cream Substitution Allowed, CRM clonidine 0.1 mg 0.1 mg, 1 tab, PO, Daily, PRN, 30 02/23/2013 Ordered oral tablet tab, Other -See Comment | SBP>135, Substitution Allowed, TAB clonidine 0.1 mg 0.1 mg, PO, Daily, PRN, 60 tab, as 02/21/2013 Suspended oral tablet needed for diastolic BP > 90, Substitution Allowed amLODipine 5 mg oral 5 mg, 1 tab, PO, QPM, 30 tab, 02/23/2013 Ordered tablet Substitution Allowed, TAB aspirin 81 mg 1 tab, Route: PO, ONCE, Dosing 02/21/2013 02/21/2013 Completed tablet, chewable Weight 68.182, kg, Start date: 02/21/13 11:21:00, Stop date: 02/21/13 11:21:00 meclizine 25 mg, Route: PO, Drug form: TAB, 02/21/2013 02/21/2013 Completed ONCE, Dosing Weight 68.182, kg, Priority: STAT, Start date: 02/21/13 11:20:00, Stop date: 02/21/13 11:20:00 SoluMedrol 100 mg, Route: IV, ONCE, Dosing 02/21/2013 02/21/2013 Completed Weight 68.182, kg, Start date: 02/21/13 11:21:00, Stop date: 02/21/13 11:21:00 meclizine 25 mg oral 25 mg, 1 tab, CHEW, TID, PRN, 60 02/22/2013 Suspended tablet, chewable tab, for motion sickness, Substitution Allowed, CHEWTAB Pepcid 20 mg, 1 tab, Route: PO, Drug form: 02/22/2013 02/23/2013 Discontinued TAB, BID, Dosing Weight 68.182, kg, Start date: 02/22/13 9:00:00, Duration: 30 day, Stop date: 03/23/13 17:00:00(Same as: Pepcid) Saline Flush 0.9% 5 ml, Route: IVP, Drug Form: INJ, 02/21/2013 02/23/2013 Discontinued Dosing Weight 68.182, kg, PRN, PRN Line Flush, Start date: 02/21/13 17:06:00, Duration: 30 day, Stop date: 03/23/13 16:05:00Same as: BD Posiflush Sterile aspirin 325 mg 325 mg, Route: PO, Drug form: TAB, 02/22/2013 02/21/2013 Deleted tablet Daily, Dosing Weight 68.182, kg, Start date: 02/22/13 9:00:00, Duration: 30 day, Stop date: 03/23/13 9:00:00 ondansetron 4 mg, 2 mL, Route: IVP, Drug form: 02/21/2013 02/23/2013 Discontinued INJ, Q8H, Dosing Weight 68.182, kg, PRN Nausea & Vomiting, Start date: 02/21/13 17:06:00, Duration: 30 day, Stop date: 03/23/13 17:05:00(Same as: Zofran) acetaminophen 650 mg, 20.3 mL, Route: PO, Drug 02/21/2013 02/23/2013 Discontinued form: LIQ, Q4H, Dosing Weight 68.182, kg, PRN Pain 1-3/Temp > 100.4 F, Start date: 02/21/13 17:06:00, Duration: 30 day, Stop date: 03/23/13 17:05:00Max [id number]/day (4 gm/day). (Same as: Tylenol) docusate 100 mg, 1 cap, Route: PO, Drug 02/21/2013 02/23/2013 Discontinued form: CAP, BID, Dosing Weight 68.182, kg, PRN Constipation, Start date: 02/21/13 17:06:00, Duration: 30 day, Stop date: 03/23/13 17:05:00(Same as: Colace) (Do Not Crush) SoluMedrol 100 mg, 1.6 mL, Route: IVP, Drug 02/22/2013 02/22/2013 Completed form: INJ, ONCE, Dosing Weight 68.182, kg, Priority: NOW, Start date: 02/22/13 8:46:00, Stop date: 02/22/13 8:46:00(Same as:Solu-Medrol, A-Methapred) Antivert 25 mg, 1 tab, Route: PO, Drug form: 02/22/2013 02/23/2013 Discontinued TAB, TID, Dosing Weight 68.182, kg, Start date: 02/22/13 9:00:00, Duration: 30 day, Stop date: 03/23/13 17:00:00(Same as: Antivert) fluocinonide topical 1 appl, TOP, BID, 15 gm, 02/21/2013 Suspended 0.05% cream Substitution Allowed, to affected area, CRM to affected area zolpidem 10 mg oral 10 mg, 1 tab, PO, Bedtime, PRN, for 02/21/2013 Suspended tablet sleep, Substitution Allowed, TAB zolpidem 10 mg, 1 tab, Route: PO, Drug form: 02/22/2013 02/23/2013 Discontinued TAB, Bedtime, Dosing Weight 68.182, kg, PRN Insomnia, Start date: 02/22/13 13:19:00, Duration: 30 day, Stop date: 03/24/13 13:18:00(Same As: Ambien) amLODipine 5 mg oral 5 mg, 1 tab, PO, QPM, 30 tab, 02/21/2013 Suspended tablet Substitution Allowed, TAB losartan 100 mg, 2 tab, Route: PO, Drug 02/23/2013 02/23/2013 Discontinued form: TAB, QAM, Dosing Weight 68.182, kg, Start date: 02/23/13 9:00:00, Duration: 30 day, Stop date: 03/24/13 9:00:00(Same as: Cozaar) fluocinonide topical 1 appl, Route: TOP, BID, Drug form: 02/22/2013 02/23/2013 Discontinued 0.05% cream CRM, Start date: 02/22/13 17:00:00, Duration: 30 day, Stop date: 03/24/13 9:00:00(Same as: Lidex) lansoprazole 30 mg, Route: PO, Drug form: DRC, 02/23/2013 02/22/2013 Deleted QAM, Dosing Weight 68.182, kg, Start date: 02/23/13 9:00:00, Duration: 30 day, Stop date: 03/24/13 9:00:00 clonidine 0.1 mg 0.1 mg, 1 tab, Route: PO, Drug 02/22/2013 02/23/2013 Discontinued oral tablet form: TAB, Daily, Dosing Weight 68.182, kg, PRN Other -See Comment, Start date: 02/22/13 13:19:00, Duration: 30 day, Stop date: 03/24/13 13:18:00, SBP>135(Same As: Catapres) amLODipine 5 mg, 1 tab, Route: PO, Drug form: 02/22/2013 02/23/2013 Discontinued TAB, QPM, Dosing Weight 68.182, kg, Start date: 02/22/13 17:00:00, Duration: 30 day, Stop date: 03/23/13 17:00:00(Same as: Norvasc) losartan 100 mg oral 100 mg, 1 tab, PO, QAM, 30 tab, 02/21/2013 Suspended tablet Substitution Allowed, TAB lansoprazole 30 mg 30 mg, 1 cap, PO, QAM, 30 cap, 02/21/2013 Suspended oral delayed release Substitution Allowed capsule meclizine 25 mg, 1 tab, Route: PO, Drug form: 02/21/2013 02/22/2013 Discontinued TAB, QID, Dosing Weight 68.182, kg, Priority: STAT, Start date: 02/21/13 17:06:00, Duration: 30 day, Stop date: 03/23/13 17:00:00(Same as: Antivert) Protonix 40 mg, 1 tab, Route: PO, Drug form: 02/23/2013 02/23/2013 Discontinued ECTAB, Before Breakfast, Start date: 02/23/13 7:30:00, Duration: 30 day, Stop date: 03/24/13 7:30:00Tablet should not be chewed or crushed.(Same as: Protonix) atropine 0.5 mg, 5 mL, Route: IVP, Drug 02/21/2013 02/23/2013 Discontinued form: INJ, PRN, PRN Bradycardia, Start date: 02/21/13 17:59:00, Duration: 30 day, Stop date: 03/23/13 16:58:00 nitroglycerin 0.4 mg 0.4 mg, 1 tab, Route: SL, Drug 02/21/2013 02/23/2013 Discontinued sublingual tablet form: TAB, Q5Min, PRN Chest Pain, Start date: 02/21/13 17:59:00, Duration: 30 day, Stop date: 03/23/13 16:58:00(Same as:Nitroquick, Nitrostat)"Do Not Crush" Sublingual tablet zolpidem 10 mg oral 10 mg, 1 tab, PO, Bedtime, PRN, 30 02/23/2013 Ordered tablet tab, Insomnia, Substitution Allowed, TAB Vital Signs Most recent to oldest [Reference Range]: 1 2 3 Height 170.18 cm (02/21/2013 10:49:00) Temperature Oral [96.4-99.1 DegF] 98.2 DegF (02/23/2013 08:00:00) 97.9 DegF (02/23/2013 04:00:00) 97.9 DegF (02/23/2013 00:00:00) Systolic Blood Pressure [90-140 mmHg] 170 mmHg *HI* (02/23/2013 08:00:00) 153 mmHg *HI* (02/23/2013 04:00:00) 144 mmHg *HI* (02/23/2013 00:00:00) Diastolic Blood Pressure [60-90 mmHg] 78 mmHg (02/23/2013 08:00:00) 67 mmHg (02/23/2013 04:00:00) 62 mmHg (02/23/2013 00:00:00) Respiratory Rate [14-20 BRMIN] 18 BRMIN (02/23/2013 08:00:00) 18 BRMIN (02/23/2013 04:00:00) 18 BRMIN (02/23/2013 00:00:00) Peripheral Pulse Rate [60-100 bpm] 63 bpm (02/23/2013 08:00:00) 67 bpm (02/23/2013 04:00:00) 74 bpm (02/23/2013 00:00:00) Weight 68.182 kg (02/21/2013 10:49:00) Results URINALYSIS Most recent to oldest [Reference Range]: 1 UA Turbidity [Clear] Clear (02/21/2013 13:15:52) UA Color Ltyellow *NA* (02/21/2013 13:15:52) UA pH [5.0-8.0] 7.0 (02/21/2013 13:15:52) UA Spec Grav [<=1.030] 1.013 (02/21/2013 13:15:52) UA Glucose [Negative mg/dL] Negative mg/dL *NA* (02/21/2013 13:15:52) UA Blood [Negative] Negative (02/21/2013 13:15:52) UA Ketones [Negative mg/dL] Negative mg/dL *NA* (02/21/2013 13:15:52) UA Protein [Negative mg/dL] Negative mg/dL (02/21/2013 13:15:52) UA Urobilinogen [0.1-1.0 mg/dL] <=1.0 mg/dL *NA* (02/21/2013 13:15:52) UA Bili [Negative] Negative *NA* (02/21/2013 13:15:52) UA Leuk Est [Negative] Negative (02/21/2013 13:15:52) UA Nitrite [Negative] Negative (02/21/2013 13:15:52) UA WBC [0-5 /HPF] 2 /HPF (02/21/2013 13:15:52) UA RBC [0-2 /HPF] 1 /HPF (02/21/2013 13:15:52) UA Sq Epi [Few /LPF] Occasional /LPF *NA* (02/21/2013 13:15:52) CHEMISTRY Most recent to oldest [Reference Range]: 1 Sodium Lvl [135-145 mEq/L] 145 mEq/L (02/21/2013 11:05:00) Potassium Lvl [3.5-5.1 mEq/L] 3.8 mEq/L (02/21/2013 11:05:00) Chloride Lvl [95-109 mEq/L] 108 mEq/L (02/21/2013 11:05:00) CO2 [24-32 mEq/L] 29 mEq/L (02/21/2013 11:05:00) AGAP [10.0-20.0 mEq/L] 11.8 mEq/L (02/21/2013 11:05:00) Creatinine Lvl [0.5-1.4 mg/dL] 0.9 mg/dL (02/21/2013 11:05:00) eGFR 61 mL/min/1.73m2 1 *NA* (02/21/2013 11:05:00) BUN [7-22 mg/dL] 22 mg/dL (02/21/2013 11:05:00) B/C Ratio [6-25] 24 (02/21/2013 11:05:00) Glucose Lvl [70-99 mg/dL] 108 mg/dL 2 *HI* (02/21/2013 11:05:00) Total Protein [6.4-8.4 g/dL] 7.2 g/dL (02/21/2013 11:05:00) Albumin Lvl [3.5-5.0 g/dL] 3.9 g/dL (02/21/2013 11:05:00) Globulin [2.0-4.0 g/dL] 3.3 g/dL (02/21/2013 11:05:00) A/G Ratio [0.7-1.6] 1.2 (02/21/2013 11:05:00) Calcium Lvl [8.5-10.5 mg/dL] 8.9 mg/dL (02/21/2013 11:05:00) ALT [0-65 unit/L] 22 unit/L (02/21/2013 11:05:00) AST [0-37 unit/L] 14 unit/L (02/21/2013 11:05:00) Alk Phos [39-136 unit/L] 74 unit/L (02/21/2013:05:00) Bili Total [0.2-1.3 mg/dL] 0.2 mg/dL (02/21/2013:05:00) 1Result Comment: The eGFR is calculated using [...] from the National Kidney Disease Education Program ( NKDEP) which additionally recommends that when the eGFR is used in patients with extremes of body mass index for purposes of drug dosing, the eGFR should be mul tiplied by the estimated BMI. 2Interpretive Data: Adult reference range values reflect the clinical guidelines of the [place] [employer]. HEMATOLOGY Most recent to oldest [Reference Range]: 1 WBC [3.7-10.4 K/CMM] 8.8 K/CMM (02/21/2013:05:00) RBC [4.20-5.40 M/CMM] 4.23 M/CMM (02/21/2013:05:00) Hgb [12.0-16.0 g/dL] 12.1 g/dL (02/21/2013:05:00) Hct [36.0-48.0 %] 37.8 % (02/21/2013:05:00) MCV [81.0-99.0 fL] 89.4 fL (02/21/2013:05:00) MCH [27.0-31.0 pg] 28.7 pg (02/21/2013:05:00) MCHC [32.0-36.0 g/dL] 32.1 g/dL (02/21/2013:05:00) RDW [11.5-14.5 %] 14.0 % (02/21/2013 11:05:00) Platelet [133-450 K/CMM] 221 K/CMM (02/21/2013 11:05:00) MPV [7.4-10.4 fL] 9.6 fL (02/21/2013 11:05:00) Segs [45.0-75.0 %] 73.8 % (02/21/2013:05:00) Lymphocytes [20.0-40.0 %] 19.2 % *LOW* (02/21/2013:05:00) Monocytes [2.0-12.0 %] 6.3 % (02/21/2013 11:05:00) Eosinophils [0.0-4.0 %] 0.5 % (02/21/2013:05:00) Basophils [0.0-1.0 %] 0.2 % (02/21/2013 11:05:00) Segs-Bands # [1.5-8.1 K/CMM] 6.5 K/CMM (02/21/2013 11:05:00) Lymphocytes # [1.0-5.5 K/CMM] 1.7 K/CMM (02/21/2013:05:00) Monocytes # [0.0-0.8 K/CMM] 0.6 K/CMM (02/21/2013 11:05:00) Eosinophils # [0.0-0.5 K/CMM] 0.0 K/CMM (02/21/2013 11:05:00) Basophils # [0.0-0.2 K/CMM] 0.0 K/CMM (02/21/2013 11:05:00)
--- OUTSIDE RECORDS SUMMARY | 2018-07-14 20:22 | XMS REPORT | CCD ---
Author Author Auto Generated Organization [facility] Address Unknown Phone Unavailable Care Team Providers Care High Voltage Electrician Name Role Phone Katarzyna Hodgson CP Allergies, [...] Duration: 30 day, Stop date: 03/23/13 17:05:00Max [id number]/day (4 gm/day). (Same as: Tylenol) docusate 100 [...] values reflect the clinical guidelines of the [place] [employer]. HEMATOLOGY Most recent to oldest [...]
--- OUTSIDE RECORDS SUMMARY | 2018-07-14 20:22 | XMS REPORT ---
Author Author Nita Ohara Organization [employer] Address Unknown Phone Unavailable Care Team Providers Care Industrial Trainer Name Role Phone Nita Ohara Unavailable Encounters Encounter Location Date [facility] Feb 17, 2014 Unknown [facility] September 23, 2015 UTI and Pneumonia [facility] July 31, 2015 still has UTI [facility] July 28, 2015 Unknown [facility] August 08, 2014 Unknown [facility] August 26, 2014 Unknown [facility] October 07, 2015 Refill [facility] Apr 23, 2014 Unknown [facility] July 22, 2014 Needs call back from Medical Staff [facility] Mar 17, 2014 RESULTS [facility] Apr 08, 2014 US/THYROID DR[facility]G [facility] Feb 26, 2014 2 week follow up /ECHO RESULTS [facility] Mar 12, 2014 question [facility] August 27, 2014 Unknown [facility] Mar 11, 2013 Unknown [facility] August 13, 2013 [email or web address] [facility] November 21, 2013 Eye swelling [facility] November 12, 2013 Unknown [facility] Feb 15, 2013 RASH [facility] Feb 11, 2013 depomedrol 120/Decadron 4mg IM [facility] Feb 15, 2013 4 week follow up [facility] September 23, 2014 Unknown [facility] September 02, 2014 MED REFILL/ SHOULDER PAIN [facility] November 04, 2013 [facility] Feb 25, 2013 stomach virus? chills [facility] July 07, 2015 follow up [facility] July 09, 2015 Unknown [facility] July 16, 2015 2 week follow up [facility] July 17, 2015 physical exam [facility] Apr 14, 2015 Unknown [facility] Apr 21, 2015 Refill [facility] May 04, 2015 Unknown [facility] July 07, [...] Problem Benign essential tremor G25.0 Active Problem Goiter E04.9 Active Social History Social History Element Qualifiers Date Reported Occupation: . Retired July 31, 2015 children . 2 July 31, 2015 Ethnicity . Status , Is luxembourgish your primary language? Yes July 31, 2015 [...] Status: Yes, Type: Rarely July 31, 2015 Summary Purpose [employer] Submission
--- OUTSIDE RECORDS SUMMARY | 2018-07-14 20:22 | XMS REPORT ---
Author Author Nita Ohara [facility] [employer] Address Unknown Phone Unavailable Care Team Providers Care Teacher Of The Deaf Name Role Phone [facility] Nita Orourke CP Unavailable Allergies, Adverse Reactions, Alerts Substance Reaction Event Type Morphine Sulfate Info Not Available Drug Allergy Aspir-81 Info Not Available Drug Allergy Encounters Encounter Location Date [facility] Feb 17, 2014 Unknown [facility] September 23, 2015 UTI and Pneumonia [facility] July 31, 2015 still has UTI [facility] July 28, 2015 2 week follow up [facility] November 05, 2015 Unknown [facility] August 08, 2014 Unknown [facility] August 26, 2014 Unknown [facility] October 07, 2015 Refill [facility] Apr 23, 2014 3 MONTH FOLLOW UP [facility] October 21, 2015 Unknown [facility] July 22, 2014 Needs call back from Medical Staff [facility] Mar 17, 2014 RESULTS [facility] Apr 08, 2014 US/THYROID [facility]G [facility] Feb 26, 2014 2 week follow up /ECHO RESULTS [facility] Mar 12, 2014 question [facility] August 27, 2014 Unknown [facility] Mar 11, 2013 Unknown [facility] August 13, 2013 [email or web address] [facility] November 21, 2013 Eye swelling [facility] November 12, 2013 Unknown [facility] Feb 15, 2013 RASH [facility] Feb 11, 2013 depomedrol 120/Decadron 4mg IM [facility] Feb 15, 2013 4 week follow up [facility] September 23, 2014 Unknown [facility] September 02, 2014 MED REFILL/ SHOULDER PAIN [facility] November 04, 2013 [facility] Feb 25, 2013 stomach virus? chills [facility] July 07, 2015 follow up [facility] July 09, 2015 Unknown [facility] July 16, 2015 2 week follow up [facility] July 17, 2015 physical exam [facility] Apr 14, 2015 Unknown [facility] Apr 21, 2015 Refill [facility] May 04, 2015 Unknown [facility] July [...] unspecified intestinal tract location K57.90 Active Assessment Sinusitis J32.9 Active Assessment Chronic hoarseness R49.0 Active Problem Generalized anxiety disorder F41.1 Active Problem Benign essential hypertension I10 Active Problem Hiatal hernia K44.9 Active Problem Benign essential tremor G25.0 Active Problem Dysphagia, unspecified type R13.10 Active Problem Goiter E04.9 Active Medications Medication Code System Code Instructions Start Date End Date Status Dosage Amlodipine Besylate [facility] [address]-79 5 MG orally once a day Active 1 tablet Losartan Potassium [facility] [address]-78 100 mg orally Once a day Active 1 tablet Lansoprazole [facility] [address]-94 30 mg Orally once a day Active 1 tablet Alprazolam [facility] [address]-32 0.25 MG Orally once a day prn September 13, 2012 Active 1 tablet Lipitor [facility] 55534854452 10 Orally Once a day Active 1 tablet Antivert [facility] [address]-08 25 MG Orally tid as needed for dizziness Mar 17, 2014 Active 1 tablet Oxybutynin Chloride [facility] [address]-39 5 MG Orally Twice a day Active 1 tablet Clonidine HCl [facility] [address]-65 0.1 MG Orally once every night Active 1 tablet Medrol (Mathew) Unknown 0 4 mg Orally as directed November 05, 2015 November 12, 2015 Active as directed HydrOXYzine HCl [facility] [address]-56 10 mg Orally Three times a day prn November 12, 2013 Active 1 tablet as needed Zolpidem Tartrate [facility] [address]-24 10 mg orally once every night as needed Dec 26, 2012 Active 1 tablet Social History Social History Element Qualifiers Date Reported Occupation: . Retired November 05, 2015 children . 2 November 05, 2015 Ethnicity . Status , Is marshallese your primary language? Yes November 05, 2015 Tobacco Use: . Are you a: never smoker November 05, 2015 Last Colonoscopy: . 10/17/15-normal November 05, 2015 Use of recreational / street drugs? . Answer: No November 05, 2015 Do you have pets? . Status: No November 05, 2015 Where or with whom do you live ? . Spouse November 05, 2015 Last Bone Density: . 2014November 05, 2015 Marital Status: . November 05, 2015 Caffeine intake? . Status: Yes, What type: Coffee, Tea, Soft Drinks November 05, 2015 Do you exercise? . Answer: No November 05, 2015 Flu Vaccine: . 2014November 05, 2015 Depression Screening: . negative November 05, 2015 Do you drink alcohol? . Status: Yes, Type: Rarely November 05, 2015 Family history Qualifier Description Comment Date Reported Maternal Grandmother Comment not available November 05, 2015 Paternal Grandmother Comment not available November 05, 2015 Siblings brother-hypertention, stroke November 05, 2015 Maternal Grandfather Comment not available November 05, 2015 Children Comment not available November 05, 2015 Father Comment not available November 05, 2015 Paternal Grandfather Comment not available November 05, 2015 Mother stroke November 05, 2015 Other: Comment not available November 05, 2015 Vital Signs Date/Time: November 05, 2015 Weight 137 lbs Height 66 in Cardiac Monitoring Heart Rate 78 /min Blood Pressure Diastolic 78 mm Hg Blood Pressure Systolic 150 mm Hg Summary Purpose [employer] Submission
--- OUTSIDE RECORDS SUMMARY | 2018-07-14 20:22 | XMS REPORT ---
Author Author Nita Ohara [facility] eClinicalWorks Address Unknown Phone Unavailable Care Team Providers Care Automotive Glass Installer Name Role Phone Rendon Nita Orourke CP Unavailable Allergies, Adverse Reactions, Alerts Substance Reaction Event Type Morphine Sulfate Info Not Available Drug Allergy Aspir-81 Info Not Available Drug Allergy Encounters Encounter Location Date [facility] Feb 17, 2014 Unknown [facility] September 23, 2015 UTI and Pneumonia [facility] July 31, 2015 still has UTI [facility] July 28, 2015 Unknown [facility] August 08, 2014 Unknown [facility] August 26, 2014 Unknown [facility] October 07, 2015 Refill [facility] Apr 23, 2014 3 MONTH FOLLOW UP [facility] October 21, 2015 Unknown [facility] July 22, 2014 Needs call back from Medical Staff [facility] Mar 17, 2014 RESULTS [facility] Apr 08, 2014 US/THYROID DR[facility]G [facility] Feb 26, 2014 2 week follow up /ECHO RESULTS [facility] Mar 12, 2014 question [facility] August 27, 2014 Unknown [facility] Mar 11, 2013 Unknown [facility] August 13, 2013 [email or web address] [facility] November 21, 2013 Eye swelling [facility] November 12, 2013 Unknown [facility] Feb 15, 2013 RASH [facility] Feb 11, 2013 depomedrol 120/Decadron 4mg IM [facility] Feb 15, 2013 4 week follow up [facility] September 23, 2014 Unknown [facility] September 02, 2014 MED REFILL/ SHOULDER PAIN [facility] November 04, 2013 HOSPITAL [facility] Feb 25, 2013 stomach virus? chills [facility] July 07, 2015 follow up [facility] July 09, 2015 Unknown [facility] July 16, 2015 2 week follow up [facility] July 17, 2015 physical exam [facility] Apr 14, 2015 Unknown [facility] Apr 21, 2015 Refill [facility] May 04, 2015 Unknown [facility] July 07, 2015 Problems Problem Type Condition ICD-9 Code Onset Dates Condition Status Problem Thyroid nodule 241.0 Active Problem Hyperlipidemia, unspecified E78.5 Active Problem Nodular goiter 241.9 Active Problem Insomnia G47.00 Active Assessment Recurrent pneumonia J18.9 Active Problem CIDP (chronic inflammatory demyelinating polyneuropathy) [...] Instructions Start Date End Date Status Dosage Augmentin [facility] [address]-72 875-125 MG Orally every 12 hrs October 21, 2015 October 28, 2015 Active 1 tablet Clonidine HCl [facility] [address]-94 0.1 MG Orally once every night Active 1 tablet Alprazolam [facility] [address]-44 0.25 MG Orally once a day prn September 13, 2012 Active 1 tablet Zolpidem Tartrate [facility] [address]-51 10 mg orally once every night as needed Dec 26, 2012 Active 1 tablet Amlodipine Besylate [facility] [address]-07 5 MG orally once a day Active 1 tablet Lipitor [facility] 10934245648 10 Orally Once a day Active 1 tablet Lansoprazole [facility] [address]-34 30 mg Orally once a day Active 1 tablet Oxybutynin Chloride [facility] [address]-05 5 MG Orally Twice a day Active 1 tablet HydrOXYzine HCl [facility] [address]-57 10 mg Orally Three times a day prn November 12, 2013 Active 1 tablet as needed Antivert [facility] [address]-75 25 MG Orally tid as needed for dizziness Mar 17, 2014 Active 1 tablet Losartan Potassium [facility] [address]-50 100 mg orally Once a day Active 1 tablet Social History Social History Element Qualifiers Date Reported Occupation: . Retired October 21, 2015 children . 2 October 21, 2015 Ethnicity . Status , Is tajik your primary language? Yes October 21, 2015 Tobacco Use: . Are you a: never smoker October 21, 2015 Last Colonoscopy: . 10/17/15-normal October 21, 2015 Use of recreational / street drugs? . Answer: No October 21, 2015 Do you have pets? . Status: No October 21, 2015 Where or with whom do you live ? . Spouse October 21, 2015 Last Bone Density: . 2014October 21, 2015 Marital Status: . October 21, 2015 Caffeine intake? . Status: Yes, What type: Coffee, Tea, Soft Drinks October 21, 2015 Do you exercise? . Answer: No October 21, 2015 Flu Vaccine: . 2014October 21, 2015 Depression Screening: . negative October 21, 2015 Do you drink alcohol? . Status: Yes, Type: Rarely October 21, 2015 Vital Signs Date/Time: October 21, 2015 Weight 138 lbs Height 66 in Cardiac Monitoring Heart Rate 85 /min Blood Pressure Diastolic 72 mm Hg Blood Pressure Systolic 128 mm Hg Summary Purpose eClinicalWorks Submission
--- OUTSIDE RECORDS SUMMARY | 2018-07-14 20:22 | XMS REPORT ---
Author Author Michael Saucedo Organization eClinicalWorks Address Unknown Phone Unavailable Care Team Providers Care Document Photographer Name Role Phone Michael Saucedo CP Unavailable Allergies, Adverse Reactions, Alerts Substance [...] unspecified intestinal tract location K57.90 Active Assessment Benign essential hypertension I10 Active Assessment URI with cough and congestion J06.9 Active Problem Generalized anxiety disorder F41.1 Active Problem Benign essential hypertension I10 Active Problem Hiatal hernia K44.9 Active Problem Benign essential tremor G25.0 Active Problem Dysphagia, unspecified type R13.10 Active Problem Goiter E04.9 Active Medications Medication Code System Code Instructions Start Date End Date Status Dosage Ceftin [facility] [address]-88 250 MG Orally Twice a day July 14, 2016 July 24, 2016 Active 1 tablet Antivert [facility] [address]-36 25 MG Orally tid as needed for dizziness Mar 17, 2014 Active 1 tablet Losartan Potassium [facility] 10766174896 100 MG Active TAKE 1 TABLET ONE TIME DAILY Amlodipine Besylate [facility] 48898205599 5 MG Active TAKE 1 TABLET ONE TIME DAILY Alprazolam [facility] [address]-89 0.25 MG Orally once a day prn September 13, 2012 Active 1 tablet HydrOXYzine HCl [facility] [address]-23 10 mg Orally Three times a day prn November 12, 2013 Active 1 tablet as needed Lipitor [facility] 61491850673 10 Orally Once a day Active 1 tablet Oxybutynin Chloride [facility] [address]-71 5 MG Orally Twice a day Active 1 tablet Zolpidem Tartrate [facility] [address]-37 10 mg orally once every night as needed Dec 26, 2012 Active 1 tablet Lansoprazole [facility] [address]-60 30 mg Orally once a day Active 1 tablet Lipitor [facility] 26202886334 10 MG Active TAKE 1 TABLET EVERY DAY Vital Signs Date/Time: July 14, 2016 BMI 19.53 Index Weight 121 lbs Height 66 in Temperature 98.4 F Blood Pressure Diastolic 70 mm Hg Blood Pressure Systolic 140 mm Hg Results No Known Results Summary Purpose eClinicalWorks Submission
--- OUTSIDE RECORDS SUMMARY | 2018-07-14 20:22 | XMS REPORT ---
Author Author Nita Ohara Organization eClinicalWorks Address Unknown Phone Unavailable Care Team Providers Care Aerial Planting And Cultivation Manager Name Role Phone Nita Ohara Unavailable Encounters Encounter Location Date [facility] Feb 17, 2014 Unknown [facility] September 23, 2015 UTI and Pneumonia [facility] July 31, 2015 still has UTI [facility] July 28, 2015 2 week follow up [facility] November 05, 2015 Unknown [facility] August 08, 2014 Refill [facility] Mar 09, 2016 Unknown [facility] August 26, 2014 Unknown [facility] October 07, 2015 Refill [facility] Apr 23, 2014 3 MONTH FOLLOW UP [facility] October 21, 2015 Unknown [facility] July 22, 2014 Needs call back from Medical Staff [facility] Mar 17, 2014 RESULTS [facility] Apr 08, 2014 US/THYROID DR[facility]G [facility] Feb 26, 2014 2 week follow up /ECHO RESULTS [facility] Mar 12, 2014 question [facility] August 27, 2014 Unknown [facility] Mar 11, 2013 Unknown [facility] August 13, 2013 [email or web address] [facility] November 21, 2013 Eye swelling [facility] November 12, 2013 Unknown [facility] Feb 15, 2013 RASH [facility] Feb 11, 2013 depomedrol 120/Decadron 4mg IM [facility] Feb 15, 2013 4 week follow up [facility] September 23, 2014 Unknown [facility] September 02, 2014 MED REFILL/ SHOULDER PAIN [facility] November 04, 2013 HOSPITAL [facility] Feb 25, 2013 stomach virus? chills [facility] July 07, 2015 follow up [facility] July 09, 2015 Unknown [facility] July 16, 2015 2 week follow up [facility] July 17, 2015 physical exam [facility] Apr 14, 2015 Unknown [facility] Apr 21, 2015 Refill [facility] May 04, 2015 Unknown [facility] July 07, 2015 Problems Problem Type Condition [...] Date End Date Status Dosage Zolpidem Tartrate [facility] [address]-54 10 mg orally once every night as needed Dec 26, 2012 Active 1 tablet Social History Social History Element Qualifiers Date Reported Occupation: . Retired November 05, 2015 children . 2 November 05, 2015 Ethnicity . Status , Is qatari your primary language? Yes November 05, 2015 [...] Status: Yes, Type: Rarely November 05, 2015 Summary Purpose eClinicalWorks Submission
--- OUTSIDE RECORDS SUMMARY | 2018-07-14 20:22 | XMS REPORT ---
Author Author Nita Ohara Organization eClinicalWorks Address Unknown Phone Unavailable Care Team Providers Care Shoe Worker Name Role Phone Nita Ohara Unavailable Encounters Encounter Location Date [facility] Feb 17, 2014 Unknown [facility] September 23, 2015 UTI and Pneumonia [facility] July 31, 2015 still has UTI [facility] July 28, 2015 Unknown [facility] August 08, 2014 Unknown [facility] August 26, 2014 Refill [facility] Apr 23, 2014 Unknown [facility] July 22, 2014 Needs call back from Medical Staff [facility] Mar 17, 2014 RESULTS [facility] Apr 08, 2014 US/THYROID DR[facility]G [facility] Feb 26, 2014 2 week follow up /ECHO RESULTS [facility] Mar 12, 2014 question [facility] August 27, 2014 Unknown [facility] Mar 11, 2013 Unknown [facility] August 13, 2013 [email or web address] [facility] November 21, 2013 Eye swelling [facility] November 12, 2013 Unknown [facility] Feb 15, 2013 RASH [facility] Feb 11, 2013 depomedrol 120/Decadron 4mg IM [facility] Feb 15, 2013 4 week follow up [facility] September 23, 2014 Unknown [facility] September 02, 2014 MED REFILL/ SHOULDER PAIN [facility] November 04, 2013 [facility] Feb 25, 2013 stomach virus? chills [facility] July 07, 2015 follow up [facility] July 09, 2015 Unknown [facility] July 16, 2015 2 week follow up [facility] July 17, 2015 physical exam [facility] Apr 14, 2015 Unknown [facility] Apr 21, 2015 Refill [facility] May 04, 2015 Unknown [facility] July 07, 2015 Problems [...] 31, 2015 Ethnicity . Status , Is cuban your primary language? Yes July 31, 2015 [...]
--- OUTSIDE RECORDS SUMMARY | 2018-07-14 20:22 | XMS REPORT ---
Author Author Nita Ohara [facility] eClinicalWorks Address Unknown Phone Unavailable Care Team Providers Care Carbon Sequestration Plant Engineer Name Role Phone Rendon Nita Orourke CP Unavailable Allergies, Adverse Reactions, Alerts Substance Reaction Event Type Morphine Sulfate Info Not Available Drug Allergy Aspir-81 Info Not Available Drug Allergy Encounters Encounter Location Date HOSPITAL [facility] Feb 17, 2014 Unknown [facility] September 23, 2015 UTI and Pneumonia [facility] July 31, 2015 still has UTI [facility] July 28, 2015 2 week follow up [facility] November 05, 2015 Unknown [facility] August 08, 2014 Refill [facility] Mar 09, 2016 Unknown [facility] August 26, 2014 Unknown [facility] October 07, 2015 Refill [facility] Apr 23, 2014 3 MONTH FOLLOW UP [facility] October 21, 2015 Unknown [facility] July 22, 2014 Needs call back from Medical Staff [facility] Mar 17, 2014 RESULTS [facility] Apr 08, 2014 Unknown [facility] Jun 07, 2016 US/THYROID DR.G [facility] Feb 26, 2014 physical exam [facility] Jun 01, 2016 2 week follow up /ECHO RESULTS [facility] Mar 12, 2014 question [facility] August 27, 2014 Unknown [facility] Mar 11, 2013 Unknown [facility] August 13, 2013 [email or web address] [facility] November 21, 2013 Eye swelling [facility] November 12, 2013 Unknown [facility] Feb 15, 2013 RASH [facility] Feb 11, 2013 depomedrol 120/Decadron 4mg IM [facility] Feb 15, 2013 4 week follow up [facility] September 23, 2014 Unknown [facility] September 02, 2014 MED REFILL/ SHOULDER PAIN [facility] November 04, 2013 HOSPITAL FU [facility] Feb 25, 2013 stomach virus? chills [facility] July 07, 2015 follow up [facility] July 09, 2015 Unknown [facility] July 16, 2015 2 week follow up [facility] July 17, 2015 physical exam [facility] Apr 14, 2015 Unknown [facility] Apr 21, 2015 Refill [facility] May 04, 2015 Unknown [facility] July 07, 2015 Problems Problem Type Condition ICD-9 Code Onset Dates Condition Status Assessment Body mass index (BMI) of 19 or less in adult Z68.1 Active Assessment Underweight R63.6 Active Assessment Nodular thyroid disease E04.1 Active Assessment Upper respiratory tract infection, unspecified type J06.9 Active Assessment Diverticulosis of intestine without bleeding, unspecified intestinal tract location K57.90 Active Assessment Dysphagia, unspecified type R13.10 Active Assessment Hiatal hernia K44.9 Active Assessment Vertigo R42 Active Assessment GERD (gastroesophageal reflux disease) K21.9 Active Problem Benign essential tremor G25.0 Active Assessment 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 Problem Goiter E04.9 Active Assessment Insomnia G47.00 Active Problem Nodular goiter 241.9 Active Problem Hyperlipidemia, unspecified E78.5 Active Problem Nodular thyroid disease E04.1 Active Problem Insomnia G47.00 Active Problem 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 Assessment Benign essential hypertension I10 Active Assessment Benign essential tremor G25.0 Active Problem Hyperlipidemia E78.5 Active Assessment Generalized anxiety disorder F41.1 Active Problem Other pruritus L29.8 Active Problem Anxiety F41.9 Active Problem GERD (gastroesophageal reflux disease) K21.9 Active Problem Vertigo R42 Active Problem Schatzki's ring K22.2 Active Problem Diverticulosis of intestine without bleeding, unspecified intestinal tract location K57.90 Active Assessment Hyperlipidemia, unspecified E78.5 Active Assessment Routine general medical examination at a health care facility Z00.00 Active Problem Generalized anxiety disorder F41.1 Active Problem Benign essential hypertension I10 Active Problem Hiatal hernia K44.9 Active Problem Dysphagia, unspecified type R13.10 Active Medications Medication Code System Code Instructions Start Date End Date Status Dosage HydrOXYzine HCl [facility] [address]-92 10 mg Orally Three times a day prn November 12, 2013 Active 1 tablet as needed Lipitor [facility] 22529959113 10 MG Active TAKE 1 TABLET ONE TIME DAILY Amlodipine Besylate [facility] [address]-03 5 MG orally once a day Active 1 tablet Alprazolam [facility] [address]-95 0.25 MG Orally once a day prn September 13, 2012 Active 1 tablet Lipitor [facility] 93754144364 10 Orally Once a day Active 1 tablet Oxybutynin Chloride [facility] [address]-00 5 MG Orally Twice a day Active 1 tablet Lansoprazole [facility] [address]-53 30 mg Orally once a day Active 1 tablet Losartan Potassium [facility] [address]-09 100 mg orally Once a day Active 1 tablet Clonidine HCl [facility] [address]-69 0.1 MG Orally once every night Inactive 1 tablet Zolpidem Tartrate [facility] [address]-12 10 mg orally once every night as needed Dec 26, 2012 Active 1 tablet Amoxicillin [facility] [address]-38 250 MG Orally every 8 hrs Jun 01, 2016 Jun 08, 2016 Active 1 capsule Antivert [facility] [address]-23 25 MG Orally tid as needed for dizziness Mar 17, 2014 Active 1 tablet Social History Social History Element Qualifiers Date Reported Occupation: . Retired Jun 01, 2016 children . 2 Jun 01, 2016 Ethnicity . Status , Is faroese your primary language? Yes Jun 01, 2016 [...] 2016 Last Bone Density: . unknown, possible 2015Jun 01, 2016 Caffeine intake? . Status: Yes, What type: Coffee, Tea, Soft Drinks Jun 01, 2016 Do you exercise? . Answer: No Jun 01, 2016 Flu Vaccine: . 2015 Jun 01, 2016 Depression Screening: . negative Jun 01, 2016 Do you drink alcohol? . Status: Yes, Type: Rarely Jun 01, 2016 Vital Signs Date/Time: Jun 01, 2016 Weight 123 lbs Height 66 in Cardiac Monitoring Heart Rate 68 /min Blood Pressure Diastolic 68 mm Hg Blood Pressure Systolic 158 mm Hg Results Urinalysis, Routine Summary Purpose eClinicalWorks Submission
--- OUTSIDE RECORDS SUMMARY | 2018-07-14 20:23 | XMS REPORT | CCD ---
Author Author Auto Generated Organization [facility] Address Unknown Phone Unavailable Care Team Providers Care Log Cut Off Sawyer Name Role Phone Katarzyna Hodgson CP Allergies, [...] Duration: 30 day, Stop date: 03/23/13 17:05:00Max [id number]=[id number]/day (4 gm/day). (Same as: Tylenol) docusate 100 [...] values reflect the clinical guidelines of the [place] [employer]. HEMATOLOGY Most recent to oldest [...]
--- OUTSIDE RECORDS SUMMARY | 2018-07-14 20:23 | XMS REPORT | CCD ---
Author Author Auto Generated Organization [facility] Address Unknown Phone Unavailable Care Team Providers Care Wood Processing Worker Name Role Phone Katarzyna Hodgson CP Allergies, [...] Duration: 30 day, Stop date: 03/23/13 17:05:00Max [id number]=5750nk/day (4 gm/day). (Same as: Tylenol) docusate 100 [...] values reflect the clinical guidelines of the [place] [employer]. HEMATOLOGY Most recent to oldest [...]
--- OUTSIDE RECORDS SUMMARY | 2018-07-14 20:23 | XMS REPORT | Summary of Care ---
Author Author [facility] Organization [facility] Address Unknown Phone Unavailable Encounter HQ Tony(DORA) [id number] Date(s): 03/18/16 - 03/21/16 [facility] [address] [place] [address]- Discharge Disposition: Home or Self Care Attending Physician: Ronda Prasad MD Admitting Physician: Ronda Prasad MD Vital Signs 1 2 3 Most recent to oldest [Reference Range]: 170.18 cm (03/19/16 10:06 AM) 162.56 cm (03/18/16 11:22 PM) Height 98.3 DegF (03/21/16 11:30 AM) 98.4 DegF (03/21/16 7:22 AM) 97.7 DegF (03/21/16 4:15 AM) Temperature Oral [96.4-99.1 DegF] 127/61 mmHg (03/21/16 11:30 AM) 149/68 mmHg *HI* (03/21/16 7:22 AM) 129/67 mmHg (03/21/16 4:15 AM) Blood Pressure [90-140/60-90 mmHg] 18 BRMIN (03/21/16 11:30 AM) 16 BRMIN (03/21/16 7:22 AM) 18 BRMIN (03/21/16 4:15 AM) Respiratory Rate [14-20 BRMIN] 72 bpm (03/21/16 11:30 AM) 70 bpm (03/21/16 7:22 AM) 66 bpm (03/21/16 4:15 AM) Peripheral Pulse Rate [60-100 bpm] 58.182 kg (03/20/16 9:00 AM) 58.182 kg (03/19/16 10:06 AM) 54.545 kg (03/18/16 11:22 PM) Weight 20.09 m2 (03/19/16 10:06 AM) 20.64 m2 (03/18/16 11:22 PM) Body Mass Index Problem List Condition Effective Dates Status Health Status Informant Degenerative disc Resolved disease(Confirmed) Hiatal Resolved hernia(Confirmed) Hypertension(Confirm Resolved ed) Impaired glucose Resolved tolerance(Confirmed) Neuropathy(Confirmed Resolved ) Allergies, Adverse Reactions, Alerts Substance Reaction Severity Status aspirin Active morphine Active Medications ALPRAZOLam 0.25 mg oral tablet 0.25 mg=1 tab, PO, BID, PRN anxiety, stress, # 20 tab, 0 Refill(s) Start Date: 03/19/16 Stop Date: 03/29/16 Status: Ordered ALPRAZOLam 0.25 mg oral tablet 0.25 mg, 1 tab, Route: PO, Drug form: TAB, BID, Dosing Weight 58.182, kg, PRN as needed for anxiety, Start date: 03/19/16 12:29:00 [employer], Duration: 30 day, Stop d ate: 04/18/16 12:28:00 [employer] PROFESSOR Notes: With food or milk(Same as: Xanax) Start Date: 03/19/16 Stop Date: 03/21/16 Status: Discontinued amLODIPine 5 mg, 1 tab, Route: PO, Drug form: TAB, QPM, Dosing Weight 58.182, kg, Start raysa e: 03/19/16 17:00:00 [employer], Duration: 30 day, Stop date: 04/17/16 17:00:00 [employer] PROFESSOR Notes: (Same as: Norvasc) Start Date: 03/19/16 Stop Date: 03/21/16 Status: Discontinued cloNIDine 0.1 mg oral tablet 0.1 mg, 1 tab, Route: PO, Drug form: TAB, Daily, Dosing Weight 58.182, kg, PRN E levated BP, Start date: 03/19/16 12:29:00 [employer], Duration: 30 day, Stop date: 04/07 06/23 12:28:00 [employer] PROFESSOR, htn Notes: (Same As: Catapres) Start Date: 03/19/16 Stop Date: 03/21/16 Status: Discontinued docusate 100 mg, 1 cap, Route: PO, Drug form: CAP, BID, Dosing Weight 54.545, kg, PRN Con stipation, Start date: 03/19/16 9:22:00 [employer] PROFESS[employer], Duration: 30 day, Stop date: 9:21:00 [employer] PROFESSOR Notes: (Same as: Colace) (Do Not Crush) Start Date: 03/19/16 Stop Date: 03/21/16 Status: Discontinued Dulcolax Laxative 10 mg, 1 supp, Route: MS, Drug form: SUPP, BID, Dosing Weight 58.182, kg, Start date: 03/19/16 17:00:00 [employer] PROFESS[employer], Duration: 30 day, Stop date: 04/18/16 9:00:00 [employer] PROFESSOR Notes: (Same As: Dulcolax, Bisco-Lax) Start Date: 03/19/16 Stop Date: 03/21/16 Status: Discontinued GoLYTELY 4,000 ml, Route: PO, Drug Form: PDR/REC, Dosing Weight 58.182, kg, ONCE, Start d ate: 03/19/16 12:32:00 [employer] PROF[employer], Duration: 1 doses or times, Stop date: 03/19/16 12:3 2:00 [employer] PROFESSOR Notes: (polyethylene glycol electrolyte solution 4 Liter bottle) (Same as: Gol ytely, Colyte) Start Date: 03/19/16 Stop Date: 03/19/16 Status: Completed lactulose 20 gm, 30 ml, Route: PO, Drug Form: SYRP, Dosing Weight 58.182, kg, Daily, PRN C onstipation, Start date: 03/19/16 12:32:00 [employer] PROFESSOR, Duration: 30 day, Stop date: 04/22 12:31:00 [employer] PROFESSOR Notes: (Same as:Chronulac) Start Date: 03/19/16 Stop Date: 03/21/16 Status: Discontinued losartan 100 mg, 2 tab, Route: PO, Drug form: TAB, QAM, Dosing Weight 58.182, kg, Start d ate: 03/20/16 9:00:00 [employer], Duration: 30 day, Stop date: 04/18/16 9:00:00 [employer] PROFESSOR Notes: (Same as: Cozaar) Start Date: 03/20/16 Stop Date: 03/21/16 Status: Discontinued meclizine 25 mg, 1 tab, Route: PO, Drug form: TAB, TID, Dosing Weight 58.182, kg, PRN Dizz iness, Start date: 03/19/16 12:30:00 [employer] PROF[employer], Duration: 30 day, Stop date: 04/18/16 12:29:00 [employer] PROFESSOR Notes: (Same as: Antivert) Start Date: 03/19/16 Stop Date: 03/21/16 Status: Discontinued meclizine 25 mg oral tablet 25 mg=1 tab, PO, TID, PRN for dizziness, # 60 tab, 0 Refill(s) Start Date: 03/19/16 Stop Date: 04/08/16 Status: Ordered MiraLax 17 gm, 1 pkt, Route: PO, Drug form: PWDR, BID, Dosing Weight 58.182, kg, Start d ate: 03/19/16 17:00:00 [employer], Duration: 30 day, Stop date: 04/18/16 9:00:00 [employer] PROFESSOR Notes: Dissolve in 8 oz of water or juice.(Same as: Miralax) Start Date: 03/19/16 Stop Date: 03/21/16 Status: Discontinued ondansetron 4 mg, 2 mL, Route: IVP, Drug form: INJ, Q6H, Dosing Weight 54.545, kg, PRN Nause a & Vomiting, Start date: 03/19/16 9:22:00 [employer], Duration: 30 day, Stop date: 04/18/16 9:21:00 [employer] PROFESSOR Notes: (Same as: Tracey) MEDICATION WASTE Product Size: 4 mgProduct Was veronica: ___ mg Start Date: 03/19/16 Stop Date: 03/21/16 Status: Discontinued oxybutynin 5 mg, 1 tab, Route: PO, Drug form: TAB, BID, Dosing Weight 58.182, kg, Start raysa e: 03/19/16 17:00:00 [employer] PROFESSOR, Duration: 30 day, Stop date: 04/18/16 9:00:00 [employer] PROFESSOR Notes: Same as: Ditropan) Start Date: 03/19/16 Stop Date: 03/21/16 Status: Discontinued oxybutynin 5 mg oral tablet 5 mg=1 tab, PO, BID, # 60 tab, 1 Refill(s) Start Date: 03/19/16 Status: Ordered pneumococcal 13-valent vaccine 0.5 mL, Route: IM, Drug Form: INJ, Daily, Start date: 03/20/16 9:00:00 [employer], Stop date: 03/20/16 15:00:00 [employer] PROFESSOR Notes: Lightly roll vial (DO NOT SHAKE) before administration. (Same as: Katlin alvarenga 13) Start Date: 03/20/16 Stop Date: 03/20/16 Status: Completed Protonix 40 mg, 1 pkt, Route: NG, Drug form: GRAN/REC, Before Dinner, Dosing Weight 58.18 2, kg, Start date: 03/19/16 16:30:00 [employer] PROFESSOR, Duration: 30 day, Stop date: 04/17/16 16:30:00 [employer] PROFESSOR Start Date: 03/19/16 Stop Date: 03/21/16 Status: Discontinued sodium chloride 0.9% 1000 ml INJ 1,000 mL 1,000 mL, Rate: 100 ml/hr, Infuse over: 10 hr, Route: IV, Dosing Weight 58.182 k g, Total Volume: 1,000, Start date: 03/19/16 12:33:00 [employer], Duration: 30 day, Sto p date: 04/18/16 12:32:00 [employer] PROFESSOR Start Date: 03/19/16 Stop Date: 03/21/16 Status: Discontinued Tylenol 650 mg, 2 tab, Route: PO, Drug form: TAB, Q6H, Dosing Weight 58.182, kg, PRN Lia n Score 4-6, Start date: 03/20/16 15:41:00 [employer] PROF[employer]OR, Duration: 30 day, Stop date: 15:40:00 [employer] PROFESSOR Notes: Do not exceed 4 gm/day. (Same as: Tylenol) Start Date: 03/20/16 Stop Date: 03/21/16 Status: Discontinued Zofran 4 mg, Route: IVP, Drug form: INJ, ONCE, Dosing Weight 54.545, kg, Priority: STAT , Start date: 03/19/16 7:28:00 [employer] PROFESSOR, Stop date: 03/19/16 7:28:00 [employer] PROFESSOR Start Date: 03/19/16 Stop Date: 03/19/16 Status: Completed zolpidem 5 mg, 1 tab, Route: PO, Drug form: TAB, Bedtime, Dosing Weight 58.182, kg, PRN S leep, Start date: 03/19/16 12:30:00 [employer] PROFESSOR, Duration: 30 day, Stop date: 04/18/16 1 2:29:00 [employer] PROFESSOR Notes: (Same As: Bonnie) Start Date: 03/19/16 Stop Date: 03/21/16 Status: Discontinued zolpidem 5 mg, 1 tab, Route: PO, Drug form: TAB, Bedtime, Dosing Weight 58.182, kg, Start date: 03/19/16 21:00:00 [employer] PROFESSOR, Duration: 30 day, Stop date: 04/17/16 21:00:00 [employer]UD[employer] PROFESSOR Notes: (Same As: Bonnie) Start Date: 03/19/16 Stop Date: 03/21/16 Status: Discontinued zolpidem 10 mg oral tablet 10 mg=1 tab, PO, Bedtime, # 14 tab, 0 Refill(s) Start Date: 03/19/16 Stop Date: 03/21/16 Status: Discontinued Results BLOOD BANK RESULTS 1 2 3 Most recent to oldest [Reference Range]: A POS *Unknown* (03/19/16 3:34 AM) ABO/Rh Negative (03/19/16 3:34 AM) Antibody Scrn ELECTROLYTES 1 2 3 Most recent to oldest [Reference Range]: 145 mEq/L (03/21/16 3:16 AM) 141 mEq/L (03/19/16 12:39 AM) Sodium Lvl [135-145 mEq/L] 3.1 mEq/L *LOW* (03/21/16 3:16 AM) 3.3 mEq/L *LOW* (03/19/16 12:39 AM) Potassium Lvl [3.5-5.1 mEq/L] 109 mEq/L (03/21/16 3:16 AM) 104 mEq/L (03/19/16 12:39 AM) Chloride Lvl [95-109 mEq/L] 28 mEq/L (03/21/16 3:16 AM) 28 mEq/L (03/19/16 12:39 AM) CO2 [24-32 mEq/L] 11.1 mEq/L (03/21/16 3:16 AM) 12.3 mEq/L (03/19/16 12:39 AM) AGAP [10.0-20.0 mEq/L] CHEM PANEL 1 2 3 Most recent to oldest [Reference Range]: 0.58 mg/dL (03/21/16 3:16 AM) 0.69 mg/dL (03/19/16 12:39 AM) Creatinine Lvl [0.50-1.40 mg/dL] 86 mL/min/1.73m2 1 *NA* (03/21/16 3:16 AM) 81 mL/min/1.73m2 2 *NA* (03/19/16 12:39 AM) eGFR 6 mg/dL *LOW* (03/21/16 3:16 AM) 16 mg/dL (03/19/16 12:39 AM) BUN [7-22 mg/dL] 23 (03/19/16 12:39 AM) B/C Ratio [6-25] 69 mg/dL *LOW* (03/21/16 3:16 AM) 93 mg/dL (03/19/16 12:39 AM) Glucose Lvl [70-99 mg/dL] 7.1 g/dL (03/19/16 12:39 AM) Total Protein [6.4-8.4 g/dL] 3.9 g/dL (03/19/16 12:39 AM) Albumin Lvl [3.5-5.0 g/dL] 3.2 g/dL (03/19/16 12:39 AM) Globulin [2.7-4.2 g/dL] 1.2 (03/19/16 12:39 AM) A/G Ratio [0.7-1.6] 7.6 mg/dL *LOW* (03/21/16 3:16 AM) 8.9 mg/dL (03/19/16 12:39 AM) Calcium Lvl [8.5-10.5 mg/dL] 20 unit/L (03/19/16 12:39 AM) ALT [0-65 unit/L] 21 unit/L (03/19/16 12:39 AM) AST [0-37 unit/L] 51 unit/L (03/19/16 12:39 AM) Alk Phos [39-136 unit/L] 0.4 mg/dL (03/19/16 12:39 AM) Bili Total [0.2-1.3 mg/dL] 239 unit/L (03/19/16 12:39 AM) Lipase Lvl [73-393 unit/L] 1Result Comment: The eGFR is calculated using [...] be mul tiplied by the estimated BMI. 2Result Comment: The eGFR is calculated using the [...] be mul tiplied by the estimated BMI. URINE AND STOOL 1 2 3 Most recent to oldest [Reference Range]: Clear (03/19/16 5:16 AM) UA Turbidity [Clear] Ltyellow *NA* (03/19/16 5:16 AM) UA Color 7.0 (03/19/16 5:16 AM) UA pH [5.0-8.0] 1.016 (03/19/16 5:16 AM) UA Spec Grav [<=1.030] Negative mg/dL *NA* (03/19/16 5:16 AM) UA Glucose [Negative mg/dL] Negative (03/19/16 5:16 AM) UA Blood [Negative] Negative mg/dL *NA* (03/19/16 5:16 AM) UA Ketones [Negative mg/dL] Negative mg/dL (03/19/16 5:16 AM) UA Protein [Negative mg/dL] <=1.0 mg/dL *NA* (03/19/16 5:16 AM) UA Urobilinogen [0.1-1.0 mg/dL] Negative *NA* (03/19/16 5:16 AM) UA Bili [Negative] Negative (03/19/16 5:16 AM) UA Leuk Est [Negative] Negative (03/19/16 5:16 AM) UA Nitrite [Negative] 1 /HPF (03/19/16 5:16 AM) UA WBC [0-5 /HPF] 1 /HPF (03/19/16 5:16 AM) UA RBC [0-2 /HPF] Occasional /LPF *NA* (03/19/16 5:16 AM) UA Sq Epi [Few /LPF] Positive *ABN* (03/19/16 5:42 AM) Occult Bld Stl [Negative] HEMATOLOGY 1 2 3 Most recent to oldest [Reference Range]: 6.1 K/CMM (03/21/16 3:16 AM) 10.5 K/CMM *HI* (03/19/16 12:39 AM) WBC [3.7-10.4 K/CMM] 3.60 M/CMM *LOW* (03/21/16 3:16 AM) 4.21 M/CMM (03/19/16 12:39 AM) RBC [4.20-5.40 M/CMM] 10.0 g/dL *LOW* (03/21/16 3:16 AM) 10.6 g/dL *LOW* (03/19/16 3:12 PM) 12.2 g/dL (03/19/16 12:39 AM) Hgb [12.0-16.0 g/dL] 31.1 % *LOW* (03/21/16 3:16 AM) 32.6 % *LOW* (03/19/16 3:12 PM) 36.0 % (03/19/16 12:39 AM) Hct [36.0-48.0 %] 86.5 fL (03/21/16 3:16 AM) 85.5 fL (03/19/16 12:39 AM) MCV [80.0-98.0 fL] 27.8 pg (03/21/16 3:16 AM) 28.9 pg (03/19/16 12:39 AM) MCH [27.0-31.0 pg] 32.2 g/dL (03/21/16 3:16 AM) 33.8 g/dL (03/19/16 12:39 AM) MCHC [32.0-36.0 g/dL] 13.7 % (03/21/16 3:16 AM) 13.6 % (03/19/16 12:39 AM) RDW [11.5-14.5 %] 158 K/CMM (03/21/16 3:16 AM) 173 K/CMM (03/19/16 12:39 AM) Platelet [133-450 K/CMM] 9.1 fL (03/21/16 3:16 AM) 9.0 fL (03/19/16 12:39 AM) MPV [7.4-10.4 fL] 50.0 % (03/21/16 3:16 AM) 75.4 % *HI* (03/19/16 12:39 AM) Segs [45.0-75.0 %] 39.3 % (03/21/16 3:16 AM) 16.8 % *LOW* (03/19/16 12:39 AM) Lymphocytes [20.0-40.0 %] 8.5 % (03/21/16 3:16 AM) 7.2 % (03/19/16 12:39 AM) Monocytes [2.0-12.0 %] 1.8 % (03/21/16 3:16 AM) 0.4 % (03/19/16 12:39 AM) Eosinophils [0.0-4.0 %] 0.4 % (03/21/16 3:16 AM) 0.2 % (03/19/16 12:39 AM) Basophils [0.0-1.0 %] 3.1 K/CMM (03/21/16 3:16 AM) 7.9 K/CMM (03/19/16 12:39 AM) Segs-Bands # [1.5-8.1 K/CMM] 2.4 K/CMM (03/21/16 3:16 AM) 1.8 K/CMM (03/19/16 12:39 AM) Lymphocytes # [1.0-5.5 K/CMM] 0.5 K/CMM (03/21/16 3:16 AM) 0.8 K/CMM (03/19/16 12:39 AM) Monocytes # [0.0-0.8 K/CMM] 0.1 K/CMM (03/21/16 3:16 AM) Eosinophils # [0.0-0.5 K/CMM] 13.0 seconds (03/19/16 3:34 AM) PT [12.0-14.7 seconds] 0.96 (03/19/16 3:34 AM) INR [0.85-1.17] 33.7 seconds (03/19/16 3:34 AM) PTT [22.9-35.8 seconds] Immunizations Not Given Vaccine Date Status Refusal Reason pneumococcal 13-valent vaccine 03/20/16 Not Given Patient Refuses Procedures Procedure Date Related Diagnosis Body Site Cataract surgery Cholecystectomy Colonoscopy Social History Social History Type Response Smoking Status Never smoker; Exposure to Tobacco Smoke None; Cigarette Smoking Last 365 Days No; Reg Smoking Cessation Counseling No Assessment and Plan Extracted from: Title: Clinical Document Author: Ronda Prasad MD Date: 03/20/16 IPC Daily Progress Note [facility] Ronda Prasad MD SUBJECTIVE: pt seen and examined, events noted pt still co of severe abd pain OBJECTIVE: Vitals and Temp: VitalsTmp(F)[id number] 03/20 12:29----12245/7218------ 03/20 11:2197.018351/[id number]--- 03/20 07:[id number]/[id number]--- 03/20 03:[id number]/[id number]--- 03/20 01:[id number]--- 24 Hr Tmax: 98.4F (36.89c) at 03/19 17:42Vital Signs are the last 5 in the past 48 hours. Labs (Last four charted values) WBC H 10.5(MAR 19) Hgb L 10.6(MAR 19)12.2(MAR 19) Hct L 32.6(MAR 19)36.0(MAR 19) Plt 173(MAR 19) Na 141(MAR 19) K L 3.3(MAR 19) CO2 28(MAR 19) Cl 104(MAR 19) Cr 0.69(MAR 19) BUN 16(MAR 19) Glucose Random 93(MAR 19) Ca 8.9(MAR 19) PT 13.0(MAR 19) INR 0.96(MAR 19) PTT 33.7(MAR 19) ASSESSMENT & EXAM: General: in no apparent distress at this time. Eyes: Pupils equal, round and reactive to light. Eyes normal inspection. ENT: Ears normal. Nose normal. Pharynx normal. Neck: Normal inspection. No jugular venous distention. Neck supple. CVS: Heart sounds normal. Pulses normal. no murmurs Respiratory: No respiratory distress. Breath sounds normal. no wheezing Abdomen: Soft and nontender. no organomegaly Back: Normal inspection. Skin: Skin warm and dry. Normal skin color. Extremities: Extremities exhibit normal ROM. No lower extremity edema. Neuro: Oriented X 3. No motor deficit. DIAGNOSES & PROBLEMS: 1. Fecal impaction 2. Bloody stool. 3. proctits 5. Epigastric pain. 6. Peripheral neuropathy. PLAN & TREATMENT: still taking Golytely had minimal success but still in a great deal of pain no more bleeding will order enema may need manual disimpaction cont IVF MEDICATIONS Scheduled Meds (8):amLODIPine, bisacodyl (Dulcolax Laxative), losartan, oxybutynin, pantoprazole (Protonix), pneumococcal 13-valent vaccine, polyethylene glycol 3350 (MiraLax), zolpidem Unscheduled Meds: None PRN Meds (7):ALPRAZOLam (ALPRAZOLam 0.25 mg oral tablet), cloNIDine (cloNIDine 0.1 mg oral tablet), docusate, lactulose, meclizine, ondansetron, zolpidem One Time Meds (2):(Completed) ondansetron (Zofran), (Completed) polyethylene glycol 3350 with electrolytes (GoLYTELY) Continuous Infusions (1):sodium chloride 0.9% 1000 ml INJ 1,000 mL
--- OUTSIDE RECORDS SUMMARY | 2018-07-14 20:23 | XMS REPORT ---
Author Author [facility] Address Unknown Phone Unavailable Care Team Providers Care Gerontological Nurse Practitioner Name Role Phone Unavailable Unavailable Problems This patient has no known problems. Allergies, Adverse Reactions, Alerts This patient has no known allergies or adverse reactions. Medications This patient has no known medications. Results Test Description Test Time Test Comments Text Results Atomic Results Result Comments SCR MAMM BILATERAL ZAC CAD DIGITAL 2018-03-23 08:07:04 - SCR MAMM BILATERAL ZAC CAD DIGITALBILATERAL DIGITAL SCREENING MAMMOGRAM 3D/2D WITH CAD: 03/22/2018CLINICAL: Asymptomatic. Digital breast tomosynthesis was performed in addition to routine CC and MLO views. Current mammographic images were evaluated by either a [employer] M-Vu or a [employer] Image[employer]er CAD (computer aided detection system). Comparison is made to exams dated 03/17/2017 mammogram, mammogram, and 02/24/2015 mammogram - [facility]. The tissue of both breasts is heterogeneously dense. This may lower the sensitivity of mammography. There are benign calcifications in both breasts. No suspicious mass, architectural distortion, malignant type calcification, or lymph node abnormality detected. Breast architecture is stable compared to prior exams.IMPRESSION: BENIGNThere is no mammographic evidence of malignancy. Resume annual screening mammography in one year. Kelle aguayo/johnson:03/23/2018 08:07:04 Laborer Hoisting: Gabby VERONICA, [facility] sent: BIRADS 1-2 Normal Mammogram BI-RADS: 2 Benign
--- OUTSIDE RECORDS SUMMARY | 2018-07-14 20:23 | XMS REPORT | Summary of Care ---
Author Organization Unknown Address Unknown Phone Unavailable Encounter HQ Tania_kwasi(DORA) [id number] Date(s): 03/26/14 - 03/26/14 [facility] [address] Discharge Disposition: Home Physician Attending: Katarzyna Hodgson MD Physician_Referring: Katarzyna Hodgson MD Reason for Visit 241.0 THYROID NODULE Problem List Condition Effective Dates Status Health Status Informant Degenerative disc Resolved disease(Confirmed) Hiatal Resolved hernia(Confirmed) Hypertension(Confirm Resolved ed) Impaired glucose Resolved tolerance(Confirmed) Neuropathy(Confirmed Resolved ) Allergies, Adverse Reactions, Alerts Substance Reaction Severity Status aspirin Active morphine Active Medications No data available for this section Medications Administered During Your Visit No data available for this section Immunizations No data available for this section
--- OUTSIDE RECORDS SUMMARY | 2018-07-14 20:23 | XMS REPORT | CCD ---
Author Author Auto Generated Organization [facility] Address Unknown Phone Unavailable Care Team Providers Care Voltage Tester Name Role Phone Katarzyna Hodgson CP Allergies, [...] Duration: 30 day, Stop date: 03/23/13 17:05:00Max [id number]=[id number]/day (4 gm/day). (Same as: Tylenol) docusate 100 [...] values reflect the clinical guidelines of the [employer]. HEMATOLOGY Most recent to oldest [...] *LOW* (02/21/2013:05:00) Monocytes [2.0-12.0 %] 6.3 % (02/21/2013:05:00) Eosinophils [0.0-4.0 %] 0.5 % (02/21/2013:05:00) Basophils [0.0-1.0 %] 0.2 % (02/21/2013 11:05:00) Segs-Bands # [1.5-8.1 K/CMM] 6.5 K/CMM (02/21/2013 11:05:00) Lymphocytes # [1.0-5.5 K/CMM] 1.7 K/CMM (02/21/2013:05:00) Monocytes # [0.0-0.8 K/CMM] 0.6 K/CMM (02/21/2013 11:05:00) Eosinophils # [0.0-0.5 K/CMM] 0.0 K/CMM (02/21/2013 11:05:00) Basophils # [0.0-0.2 K/CMM] 0.0 K/CMM (02/21/2013 11:05:00) Procedures Procedures Date Related Diagnosis Emergency department visit for the evaluation and management 02/21/2013 00:00:00 of a patient, which requires these 3 nicholson components within the constraints imposed by the urgency of the patient's clinical condition and/or mental status: A comprehensive history; A comprehensi
[2018-07-14] MEDS ORDERED: HYDROCODONE/APAP 5MG-325MG TAB PO ONE (21:15)
--- NOTE | 2018-07-14 21:59 | Diagnostic Imaging Report ---
EXAMINATION: Head CT without contrast. HISTORY:Status post fall. COMPARISON:Report of CT brain from 09/14/2016, prior images are not available for comparison at the time of interpretation. TECHNIQUE: Multidetector axial images were obtained from the foramen magnum to the vertex without contrast. The images were reconstructed using brain and bone algorithms. Thin section brain images were reformatted into coronal and sagittal planes. Dose modulation, iterative reconstruction, and/or weight based adjustment of the mA/kV was utilized to reduce the radiation dose to as low as reasonably achievable. Intravenous contrast: None IMAGE QUALITY: Acceptable. FINDINGS: Skull/scalp: Moderate left posterior parietal scalp edema/hematoma. No soft tissue emphysema or radiopaque foreign body. No acute depressed or displaced calvarial fracture. Parenchyma: Nonspecific bilateral frontoparietal confluent periventricular, patchy and confluent subcortical and deep white matter hypodensities are likely related to small vessel ischemic changes. No acute hemorrhage, mass or acute major vascular territorial infarct. Arteries: No density suggestive of thrombosis. Atherosclerotic calcification in bilateral carotid siphon and V4 segment of left vertebral artery. Dural sinuses: No abnormal density suggestive of thrombosis. Ventricles: Mild compensated dilatation due to volume loss. No hydrocephalus. Extra-axial spaces: No abnormal density. Brain volume: Normal for age. Craniocervical junction: No mass, Chiari malformation, or basilar invagination. Sella: No mass. Paranasal/mastoid sinuses: Imaged portions unremarkable. IMPRESSION: Moderate left posterior parietal scalp edema/hematoma. No acute fracture. No acute posttraumatic intracranial abnormality. Chronic findings: 1. Moderate supratentorial white matter microvascular ischemic changes. 2. Generalized age-related cerebral volume loss. Signed by: Dr. Bertha Layne M.D. on 07/14/2018 9:55 PM
--- NOTE | 2018-07-14 22:02 | Diagnostic Imaging Report ---
WRIST COMPLETE LEFT HISTORY: Fall. COMPARISON: None available. FINDINGS: Bones: No acute displaced fracture. Osseous alignment is within normal limits. Joints: Advanced degenerative changes of the first interphalangeal joint. Soft tissues: The soft tissues appear unremarkable. IMPRESSION: No acute radiographic abnormality. Signed by: DR. Romain Orlando MD on 07/14/2018 9:59 PM
--- NOTE | 2018-07-14 22:04 | Diagnostic Imaging Report ---
History: Status post fall. Comparison studies: Report of CT cervical spine from 09/01/2012, images are not available for comparison at the time of interpretation. Technique: Axial images were obtained through the cervical region.. Coronal and sagittal images reconstructed from the axial data. Dose modulation, iterative reconstruction, and/or weight based adjustment of the mA/kV was utilized to reduce the radiation dose to as low as reasonably achievable. Intravenous contrast: None Findings: Fractures: None. Soft tissue injuries: None. Atlantoaxial articulation: Intact. Alignment: Normal lordosis. No scoliosis. Cervicomedullary junction: No abnormalities. The foramen magnum is patent. Soft tissues: No abnormalities. Vertebrae: No fractures, infection or neoplasm. Degenerative changes: C3-C4: Moderate degenerative disc disease with intervertebral disc calcifications. Moderate left facet arthrosis without significant foraminal stenosis. C4-C5: Mild left foraminal stenosis due to facet and uncovertebral arthrosis. C5-C6: Mild left foraminal stenosis due to facet and uncovertebral arthrosis. C6-C7: Moderate degenerative disc disease. Mild right foraminal stenosis due to facet and uncovertebral arthrosis. Advanced facet arthrosis with partial bony ankylosis particularly from level C2-C5. IMPRESSION: 1. No acute cervical spine fracture or dislocation. 2. Ligament, spinal cord and or vascular abnormalities cannot be excluded on the basis of this examination. 3. Cervical spondylosis as detailed above. Signed by: Dr. Bertha Layne M.D. on 07/14/2018 10:01 PM
== END 2018-07-14 22:30 | disposition home or self-care (01) ==
LOC: ER 20:12
DX: S00.83XA Contusion of other part of head, initial encounter (principal); M25.532 Pain in left wrist; W01.0XXA Fall on same level from slipping, tripping and stumbling without subsequent striking against object, initial encounter; Y93.41 Activity, dancing; Y92.29 Other specified public building as the place of occurrence of the external cause
CPT/HCPCS: 70450; 72125; 99283

== ENCOUNTER 2020-12-29 14:12 | Emergency (ER) | payer MEDICARE, OTHER ==
[~2020-12-29] VITALS: Ht 170.2 cm; Wt 65.8 kg
[2020-12-30] MEDS ORDERED: LIDOCAINE 4% PATCH TP SCH (09:00)
[2021-01-01] MEDS ORDERED: Acetaminophen/Codeine 300-30MG PO (15:46)
[2021-01-01] MEDS ORDERED: PROTONIX40 MG/ML PO (15:46)
[2021-01-01] MEDS ORDERED: TOPROL XL25 MG PO (15:46)
== END 2020-12-29 16:49 | disposition home or self-care (01) ==
LOC: ER 15:34
DX: S42.202A Unspecified fracture of upper end of left humerus, initial encounter for closed fracture (principal); W01.0XXA Fall on same level from slipping, tripping and stumbling without subsequent striking against object, initial encounter; Y93.01 Activity, walking, marching and hiking; Y92.008 Other place in unspecified non-institutional (private) residence as the place of occurrence of the external cause
CPT/HCPCS: 99284

== ENCOUNTER 2020-12-31 17:02 | Observation (INO) | payer MEDICARE, OTHER ==
[~2020-12-31] VITALS: Ht 170.2 cm; Wt 65.8 kg
[2020-12-31] MEDS ORDERED: MORPHINE SULFATE INJ 2 MG/ML SYR IV PRN (17:15)
[2020-12-31] MEDS ORDERED: ONDANSETRON HCL INJ 2MG/ML 2ML 2 MG/ML VIAL IV PRN (17:15)
[2020-12-31 17:59] LABS: BASOPHILS % 0.5 % (0.0-1.0); EOSINOPHILS # (AUTO) 0.1 (0.0-0.4); EOSINOPHILS % 1.2 % (0.0-6.0); HEMATOCRIT 37.4 % (34.2-44.1); HEMOGLOBIN 11.9 g/dL (12.0-16.0); LYMPHOCYTES # (AUTO) 2.1 (1.0-3.2); LYMPHOCYTES % 26.4 % (18.0-39.1); MEAN CORPUSCULAR HEMOGLOBIN 28.3 pg (28-32); MEAN CORPUSCULAR HGB CONC 31.8 g/dL (31-35); MEAN CORPUSCULAR VOLUME 88.8 fL (81-99); MONOCYTES # (AUTO) 0.7 (0.2-0.8); MONOCYTES % 9.1 % (4.4-11.3); NEUTROPHILS % 62.2 % (38.7-80.0); PLATELET COUNT 184 x10e3/uL (140-360); RED BLOOD COUNT 4.21 x10e6/uL (3.6-5.1); RED CELL DISTRIBUTION WIDTH 13.5 % (11.7-14.4)
[2020-12-31] MEDS: SODIUM CHLORIDE 0.9% 1000ML 1,000 ML IV SCH ×2 (18:05→23:58)
[2020-12-31 18:16] LABS: ALBUMIN 4.1 g/dL (3.5-5.0); ANION GAP 15.8 mmol/L (8-16); CALCIUM 9.3 mg/dL (8.4-10.2); CREATININE, SERUM 0.81 mg/dL (0.57-1.11); POTASSIUM 3.8 mmol/L (3.5-5.1)
[2020-12-31 18:20] LABS: CREATINE KINASE MB 0.6 ng/mL (0-5.0)
[2020-12-31 21:31] VITALS: BP 155/79
[2020-12-31] MEDS ORDERED: ZOLPIDEM TARTRATE 5 MG TAB PO PRN (23:15)
[2020-12-31 23:19] VITALS: BP 155/79
[2020-12-31 23:20] VITALS: BP 155/79
[2021-01-01] VITALS (7 sets, daily range): BP systolic 144–165; BP diastolic 53–79
[2021-01-01 05:38] LABS: BASOPHILS % 0.6 % (0.0-1.0); EOSINOPHILS # (AUTO) 0.1 (0.0-0.4); EOSINOPHILS % 1.8 % (0.0-6.0); HEMATOCRIT 29.8 % (34.2-44.1); HEMOGLOBIN 9.4 g/dL (12.0-16.0); LYMPHOCYTES # (AUTO) 1.4 (1.0-3.2); LYMPHOCYTES % 29.1 % (18.0-39.1); MEAN CORPUSCULAR HEMOGLOBIN 28.3 pg (28-32); MEAN CORPUSCULAR HGB CONC 31.5 g/dL (31-35); MEAN CORPUSCULAR VOLUME 89.8 fL (81-99); MONOCYTES # (AUTO) 0.5 (0.2-0.8); NEUTROPHILS # (AUTO) 2.9 (2.1-6.9); NEUTROPHILS % 58.3 % (38.7-80.0); PLATELET COUNT 136 x10e3/uL (140-360); RED BLOOD COUNT 3.32 x10e6/uL (3.6-5.1); RED CELL DISTRIBUTION WIDTH 13.3 % (11.7-14.4)
[2021-01-01 06:37] LABS: ALBUMIN 3.2 g/dL (3.5-5.0); ALBUMIN/GLOBULIN RATIO 0.9 (0.8-2.0); ANION GAP 14.5 mmol/L (8-16); CALCIUM 7.9 mg/dL (8.4-10.2); CREATININE, SERUM 0.67 mg/dL (0.57-1.11); POTASSIUM 3.5 mmol/L (3.5-5.1)
[2021-01-01] MEDS ORDERED: PANTOPRAZOLE SOD 40 MG TABEC PO SCH (07:30)
[2021-01-01] MEDS ORDERED: FERROUS SULFATE 325 MG TAB PO SCH (09:00)
[2021-01-01] MEDS ORDERED: AMLODIPINE BESYLATE 5 MG TAB PO SCH (09:00)
[2021-01-01] MEDS ORDERED: LOSARTAN POTASSIUM 100 MG TAB PO SCH (09:00)
[2021-01-01] MEDS ORDERED: METOPROLOL SUCCINATE 25 MG TAB XL PO SCH (09:00)
[2021-01-01] MEDS: SODIUM CHLORIDE 0.9% 1000ML 1,000 ML IV SCH ×2 (09:15→17:15)
[2021-01-01] MEDS ORDERED: ACETAMINOPHEN/CODEINE 300MG - 30MG TAB PO PRN (11:30)
[2021-01-01] MEDS ORDERED: ZOLPIDEM TARTRATE 10 MG TAB PO PRN (14:30)
[2021-01-01] MEDS ORDERED: PROTONIX40 MG/ML PO (15:46)
[2021-01-01] MEDS ORDERED: TOPROL XL25 MG PO (15:46)
[2021-01-01] MEDS ORDERED: Acetaminophen/Codeine 300-30MG PO (15:46)
[2021-01-01 16:23] LABS: CREATINE KINASE MB 0.9 ng/mL (0-5.0)
[2021-01-01] MEDS ORDERED: ATORVASTATIN 10 MG TAB PO SCH (21:00)
[2021-01-01] MEDS ORDERED: DONEPEZIL HCL 5 MG TAB PO SCH ×2 (21:00)
== END 2021-01-01 18:15 ==
LOC: ER 17:10 → ERHOLD 19:28 → INTOOBSV 19:28 → MED/SURG 21:33
PROVIDERS: ADMIT Internal Medicine; ATTEND Internal Medicine
DX: S42.212A Unspecified displaced fracture of surgical neck of left humerus, initial encounter for closed fracture (principal); W18.30XA Fall on same level, unspecified, initial encounter; I10 Essential (primary) hypertension; R62.7 Adult failure to thrive; E86.0 Dehydration; Z86.73 Personal history of transient ischemic attack (TIA), and cerebral infarction without residual deficits; Z91.81 History of falling; Z88.6 Allergy status to analgesic agent; Z88.5 Allergy status to narcotic agent; Z68.22 Body mass index [BMI] 22.0-22.9, adult; G47.00 Insomnia, unspecified; G61.81 Chronic inflammatory demyelinating polyneuritis; R53.81 Other malaise
CPT/HCPCS: 36415 ×2; 80053 ×2; 82550 ×2; 82553 ×2; 84484 ×2; 85025 ×2; 97116; 97163; 97530; 99284; G0378 ×2; J2405; J7030 ×2; S0164; U0002